=== PATIENT | male | born 1950 | race Asian ===

== ENCOUNTER → 2017-10-28 | Day surgery (SDC) | payer MEDICARE ==
[~2017-10-28] MED LIST: Lidocaine 1% PF 5 ML VIAL ONE; PROPOFOL 200 MG/20 ML VIAL ONE; ePHEDrine/0.9% NaCl/PF SYRINGE 50 mg/10 ml ONE
--- NOTE | 2017-10-28 19:19 | OP ---
DATE OF PROCEDURE: 10/28/2017 PROCEDURE: Esophagogastroduodenoscopy. SURGEON: Sky Bay M.D. ANESTHESIA: Pain medications given by Anesthesiology Department. PREPROCEDURE DIAGNOSES: 1. Cirrhosis. 2. Variceal screening. POSTPROCEDURE DIAGNOSES: 1. Grade I esophageal varices. 2. Mild portal gastropathy. PROCEDURE IN DETAIL: A written consent was obtained prior to the procedure. After adequate sedation , the forward-viewing endoscope was advanced down the stomach under direct vision to second portion o f duodenum. The duodenum appeared normal. Pylorus was patent. Mild diffuse portal gastropathy was noted in the stomach. Retroflexion did not show any varices. Grade I lower esophageal varices were noted. There were flattened with insufflation. The mid and upper esophagus appeared normal. The pa tient tolerated the procedure well. ASSESSMENT: 1. Grade I lower esophageal varices. 2. Otherwise normal upper endoscopy. RECOMMENDATION: Continue with metoprolol.
--- NOTE | 2017-10-28 19:25 | OP ---
DATE OF PROCEDURE: 10/28/2017 PROCEDURES: Colonoscopy with snare polypectomy. SURGEON: Sky Bay M.D. PREMEDICATION: Given by Anesthesiology Department. PREPROCEDURE DIAGNOSIS: History of colon polyps. POSTPROCEDURE DIAGNOSES: 1. Cecal polyp and ascending colon polyp, status post polypectomies. 2. Otherwise normal colon exam. PROCEDURE IN DETAIL: A written consent was obtained prior to procedure. After adequate sedation, th e forward-viewing endoscope was advanced through the rectum through the various segments of colon to the cecum. The colon was rather redundant. A patchy area of mucosal erythema was seen. In the cecu m across the ileocecal valve, an 8 mm semi-pedunculated polyp was noted and was removed with snare el ectrocautery with good hemostasis. In the ascending colon near hepatic flexure, a smaller 5 mm sessi le polyp was noted and was removed with snare electrocautery with good hemostasis. Both polyps were retrieved. The transverse, descending colon, and rectosigmoid colon appeared normal. Retroflexion s howed small hemorrhoids. Patient tolerated the procedure well without any complication. ASSESSMENT: 1. Cecal and ascending colon polyps, status post polypectomy. 2. Otherwise normal colon exam. PLAN: Await biopsy result.
== END ==
LOC: SDC 12:23
PROVIDERS: ATTEND Internal Medicine Gastroenterology
PROC: 0DBK8ZX Excision of Ascending Colon, Via Natural or Artificial Opening Endoscopic, Diagnostic (ICD-10-PCS; principal; 2017-10-28)
PROC: 0DBH8ZX Excision of Cecum, Via Natural or Artificial Opening Endoscopic, Diagnostic (ICD-10-PCS; 2017-10-28)
PROC: 0DJ08ZZ Inspection of Upper Intestinal Tract, Via Natural or Artificial Opening Endoscopic (ICD-10-PCS; 2017-10-28)
DX: D12.0 Benign neoplasm of cecum (principal); D12.2 Benign neoplasm of ascending colon; K74.60 Unspecified cirrhosis of liver; I85.10 Secondary esophageal varices without bleeding; K31.89 Other diseases of stomach and duodenum; I12.0 Hypertensive chronic kidney disease with stage 5 chronic kidney disease or end stage renal disease; E11.22 Type 2 diabetes mellitus with diabetic chronic kidney disease; N18.6 End stage renal disease; B18.2 Chronic viral hepatitis C; G47.30 Sleep apnea, unspecified; Z86.010 Personal history of colon polyps; Z87.891 Personal history of nicotine dependence; Z79.4 Long term (current) use of insulin; Z79.51 Long term (current) use of inhaled steroids; Z79.899 Other long term (current) drug therapy; Z88.8 Allergy status to other drugs, medicaments and biological substances; Z99.2 Dependence on renal dialysis
CPT/HCPCS: 36416; 88305; J2001; J2704

== ENCOUNTER 2018-11-02 13:15 | Inpatient (IN) | payer MEDICARE ==
[2018-11-02 13:46] LABS: #Lymphocytes 0.5 thou/uL (1.20-3.40); %Eosinophils 0.1 % (0.0-10.0); %Lymphocytes 3.6 % (21.0-51.0); %Monocytes 7.1 % (0.0-10.0); %Neutrophils 89.1 % (42.0-75.0); Mean Corpuscular HGB CONC 33.9 g/dL (32.0-36.0); Mean Corpuscular Hemoglobin 32.6 pg (27.0-31.0); Mean Corpuscular Volume 96.2 fL (78.0-98.0); Mean Platelet Volume 8.6 fL (7.4-10.4); Platelet Count 127 thou/uL (130-400); RBC Distribution Width 11.6 % (11.5-14.5); Red Blood Cell (RBC) Count 3.67 mill/uL (4.70-6.10); White Blood Cell (WBC) Count 13.5 thou/uL (4.8-10.8)
[2018-11-02 14:02] LABS: Lactic Acid 2.4 mmol/L (0.5-2.2)
--- NOTE | 2018-11-02 14:03 | RAD ---
PORTABLE CHEST 1 VIEW: Date: 11/02/18 Time: 1327 hours HISTORY: Right-sided chest pain. FINDINGS: Comparison made with exam of 11/04/16. The heart size is enlarged. The aorta is tortuous. No lobar consolidation, pneumothoraces, robert pulm onary edema, or pleural effusions are seen. Tiny radiopaque densities, likely foreign bodies, in the right chest are redemonstrated. IMPRESSION: No acute process. POS: YUNIER
[2018-11-02 14:06] LABS: ALT (SGPT) 18 U/L (8-55); AST (SGOT) 24 U/L (5-34); Albumin 2.4 g/dL (3.4-4.8); Alkaline Phosphatase 146 U/L (40-150); Anion Gap 23 mmol/L (10-20); BUN (Urea Nitrogen) 88 mg/dL (8.4-25.7); Bilirubin, Total 1.4 mg/dL (0.2-1.2); CK (CPK) 120 U/L (30-200); Calc. Creatinine Clearance 0 mL/min (70-130); Calcium 8.2 mg/dL (7.8-10.44); Carbon Dioxide 20 mmol/L (23-31); Chloride 88 mmol/L (98-107); Estimated GFR-MDRD 4; Globulin 3.7 g/dL (2.4-3.5); Glucose 257 mg/dL (80-115); Potassium 5.9 mmol/L (3.5-5.1); Protein, Total 6.1 g/dL (5.8-8.1); Sodium 125 mmol/L (136-145)
[2018-11-02 14:28] LABS: CKMB 2.1 ng/mL (0-6.6)
--- NOTE | 2018-11-02 14:32 | CT ---
CT Brain WO Con: 11/02/2018 1:54 PM CLINICAL HISTORY: Altered mental status and weakness. IMAGING TECHNIQUE: Multiple CT images were obtained of the brain without IV contrast. COMPARISON: November 04, 2016 FINDINGS: Infarct: There are remote lacunar infarcts involving the basal ganglia. There is moderate chronic sm all vessel white matter ischemic change. No acute infarct is demonstrated Hemorrhage: None.. Hydrocephalus: None.. Basal cisterns: Normal.. Cerebral parenchyma: Normal.. Midline shift: None.. Cerebellum: Normal. Brainstem: There is a remote left paramedian myra lacunar infarct. OTHER: Calvarium: Intact.. Visualized Paranasal sinuses: There is mucosal thickening with a suggested air-fluid level within the sphenoid sinus. Extracranial soft tissues:Normal. IMPRESSION: 1. No acute intracranial abnormality. 2. Findings suspicious for acute sphenoid sinusitis
--- NOTE | 2018-11-02 15:48 | PDOC.FPRHP ---
- History of Present Illness Chief Complaint: Right sided body pain and chest pain History of Present Illness: This is a 68 yo male who presents to the ED with a cc of right sided body pain and intermitent chest pain. He is unsure how long this pain has been going on but he believes 10 days. He denies having this pain before, however Dr. Alexis, his electrocardiograph repairer reports this is not a new pain for him. He states he has not had PD for 5 days due to his machine at home not working. He denies making urine. In regards to his abdominal pain, he reports it is diffuse and dull in nature. In regards to his chest pain he denies this is much of an issue. He states that his brain is foggy from his pain. ED Course: None - Allergies/Adverse Reactions Allergies Allergy/AdvReac Type Severity Reaction Status Date / Time aspirin Allergy Mild Nausea Verified 11/05/16 03:20 - Home Medications Medication Instructions Recorded Confirmed Type Amiodarone [Cordarone] 200 mg PO DAILY 11/02/18 11/02/18 History Amitriptyline HCl [Elavil] 10 mg PO HS 11/02/18 11/02/18 History Atorvastatin Calcium 40 mg PO DAILY 11/02/18 11/02/18 History Cholecalciferol (Vitamin D3) 2,000 unit PO DAILY 11/02/18 11/02/18 History [D3-2000] Gabapentin 300 mg PO BID 11/02/18 11/02/18 History Insulin Glargine,Hum.Rec.Anlog 86 unit SQ DAILY 11/02/18 11/02/18 History [Toujeo Max Solostar] Melatonin 3 mg PO HS 11/02/18 11/02/18 History Mirtazapine [Remeron Soltab] 15 mg PO HS 11/02/18 11/02/18 History Sevelamer Carbonate [Renvela] 800 mg PO TID-WM 11/02/18 11/02/18 History traMADol HCl/Acetaminophen 1 each PO Q6HR 11/02/18 11/02/18 History [Tramadol-Acetaminophn 37.5-325] - History PMHx: DM2, ESRD on PD, MDD, HTN, HFpEF, HLD PSHx: Peritoneal dialysis placement FHx: noncontributory Social: Former smoker, denies A/D - Review of Systems ROS unobtainable: due to mental status (Pt reports his pain is fogging his memory and he can not remember all the details despite using the leather goods sales representative phone) General: reports: fatigue. denies: fever/chills Cardiovascular: reports: chest pain Gastrointestinal: reports: abdominal pain (diffuse). denies: nausea, vomiting Musculoskeletal: reports: pain (pain in his right hand) Neurological: reports: numbness (BLE) - Vital signs BP: 117/65 HR: 88 RR: 10 Tmax: 99.5 Pox: 100% on RA Wt: 83 kg - Physical Exam Constitutional: awake, alert and oriented, well developed -Constitutional: mild discomfort from pain HEENT: normocephalic and atraumatic, PERRLA, EOMI, conjunctiva clear, grossly normal hearing, other (poor dentition, dry mucus membranes) Neck: FROM, trachea midline, no JVD Chest: no-tender to palpation, no lesions Heart: RRR, normal S1/S2, other (3/6 systolic murmur at right sternal border) Lungs: no respiratory distress Abdomen: other (mild distention) Musculoskeletal: normal tone, other (when distracted, minimal pain with palpation of right hand, however severe pain when undistracted) Neurological: CN II-XII intact Skin: no rash/lesions (some excoriations on back, no active lesions), good turgor Heme/Lymphatic: no unusual bruising or bleeding Psychiatric: other (AAOx3 remembers some details of what has been going on but reports a foggy brain) FMR H&P: Results - Labs Result Diagrams: 11/02/18 13:36 11/02/18 13:37 Lab results: WBC 13.5 thou/uL (4.8-10.8) H 11/02/18 13:36 Hgb 12.0 g/dL (14.0-18.0) L 11/02/18 13:36 Hct 35.3 % (42.0-52.0) L 11/02/18 13:36 MCV 96.2 fL (78.0-98.0) 11/02/18 13:36 Plt Count 127 thou/uL (130-400) L 11/02/18 13:36 Neutrophils % 89.1 % (42.0-75.0) H 11/02/18 13:36 Sodium 125 mmol/L (136-145) L 11/02/18 13:37 Potassium 5.9 mmol/L (3.5-5.1) H 11/02/18 13:37 Chloride 88 mmol/L (98-107) L 11/02/18 13:37 Carbon Dioxide 20 mmol/L (23-31) L 11/02/18 13:37 BUN 88 mg/dL (8.4-25.7) H 11/02/18 13:37 Creatinine 12.89 mg/dL (0.7-1.3) H 11/02/18 13:37 Glucose 257 mg/dL (80-115) H 11/02/18 13:37 Lactic Acid 2.4 mmol/L (0.5-2.2) H 11/02/18 13:36 Calcium 8.2 mg/dL (7.8-10.44) 11/02/18 13:37 Total Bilirubin 1.4 mg/dL (0.2-1.2) H 11/02/18 13:37 AST 24 U/L (5-34) 11/02/18 13:37 ALT 18 U/L (8-55) 11/02/18 13:37 Alkaline Phosphatase 146 U/L (40-150) 11/02/18 13:37 Creatine Kinase 120 U/L (30-200) 11/02/18 13:37 CK-MB (CK-2) 2.1 ng/mL (0-6.6) 11/02/18 13:36 Serum Total Protein 6.1 g/dL (5.8-8.1) 11/02/18 13:37 Albumin 2.4 g/dL (3.4-4.8) L 11/02/18 13:37 Lipase 47 U/L (8-78) 11/02/18 13:53 - EKG Interpretation EKG: NSR, 87BPM, no st elevation or depression QT/QTc 388/466 - Radiology Interpretation CT scan - head Status: report reviewed by me (1. No acute intracranial abnormality. 2. Findings suspicious for acute sphenoid sinusitis) FMR H&P: A/P - Problem List (1) ESRD on peritoneal dialysis Current Visit: No Status: Chronic Code(s): N18.6 - END STAGE RENAL DISEASE; Z99.2 - DEPENDENCE ON RENAL DIALYSIS (2) GERD (gastroesophageal reflux disease) Current Visit: No Status: Acute Code(s): K21.9 - GASTRO-ESOPHAGEAL REFLUX DISEASE WITHOUT ESOPHAGITIS Qualifiers: Esophagitis presence: without esophagitis Qualified Code(s): K21.9 - Gastro -esophageal reflux disease without esophagitis (3) DM2 (diabetes mellitus, type 2) Current Visit: No Status: Chronic Qualifiers: (4) Hepatitis C, chronic Current Visit: No Status: Chronic Code(s): B18.2 - CHRONIC VIRAL HEPATITIS C - Plan This is a 68 yo male with a pmh of ESRD on PD, HTN, neuropathy, HFpEF ESRD on PD, missed 5 days -Admit to tele obs -Dr. Freddy Alexis consulted, will appreciate recommendations -Plan for peritoneal dialysis tonight -Pending mag and phos levels -Pending AM BMP Right sided pain -Hx of this before, likely related to missing dialysis -Continue home pain meds, consider adding gabapentin -Possibly psychogenic -Negative CT of head Elevated troponin of 0.5 -Likely related to missed dialysis, per Dr. Alexis -No ekg findings suggestive of ACS -Will trend troponins -Consider cardiology consult in the am DM2 -Continue home meds -Moderate SSI -Hypogycemic protocol HFpEF -Continue home meds, last echo was in 2017, may benefit from outp echo HTN -Continue home meds HLD -Continue home meds MDD -Continue home meds Hx of CVA with left sided deficit Diabetic neuropathy -Continue home gabapentin Code: DNAR confirmed by me, using leather goods sales representative IPAD in ER 11/02/18 1630 Prophylaxis: Heparin Family: none at bedside Diet: Renal Fluids: SL Disposition: Home in 1-2 days pending repair of home PD machine and electrolyte normalization PCP: ALTHEA Addendum - Attending - Attending Attestation Date/Time: 11/02/182009 I personally evaluated the patient and discussed the management with Dr. Abreu. I agree with the History, Examination, Assessment and Plan documented above with any addition or exceptions noted below. The patient presented with right sided pain as well as chest pain and abdominal pain. He has been without peritoneal dialysis for [address] Alexis has been consulted and will dialyze the patient tonight. CE indeterminate, will trend. Adding pain control for the right arm pain but I couldn't reproduce it on exam.
[2018-11-02 17:24] LABS: Critical Call Chem Troponin I RESULT DECREASING
[2018-11-02] MEDS ORDERED: Dextrose 5% in Water 1,000 ML IV PRN (19:15)
[2018-11-02 19:50] LABS: Magnesium 1.7 mg/dL (1.6-2.6)
[2018-11-02 19:56] LABS: Phosphorus 9.2 mg/dL (2.3-4.7)
[2018-11-02 20:06] LABS: Troponin I 0.526 ng/mL (< 0.028)
[2018-11-02] MEDS: Gabapentin 300 MG CAP PO SCH (23:15)
[2018-11-02] MEDS: Amitriptyline HCl 10 MG TAB PO SCH (23:16)
[2018-11-02] MEDS: Mirtazapine 15 MG Soltab PO SCH (23:16)
[2018-11-02] MEDS: traMADol HCl 50 MG TAB PO SCH (23:17)
[2018-11-02] MEDS: Heparin 5,000 UNITS/ML VIAL SC SCH (23:28)
[2018-11-02] MEDS: Melatonin 3 MG TAB PO SCH (23:28)
[2018-11-02] MEDS: Insulin Regular 300 UNITS/3 ML VIAL SC PRN (23:38)
[2018-11-03] MEDS: Insulin Regular 300 UNITS/3 ML VIAL SC PRN ×4 (05:52→20:20)
[2018-11-03] MEDS: Acetaminophen 325 MG TAB PO SCH ×5 (05:56→18:43)
[2018-11-03] MEDS: traMADol HCl 50 MG TAB PO SCH ×4 (05:57→18:43)
[2018-11-03 06:14] LABS: Anion Gap 25 mmol/L (10-20); BUN (Urea Nitrogen) 88 mg/dL (8.4-25.7); Calc. Creatinine Clearance 6 mL/min (70-130); Calcium 8.6 mg/dL (7.8-10.44); Carbon Dioxide 15 mmol/L (23-31); Chloride 88 mmol/L (98-107); Estimated GFR-MDRD 4; Glucose 446 mg/dL (80-115); Potassium 5.8 mmol/L (3.5-5.1); Sodium 122 mmol/L (136-145)
--- NOTE | 2018-11-03 06:22 | PDOC.FM ---
- Subjective Subjective: Pt is slow to respond this morning and states he is in moderate right-sided pain. Increased nausea. He states he is unable to move his right arm and hand due to pain and this has been ongoing for the past week. He also states he feels confused and hard to respond. He is also very cold, but denies fever. No CP, SOB, d/c. Run of aflutter this AM, but self-resolved. - Objective MAR Reviewed: Yes Vital Signs & Weight: Vital Signs (12 hours) Temp Pulse Resp BP BP BP Pulse Ox 11/03/18 03:25 99.3 F 82 12 106/54 L 97 11/02/18 23:20 98.7 F 82 14 109/53 L 96 11/02/18 23:05 98.7 F 82 14 109/53 L 96 11/02/18 20:00 97.9 F 91 17 129/66 95 11/02/18 19:15 97.9 F 91 17 129/66 95 11/02/18 19:14 97.9 F 91 17 129/66 95 Weight Admit Weight 76.005 kg Weight 76.158 kg Result Diagrams: 11/02/18 13:36 11/03/18 05:22 EKG Reviewed by me: Yes (Tele: Run of Aflutter, self-resolved. Otherwise NSR.) Phys Exam - Physical Examination Slow to respond, appears in pain, drowsy Neck: supple Respiratory: no wheezing, no rales, no rhonchi, clear to auscultation bilateral Cardiovascular: RRR, no significant murmur, no rub midly distended, TTP on left, positive bowel sounds. 4/5 bilateral lower ext, 4/5 LUE, 2/5 RUE CN II - XII intact, drowsy and slow to respond. 2/5 strength RUE Dx/Plan (1) ESRD on peritoneal dialysis Code(s): N18.6 - END STAGE RENAL DISEASE; Z99.2 - DEPENDENCE ON RENAL DIALYSIS Status: Chronic (2) Chest pain, musculoskeletal Code(s): R07.89 - OTHER CHEST PAIN Status: Chronic (3) DM2 (diabetes mellitus, type 2) Status: Chronic Qualifiers: - Plan Plan: 68yo M with h/o DM2, ESRD on PD, MDD, HTN, HFpEF, HLD who presents with missing dialysis 2/2 machine problems 1. ESRD on PD, missed 5 days - Monitoring on tele - Dr. Alexis consulted, appreciate recommendations, Peritoneal dialysis overnight - pt retained 300ml, will likely need further dialysis. Appreciate further nephro recs. - Mg 1.7, Phos 9.2, K 5.8. Will undergo dialysis and recheck. 2. Right sided chest/body pain - Prior hx of similar sxs, likely related to missing dialysis - Continue home pain meds and monitor 3. Elevated troponin of 0.5 - Likely related to missed dialysis, per Dr. Alexis - No ekg findings suggestive of ACS. Trops trended and unchanged. 4. DM2 - Continue home meds. Moderate SSI. Hypogycemic protocol - BG elevated to 400s, continue SS and consider increasing basal insulin if continue to remain elevated. 5. HFpEF -Continue home meds, last echo was in 2017, may benefit from outp echo with PCP 6. HTN -Continue home meds 7. HLD -Continue home Lipitor 8. MDD -Continue home Remeron and elavil 9. Hx of CVA with left sided deficit 10. Diabetic neuropathy -Continue home gabapentin Code: DNAR Prophylaxis: Heparin Diet: Renal Fluids: SL Disposition: Home in 1-2 days pending repair of home PD machine and electrolyte normalization PCP: ALTHEA
[2018-11-03 06:31] LABS: Hep B Surf Ag Non-Reactive S/CO (NonReactive)
[2018-11-03] MEDS ORDERED: [UNRECOGNIZED DRUG - OTHER] SQ SCH (09:00)
[2018-11-03] MEDS ORDERED: INSULIN GLARGINE SQ SCH (09:00)
--- NOTE | 2018-11-03 10:08 | CON ---
DATE OF CONSULTATION: HISTORY OF PRESENT ILLNESS: Mr. Moore is a 68-year-old [place] male with ESRD and currently on peritoneal dialysis. He was admitted for right-sided body pain with some chest pain. He is being ruled out for AK. Chest x-ray was done, which essentially showed no CHF. In addition, CT scan of the brain showed no acute intracranial abnormality. Please note, this patient recently had an upper and lower GI endoscopy done by Dr. Bay. Polyps are found in the colon and mild grade 1 lower esophageal varices were found, but otherwise no other acute findings was noted. We are being consulted for his maintenance peritoneal dialysis. The patient also tells me that the PD machine at home was not working. We will get in touch with the [facility] to address that issue. He is tolerating current peritoneal dialysis. He has not had dialysis for a few days. We will continue with the current PD regimen. REVIEW OF SYSTEMS: Positive for malaise. Occasional right-sided weakness. No nausea. No vomiting. Decreased appetite. Decreased energy level. No hematochezia. No melena. No hematemesis. No productive cough. No fever or chills. Occasional headache. No diplopia. No syncopal episode. No diarrhea. MEDICATIONS: 1. Cordarone 200 mg daily. 2. Elavil 10 mg at bedtime. 3. Lipitor 40 mg at bedtime. 4. Vitamin D3 of 2000 international units daily. 5. Gabapentin 300 mg p.o. b.i.d. 6. Heparin 5000 units subcu t.i.d. 7. Insulin glargine 86 units daily. 8. Humulin R sliding scale. 9. Melatonin 3 mg at bedtime. 10. Mirtazapine 50 mg at bedtime. 11. Renvela 800 mg t.i.d. with meals. 12. Tramadol 50 mg q.6 p.r.n. PAST MEDICAL HISTORY: Includes the following ESRD from diabetic nephropathy, type 2 diabetes mellitus, history of AFib, glaucoma, history of hypertension ? Of cirrhosis, and history of chronic pain. PAST SURGICAL HISTORY: Status post cuffed dialysis catheter placement, status post PD catheter placement, and status post upper and lower GI endoscopy. SOCIAL HISTORY: The patient is , lives with his . He has 2 children. 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 He has history of PTSD - incarcerated after the [place] War. Currently, no smoking. Sedentary lifestyle. No alcohol intake. No IV drug abuse. Status post blood transfusion. FAMILY HISTORY: No family history of ESRD. ALLERGIES: ASPIRIN. TRAUMA: None. IMMUNIZATIONS: Up-to-date. HOSPITALIZATIONS: Please see past medical history. PHYSICAL EXAMINATION: VITAL SIGNS: Blood pressure is noted at 110/58, heart rate 82, respiratory rate 16, temperature 99, and pulse ox 98%. GENERAL: Noted to be awake, alert, supine, somewhat lethargic. SKIN: Adequate turgor. HEENT: He has a pinkish conjunctivae. Anicteric sclerae. NECK: No neck mass. No carotid bruits. No JVD. CHEST: No deformities. LUNGS: Clear breath sounds. No wheezing. No crackles. HEART: Normal sinus rhythm. No murmur. No gallops. No rubs. ABDOMEN: Globular, soft, and nontender. No masses. Positive for PD catheter. EXTREMITIES: No edema. No deformities. LABORATORY DATA: Laboratories of November 02, 2018; white count 13.5, hemoglobin 12. On November 03, 2018; sodium 122, potassium 5.8, chloride 88, carbon dioxide 15, BUN is 88, creatinine 12.49, glucose 446, calcium 8.6, phosphorus is 9.2, and magnesium 1.7. IMAGING DATA: CT scan of the brain negative. Chest x-ray, no CHF. ASSESSMENT AND PLAN: 1. End-stage renal disease. We will continue current CCPD regimen. Fluid removal only as tolerated. I do anticipate with daily nocturnal dialysis, the potassium will improve. Please note, he has not had dialysis for about 3 to 5 days. 2. Anemia. No indication for any Epogen supplementation at the present time due to the hemoglobin of 12. 3. Generalized malaise - this is nonspecific. This could be related from his missed dialysis treatment. 4. Mild hyperkalemia, undergoing peritoneal dialysis. Overall, agree with current management. We will recheck CBC and basic metabolic panel in a.m. Job ID: [id number]
[2018-11-03] MEDS: Heparin 5,000 UNITS/ML VIAL SC SCH ×4 (10:10→22:36)
[2018-11-03] MEDS: Gabapentin 300 MG CAP PO SCH ×2 (10:10→21:56)
[2018-11-03] MEDS: Amiodarone 200 MG TAB PO SCH (10:11)
[2018-11-03] MEDS: Atorvastatin Calcium 40 MG TAB PO SCH (10:11)
[2018-11-03] MEDS: Sevelamer Carbonate 800 MG TAB PO SCH ×5 (10:12→18:43)
[2018-11-03] MEDS: Insulin Glargine 86 UNITS in Pre-Filled Syringe 1 EACH SC SCH (10:12)
[2018-11-03] MEDS ORDERED: HEPARIN FS SCH (11:45)
[2018-11-03] MEDS ORDERED: PERIT DIALYSIS NO 6 FS SCH (11:45)
[2018-11-03] MEDS ORDERED: DEX FS SCH (11:45)
--- NOTE | 2018-11-03 12:38 | PRG ---
DATE OF SERVICE: 11/03/2018 Mr. Moore is dozing off during the exam this morning. He was seen in consultation by Dr. Alexis. Dr. Alexis has noted that he has not had dialysis for about 3 to 5 days. So, he will be continued on his current CCPD regimen, with fluid removal only as tolerated. He believes electrolyte abnormalities will eventually normalize with a daily nocturnal dialysis. Job ID: [id number]
[2018-11-03] MEDS ORDERED: Ondansetron ODT 4 MG TAB PO PRN (14:10)
[2018-11-03] MEDS: Ondansetron PF 4 MG/2 ML Vial IVP PRN (17:35)
[2018-11-03] MEDS: Amitriptyline HCl 10 MG TAB PO SCH (21:56)
[2018-11-03] MEDS: Mirtazapine 15 MG Soltab PO SCH (21:57)
[2018-11-03] MEDS: Melatonin 3 MG TAB PO SCH (21:57)
[2018-11-04 04:53] LABS: Anion Gap 27 mmol/L (10-20); BUN (Urea Nitrogen) 87 mg/dL (8.4-25.7); Calc. Creatinine Clearance 7 mL/min (70-130); Calcium 8.7 mg/dL (7.8-10.44); Carbon Dioxide 14 mmol/L (23-31); Chloride 89 mmol/L (98-107); Estimated GFR-MDRD 4; Glucose 374 mg/dL (80-115); Potassium 4.8 mmol/L (3.5-5.1); Sodium 125 mmol/L (136-145)
[2018-11-04 05:06] LABS: Band 28 % (5-11); Hemoglobin 12.6 g/dL (14.0-18.0); Lymphocytes 5 % (21-51); MDiff Complete? YES; Mean Corpuscular HGB CONC 32.9 g/dL (32.0-36.0); Mean Corpuscular Hemoglobin 32.1 pg (27.0-31.0); Mean Corpuscular Volume 97.5 fL (78.0-98.0); Mean Platelet Volume 9.5 fL (7.4-10.4); Monocytes 2 % (0-10); Neutrophil 65 % (42-75); Platelet Count 178 thou/uL (130-400); Platelet Morphology Comment Appears Adequate; RBC Distribution Width 11.9 % (11.5-14.5); Red Blood Cell (RBC) Count 3.93 mill/uL (4.70-6.10); White Blood Cell (WBC) Count 13.2 thou/uL (4.8-10.8)
--- NOTE | 2018-11-04 05:15 | PDOC.FM ---
- Subjective Subjective: Upon entering room to evaluate patient, patient was minimally responsive to sternal rub, GCS 4. Code Raul was then called. Patient had faint carotid pulse , difficult to obtain peripheral pulses. Report from nurse states patient was responsive, but drowsy at 0500 when given his 10u SS insulin. Nurse reports patient had been drowsy throughout the night but would respond to verbal stimulation, also reports watery, mucous diarrhea over past 24 hours. Morning labs demonstrated hyperammonemia and pt received peritoneal dialysis overnight. Stat ABG, EKG, KUB, lactic acid, Phos, Mg, and LFTs were ordered. NG tube was placed and patient was given 20mg lactulose. Dr. Alexis and Dr. Basurto were notified. Pt was then transferred to [facility] for further management. - Objective MAR Reviewed: Yes Vital Signs & Weight: Vital Signs (12 hours) Temp Pulse Resp BP Pulse Ox 11/04/18 03:25 99 F 99 12 96/58 L 94 L 11/04/18 00:00 99.2 F 103 H 14 110/56 L 94 L 11/03/18 20:00 97 Weight Admit Weight 75.75 kg Weight 74.843 kg I&O: 11/02/18 11/03/18 11/04/18 06:59 06:59 06:59 Intake Total 480 120 Output Total 0 Balance 480 120 Result Diagrams: 11/04/18 04:20 11/04/18 04:20 EKG Reviewed by me: Yes (Tele: NSR, no acute events) Phys Exam - Physical Examination Minimally responsive, GSC 4, opens eyes to sternal rub, nonverbal. Respiratory: no wheezing, no rales, no rhonchi, clear to auscultation bilateral Cardiovascular: RRR, no rub systolic ejection murmur, 3/5 Gastrointestinal: soft moderately distented, decreased bowel sounds. Musculoskeletal: no edema decreased peripheral pulses. 1+ carotid pulse. A/O x 0. Non verbal, GSC 4 Dx/Plan (1) Hepatic encephalopathy Code(s): K72.90 - HEPATIC FAILURE, UNSPECIFIED WITHOUT COMA Status: Acute (2) Lactic acid acidosis Code(s): E87.2 - ACIDOSIS Status: Acute (3) Hyperglycemia Code(s): R73.9 - HYPERGLYCEMIA, UNSPECIFIED Status: Acute (4) Hyperammonemia Code(s): E72.20 - DISORDER OF UREA CYCLE METABOLISM, UNSPECIFIED Status: Acute (5) ESRD on peritoneal dialysis Code(s): N18.6 - END STAGE RENAL DISEASE; Z99.2 - DEPENDENCE ON RENAL DIALYSIS Status: Chronic (6) Chest pain, musculoskeletal Code(s): R07.89 - OTHER CHEST PAIN Status: Chronic (7) DM2 (diabetes mellitus, type 2) Status: Chronic Qualifiers: Diabetes mellitus complication status: with hyperglycemia - Plan Plan: 68yo M with h/o DM2, ESRD on PD, MDD, HTN, HFpEF, HLD who presents with missing dialysis 2/2 machine problems 1. Hepatic encephalopathy - Ammonia 230. AST/ALT 34/18. Coag studies pending. - GSC 4 this AM. Transferred to [facility]. - NG tube placed, lactulose 20mg now and TID - Consulted Pulm, Dr. Basurto, appreciate recs. 2. Lactic acidosis - LA 5.9 from 2.4 on admit. Will trend daily. - ABG 7.42/14.7/32.1/70.4. AG 22. - KUB pending. 3. Hyperglycemia, DMII - Continue home meds with hypoglycemic protocol. - BG 300s. Given 20u humalog this AM. Will continue to monitor with q4h accuchecks and provide SS insulin. 4. Hyperphosphatemia - 9.2 --> 9.7. s/p peritoneal dialysis overnight. Will continue to monitor and await nephro recs. 5. Diarrhea - watery, mucous diarrhea over past 24 hours. Probably constipation with encopresis. Will provide miralax. - KUB ordered - Stool studies pending 6. ESRD on PD, missed 5 days - Dr. Alexis consulted and notified of acute change, appreciate recommendations, Appreciate further nephro recs. - Mg 1.1, Phos 9.7, K 5.8 -> 4.8. Underwent dialysis overnight. 7. Right sided chest/body pain - Prior hx of similar sxs, likely related to missing dialysis - troponin 0.5, trended and stable. No EKG findings suggestive of ACS. - Continue home pain meds and monitor 8. HFpEF - Continue home Amio, renvela, and lipitor. Last echo was in 2017, may benefit from outp echo with PCP 9. MDD - Continue home Remeron and elavil Code: DNAR Prophylaxis: Heparin Diet: NPO Fluids: SL Disposition: Transferred to [facility]. Appreciate Nephro and Pulm recs. Pending clinical improvement and dialysis. Anticipate hospitalization 3-4 days longer. PCP: TAMP
[2018-11-04] MEDS: Insulin Regular 300 UNITS/3 ML VIAL SC PRN ×5 (05:33→18:29)
[2018-11-04 06:39] LABS: Magnesium 1.7 mg/dL (1.6-2.6)
[2018-11-04 06:45] LABS: Phosphorus 9.7 mg/dL (2.3-4.7)
[2018-11-04 07:10] LABS: Lactic Acid 5.9 mmol/L (0.5-2.2)
[2018-11-04 07:11] LABS: Actual Bicarbonate (HCO3a) 14.7 mEq/L (22-28); Analyzer IN Cardio OR; Base Excess (BEa) -7.8 mEq/L (-2.0 to +3.0); Calcium, Ionized 1.01 mmol/L (1.12-1.30); Carboxyhemoglobin (COHb) 0.7 gm% (0.0-3.0); Hemoglobin (Hb) 12.3 g/dL (14.0-18.0); O2 Tension (PaO2) 70.4 mmHg (> 80.0); Potassium - ABG Lab 4.26 mmol/L (3.70-5.30); pH, Arterial 7.42 (7.35-7.45)
[2018-11-04 07:13] LABS: ALV-art Gradient 50.455 (0-20); CO2 Tension 23.1 mmHg (35.0-45.0); Puncture Site RRA
[2018-11-04 08:08] LABS: ALT (SGPT) 18 U/L (8-55); AST (SGOT) 34 U/L (5-34); Albumin 2.1 g/dL (3.4-4.8); Alkaline Phosphatase 129 U/L (40-150); Bilirubin, Direct 0.3 mg/dL (0.1-0.3); Bilirubin, Total 1.1 mg/dL (0.2-1.2); Protein, Total 6.8 g/dL (5.8-8.1)
[2018-11-04 09:21] LABS: INR-International Normal Ratio 1.2; Prothrombin Time 15.3 SEC (12.0-14.7)
--- NOTE | 2018-11-04 09:44 | RAD ---
XR Abdomen 1 View/KUB History: Enteric tube placement Comparison: None. Findings: A weighted feeding tube is in place with tip at the gastric fundus. There are dilated loops of small bowel in the abdomen. Evaluation for free air is limited without an upright examination. Impression: 1. Weighted feeding tube tip in the gastric fundus. Recommend advancing. 2. Dilated loops of small bowel throughout the abdomen suggesting small bowel obstruction. 3. Evaluation for free air is limited without an upright exam.
--- NOTE | 2018-11-04 09:45 | PRG ---
DATE OF SERVICE: 11/04/2018 SUBJECTIVE: Mr. Moore is a 68-year-old Faroese male with ESRD and followed up by the Renal Service for his peritoneal dialysis. The patient was noted to be unresponsive today. Laboratories were checked and he was found to have significantly elevated ammonia, noted to be 230. His phosphorus was also elevated at the value of 9.7. I am currently evaluating the patient. He is still unresponsive. OBJECTIVE: VITAL SIGNS: Blood pressure is currently noted at 88/70, heart rate 70, pulse ox 95%. GENERAL: The patient is unresponsive, comfortable, not in distress. SKIN: Adequate turgor. HEENT: He has pinkish conjunctivae. Anicteric sclerae. NECK: No neck mass. No carotid bruits. No JVD. CHEST: No deformities. LUNGS: Decreased breath sounds. HEART: Normal sinus rhythm. No murmur. No gallops. No rubs. ABDOMEN: Globular, soft, nontender. No masses. Positive for PD catheter. EXTREMITIES: No edema. No deformities. MEDICATIONS: Medications of November 04, 2018, was reviewed. LABORATORY DATA: Laboratories of November 04, 2018; white count 13.2, hemoglobin was noted at 12.6. Sodium 135, potassium 4.5, chloride 89, carbon dioxide 14, BUN is 87, creatinine 11.61, glucose 374, calcium is 8.7. Ammonia level 230, phosphorus 9.7, magnesium 1.7. Lactic acid 5.9. ASSESSMENT AND PLAN: 1. Decreased mentation. This could be related to hepatic encephalopathy as suggested by an elevated ammonia level. I would not rule out uremic symptoms at this patient since he has not been dialyzing adequately at home. My plan is to resume back hemodialysis using 1.5% PD solution continuously until the following day. 2. Cirrhosis/hepatic encephalopathy. Continue current management on lactulose. 3. End-stage renal disease. Continue CCPD, except we will do a longer dialysis today. Use 1.5% PD solution. We will discuss this with the PD nurse. Job ID: [id number]
[2018-11-04] MEDS: Acetaminophen 325 MG TAB PO SCH (09:57)
[2018-11-04] MEDS: traMADol HCl 50 MG TAB PO SCH (09:58)
[2018-11-04] MEDS: Heparin 5,000 UNITS/ML VIAL SC SCH ×3 (10:03→21:51)
[2018-11-04] MEDS: Insulin Glargine 86 UNITS in Pre-Filled Syringe 1 EACH SC SCH (10:10)
[2018-11-04] MEDS ORDERED: Sodium Chloride 0.9% 1,000 ML IV SCH ×3 (11:15→19:00)
[2018-11-04] MEDS ORDERED: SYSTANE 3.5 GM TUBE EA EYE PRN (11:19)
--- NOTE | 2018-11-04 11:19 | ULT ---
ULTRASOUND ABDOMEN: Dated: 11/04/18 HISTORY: Cirrhosis. Elevated ammonia. FINDINGS: The liver demonstrates coarse echogenicity and irregular surface consistent with cirrhosis. No defini te focal mass or intrahepatic ductal dilatation is seen. The spleen measures 13.7 cm in length. No gallstones or gallbladder wall thickening or pericholecysti c fluid is seen. The common duct measures 4 mm in diameter. The pancreas, abdominal aorta, and mid in ferior portions of the right kidney are not satisfactorily seen due to overlying bowel gas. No hydron ephrosis is seen on either side. There is a 1.9 cm cyst arising from the superior pole of the right k idney. There are two cysts in the left kidney, the larger measuring 5.0 cm. No free fluid is seen. IMPRESSION: 1. Cirrhosis of the liver. 2. Mild splenomegaly. 3. Bilateral renal cysts. POS: OFF
[2018-11-04] MEDS ORDERED: Midazolam HCl 2 mg/2 ml Vial ONE (11:23)
[2018-11-04] MEDS ORDERED: Ventilator Sedation Protocol 1 EACH FS SCH (11:30)
[2018-11-04 11:34] LABS: ALT (SGPT) 18 U/L (8-55); AST (SGOT) 33 U/L (5-34); Albumin 2.3 g/dL (3.4-4.8); Alkaline Phosphatase 139 U/L (40-150); Anion Gap 29 mmol/L (10-20); BUN (Urea Nitrogen) 83 mg/dL (8.4-25.7); Bilirubin, Total 1.2 mg/dL (0.2-1.2); Calc. Creatinine Clearance 7 mL/min (70-130); Calcium 8.9 mg/dL (7.8-10.44); Carbon Dioxide 15 mmol/L (23-31); Chloride 88 mmol/L (98-107); Estimated GFR-MDRD 5; Globulin 4.6 g/dL (2.4-3.5); Glucose 334 mg/dL (80-115); Potassium 4.5 mmol/L (3.5-5.1); Protein, Total 6.9 g/dL (5.8-8.1); Sodium 127 mmol/L (136-145)
[2018-11-04] MEDS ORDERED: Rocuronium Bromide 50 MG/5 ML VIAL ONE (11:34)
[2018-11-04] MEDS ORDERED: fentaNYL Citrate/PF 2,000 MCG in Sodium Chloride 0.9% 60 ML IV SCH (11:39)
[2018-11-04] MEDS ORDERED: Propofol 1,000 MG/100 ML VIAL IV PRN (11:39)
[2018-11-04] MEDS ORDERED: DISCONTINUE PREVIOUS NARCOTIC PAIN MEDICATIONS AND BENZODIAZEPINES FS SCH (11:39)
[2018-11-04] MEDS ORDERED: Lorazepam 2 MG/ML VIAL SLOW IVP PRN (11:39)
[2018-11-04] MEDS ORDERED: Morphine 2 MG/ML SYRINGE SLOW IVP PRN (11:39)
[2018-11-04] MEDS ORDERED: Propofol BOLUS 1,000 MG/100 ML VIAL IV PRN (11:39)
[2018-11-04] MEDS ORDERED: Fentanyl BOLUS 250 ML IVPB PRN (11:39)
[2018-11-04] MEDS ORDERED: Midazolam HCl 2 mg/2 ml Vial IVP SCH (11:45)
--- NOTE | 2018-11-04 11:57 | PRG ---
DATE OF SERVICE: 11/04/2018 Mr. Moore was much more somnolent, very early this morning and was transferred to ICU. His workup thus far shows an abnormal blood gas with a pH of 7.42, bicarb of 15, pCO2 of 23.1, and pO2 of 70.4. He is also noted to have a very elevated ammonia level of 230. We have started him on treatment for with lactulose. He has a history of hepatitis C, although it evidently was only partially treated. We reviewed records from 2017, at which time he had received partial treatment; although, his HCV RNA was negative. We will repeat these studies and also order a right upper quadrant ultrasound to monitor the progression if any of his cirrhosis. Dr. Alexis is aware of the transfer and is also helping out on the case. Our working diagnosis now is probable hepatic encephalopathy and as stated, we already have him on lactulose treatment. Job ID: [id number]
--- NOTE | 2018-11-04 12:14 | RAD ---
XR Chest 1 View Portable History: Endotracheal tube placement Comparison: Radiograph 2 days prior Findings: Patient is intubated endotracheal tube tip at the level of the clavicles in good position. Enteric tube tip is at the gastric fundus. Old right posterior seventh rib fracture. Radiopaque object projects over the right posterior first rib. Mild atelectasis both lung bases. Impression: Endotracheal tube tip in good position.
--- NOTE | 2018-11-04 12:30 | CON ---
DATE OF CONSULTATION: 11/04/2018 SERVICE: Pulmonary Medicine. REASON FOR CONSULTATION: ICU patient. HISTORY OF PRESENT ILLNESS: The patient is a 68-year-old Senegalese male with past medical history significant for end-stage renal disease. He is on peritoneal dialysis, but apparently his machine broke. As such, he went last 5 days without any dialysis. He cannot provide any additional elements of the history because of encephalopathy. He was on the floor, but because of increasing mental status changes, he was subsequently brought down to the ICU. At this point, he cannot provide any additional elements of the history. He is not responding to noxious stimuli. He does have pupils that are equal and round. They do respond with light. He is breathing. An ABG suggested that he is holding his own for his metabolic acidosis. That being said, he is completely obtunded. PAST MEDICAL HISTORY: 1. Type 2 diabetes mellitus. 2. End-stage renal disease, on peritoneal dialysis. 3. Hypertension. 4. Dyslipidemia. 5. Chronic diastolic heart failure. 6. Major depressive disorder. PAST SURGICAL HISTORY: Peritoneal dialysis catheter placement. FAMILY HISTORY: Noncontributory. SOCIAL HISTORY: He has a remote history of smoking. Denies alcohol or illicit drugs. ALLERGIES: ASPIRIN. MEDICATIONS: List of his inpatient medications was reviewed and heavily modified. REVIEW OF SYSTEMS: This cannot be obtained as the patient is currently encephalopathic. PHYSICAL EXAMINATION: VITAL SIGNS: Afebrile, pulse 89, blood pressure 118/67, respirations 11, and saturation 100% on room air currently. GENERAL: The patient is completely obtunded. He does not respond to noxious stimuli. His Scooter Coma Scale is about 4. HEENT: Normocephalic and atraumatic. Sclerae are white. Conjunctivae are pink. Oral mucosa is moist without lesions. LUNGS: Decent air entry. There is a prolonged expiratory phase and a little bit of wheezing. HEART: Normal rate. Regular. ABDOMEN: Completely distended. Bowel sounds are hypoactive and have a slight high-pitch to them. MUSCULOSKELETAL: No cyanosis or clubbing. There is no pitting in the bilateral lower extremities. NEUROLOGIC: He is diffusely encephalopathic. He does not withdraw from noxious stimuli. He makes incomprehensible sounds, and will spontaneously open up his eyes, particularly with noxious stimuli. LABORATORY DATA: White blood cell count 13.2, hemoglobin 12.6, platelets 178, 000, band count is 28% on top of 65% neutrophils. INR 1.2. A pH 7.42, pCO2 of 23, and pO2 of 70. Creatinine 11 and BUN 87 and roughly stable. Sodium 125 and gently up-trending. Lactate 5.9 and up-trending. Phosphorus 9.7 and magnesium 1.7. Liver function studies are otherwise unremarkable. Ammonia level is 230. Campylobacter and shiga toxin were negative. IMAGING STUDIES: CT of the brain demonstrates no acute intracranial abnormality. Chest x-ray demonstrates no acute process. Abdominal x-ray demonstrates severe distention of the small loops of bowel. Bowel obstruction is present. Free air cannot be assessed in the supine position. ASSESSMENT: 1. Metabolic encephalopathy. 2. End-stage renal disease, on hemodialysis, with noncompliance secondary to malfunctioning equipment. 3. Hyponatremia. 4. Severe sepsis. 5. Ileus versus small-bowel obstruction. DISCUSSION AND PLAN: We are going to need to place an NG tube. The small bore feeding catheter is not going to work here. Once it is down in the stomach, we will put it to intermittent suction. We are working on getting contact with the patient's , so that we can determine what his true code status is. Without intubation, the patient is unlikely to survive this hospital stay. He is currently not able to protect his airway as his GSC is simply too low. Furthermore, he is at very high risk for nausea and vomiting and subsequent aspiration, which will be a fatal event. Nebulized medications will be initiated. Pulmonary/Critical Care will continue to follow closely. Critical care time: 30 minutes. Job ID: [id number] MTDD
[2018-11-04] MEDS: Polyethylene Glycol 3350 17 GM Packet PER TUBE SCH (12:54)
[2018-11-04 14:52] LABS: BF Color Colorless; BF RBC Count - Manual 1 /cumm; BF WBC/Nonhematics Ct. - Manua 1 /cumm; Body Fluid Source Dialysate Fluid; Clarity Clear (Clear); Tube # EDTA
[2018-11-04] MEDS: Piperacillin/Tazobactam 2.25 GM in Sodium Chloride 0.9% 100 ML IVPB SCH ×2 (14:52→21:52)
[2018-11-04 14:55] LABS: Actual Bicarbonate (HCO3a) 17.5 mEq/L (22-28); Base Excess (BEa) -6.9 mEq/L (-2.0 to +3.0); CO2 Tension 31.9 mmHg (35.0-45.0); Calcium, Ionized 0.99 mmol/L (1.12-1.30); Carboxyhemoglobin (COHb) 0.9 gm% (0.0-3.0); Hemoglobin (Hb) 12.7 g/dL (14.0-18.0); O2 Tension (PaO2) 87.1 mmHg (> 80.0); pH, Arterial 7.36 (7.35-7.45)
[2018-11-04 14:56] LABS: ALV-art Gradient 51.275 (0-20); Puncture Site RRA
--- NOTE | 2018-11-04 19:41 | OP ---
DATE OF PROCEDURE: 11/04/2018 SERVICE: Pulmonary Medicine. PROCEDURE PERFORMED: Endotracheal intubation, emergent. CONSENT: Procedure was performed emergently secondary to clinical condition and respiratory failure. As such, consent was implied. We did discuss code status with the patient's immediately prior to placing this tube. She is affirmed that he would be a DNR and would not want chest compressions, but would be okay with intubation. STAFF PHYSICIAN: Cristóbal Basurto MD MEDICATIONS USED: 1. Versed 2 mg IV push. 2. Rocuronium 50 mg IV push. PREPROCEDURE DIAGNOSES: 1. Metabolic encephalopathy. 2. Anion gap metabolic acidosis. POSTPROCEDURE DIAGNOSES: 1. Metabolic encephalopathy. 2. Metabolic acidosis. DESCRIPTION OF PROCEDURE: Vital sign monitoring was accomplished by noninvasive hemodynamic monitoring, pulse oximetry, and telemetry. In the supine position, the patient was preoxygenated with [id number]-aacl ventilation and maintained with saturations of 100%. Following induction of anesthesia, a #4 GlideScope was inserted through the mouth offering clear identification of the posterior oropharynx and laryngeal structures with a grade 2 view. A 7.5-Albanian endotracheal tube was visualized passing through the vocal cords. Placement was confirmed by condensation in the endotracheal tube, colorimetric capnography, and bi-axillary chest auscultation. Endotracheal tube was secured at 24 cm, measured at the gums. The patient was placed on mechanical ventilation with good return of volumes. Postprocedure x-ray demonstrated good location for the endotracheal tube within the trachea. ESTIMATED BLOOD LOSS: None. COMPLICATIONS: None. Job ID: [id number]
[2018-11-04] MEDS: Sevelamer Carbonate 800 MG TAB PO SCH (21:06)
[2018-11-04] MEDS: methylPREDNISolone Sod Succ 40 MG VIAL IVP SCH (21:51)
--- NOTE | 2018-11-04 22:07 | CON ---
DATE OF CONSULTATION: 11/04/2018 CHIEF COMPLAINT: Confusion. HISTORY OF PRESENT ILLNESS: Mr. Moore was admitted on 11/02/2018 with generalized chest pain and body pain. He had confusion on presentation. He had been on peritoneal dialysis. His machine had been broken for the preceding several days and he had had no peritoneal dialysis for 5 days prior to presenting to the hospital. Subsequently, his mental status worsened and he ultimately required intubation and mechanical ventilation to protect his airway. He had an x-ray that showed distended small bowel loops concerning for an ileus and therefore he had an NG tube placed to low intermittent suction. He has had no significant output from his NG tube or OG-tube. He had an ultrasound of the abdomen performed this morning that showed signs of cirrhosis and splenomegaly. His ammonia was noted to be markedly elevated. PAST MEDICAL HISTORY: End-stage renal disease, on peritoneal dialysis, cirrhosis of the liver and chronic hepatitis C, diabetes mellitus, hypertension, gastroesophageal reflux disease. PAST SURGICAL HISTORY: Peritoneal dialysis catheter placement. FAMILY HISTORY: Negative for GI malignancy. SOCIAL HISTORY: No alcohol or illicit drugs, ongoing tobacco use. ALLERGIES: ASPIRIN. MEDICATIONS: Prior to admission; 1. Amiodarone. 2. Amitriptyline. 3. Atorvastatin. 4. Vitamin D. 5. Gabapentin. 6. Insulin. 7. Melatonin. 8. Mirtazapine. 9. Sevelamer. 10. Tramadol. REVIEW OF SYSTEMS: Unobtainable as the patient is obtunded on the ventilator, he is not on sedation. PHYSICAL EXAMINATION: VITAL SIGNS: Temperature 98.6, blood pressure 109/62, pulse 90. GENERAL: He is obtunded. He is in no acute distress. He has an endotracheal tube in place. EYES: No scleral icterus. LUNGS: Clear to auscultation bilaterally. HEART: Regular rate and rhythm without murmur. LYMPH: He has no cervical or supraclavicular lymphadenopathy. ABDOMEN: Moderately distended with ascites. Bowel sounds are present. EXTREMITIES: 1+ upper and lower extremity edema. LABORATORY DATA: INR 1.2. White blood cell count 13.2, hemoglobin 12.6, platelets 178. Creatinine 11.26 with a BUN of 83. Sodium is 127, potassium 4.5, chloride 88, CO2 15, bilirubin 1.2, AST 33, ALT 18, alkaline phosphatase 139, ammonia 143, albumin 2.3. He had cell count performed on his dialysis catheter fluid which showed a white blood cell count of 1. IMPRESSION: 1. Hepatic encephalopathy with an elevated ammonia level at over 140. 2. Question of ileus with dilated small bowel by x-ray. It is not clear if he was having significant nausea and vomiting prior to that. Given the significant gaseous distention of the bowel, I do not think he would tolerate oral lactulose through the NG tube at this time. Lactulose will have to be given rectally as retention enema. For now, he has had no significant output from his NG tube and if he continues to have very little output from the NG suction, then we might be able to give a trial of lactulose through the NG tube tomorrow. His abdomen is somewhat distended, but I think this is potentially also related to the ascites. 3. Ascites. He is on peritoneal dialysis. The fluid is negative for spontaneous bacterial peritonitis by cell count and culture. 4. Cirrhosis secondary to chronic hepatitis C. 5. End-stage renal disease, on peritoneal dialysis. RECOMMENDATIONS: Lactulose enema and repeat as necessary. If his NG tube does not have significant output tomorrow, then hopefully we will be able to shift dosing through the gastric tube rather than rectal administration. Job ID: [id number]
[2018-11-04] MEDS: Lactulose 10 GM/15 ML Oral Solution PR SCH (22:24)
[2018-11-04] MEDS: Atorvastatin Calcium 40 MG TAB PO SCH (22:51)
[2018-11-04] MEDS: Amiodarone 200 MG TAB PO SCH (22:51)
[2018-11-04] MEDS: Gabapentin 300 MG CAP PO SCH (22:51)
[2018-11-05] MEDS ORDERED: Sodium Chloride 0.9% 1,000 ML IV SCH ×2 (00:30→19:15)
[2018-11-05] MEDS: Lactulose 10 GM/15 ML Oral Solution PR SCH (03:28)
[2018-11-05] MEDS: Insulin Regular 300 UNITS/3 ML VIAL SC PRN ×4 (04:27→19:54)
[2018-11-05 04:39] LABS: #Lymphocytes 0.3 thou/uL (1.20-3.40); #Monocytes 0.3 thou/uL (0.11-0.59); #Neutrophils 7.7 thou/uL (1.40-6.50); %Basophils 0.6 % (0.0-1.0); %Eosinophils 0.1 % (0.0-10.0); %Lymphocytes 3.5 % (21.0-51.0); %Monocytes 3.7 % (0.0-10.0); %Neutrophils 92.1 % (42.0-75.0); Hemoglobin 11.8 g/dL (14.0-18.0); Mean Corpuscular HGB CONC 33.1 g/dL (32.0-36.0); Mean Corpuscular Hemoglobin 32.1 pg (27.0-31.0); Mean Corpuscular Volume 97.2 fL (78.0-98.0); Mean Platelet Volume 9.4 fL (7.4-10.4); Platelet Count 149 thou/uL (130-400); RBC Distribution Width 11.8 % (11.5-14.5); Red Blood Cell (RBC) Count 3.66 mill/uL (4.70-6.10); White Blood Cell (WBC) Count 8.4 thou/uL (4.8-10.8)
[2018-11-05 05:04] LABS: Lactic Acid 6.9 mmol/L (0.5-2.2)
[2018-11-05 05:14] LABS: ALT (SGPT) 15 U/L (8-55); AST (SGOT) 32 U/L (5-34); Albumin 1.9 g/dL (3.4-4.8); Alkaline Phosphatase 128 U/L (40-150); Anion Gap 24 mmol/L (10-20); BUN (Urea Nitrogen) 66 mg/dL (8.4-25.7); Bilirubin, Total 1.1 mg/dL (0.2-1.2); Calc. Creatinine Clearance 8 mL/min (70-130); Calcium 8.4 mg/dL (7.8-10.44); Carbon Dioxide 13 mmol/L (23-31); Chloride 95 mmol/L (98-107); Estimated GFR-MDRD 6; Globulin 3.9 g/dL (2.4-3.5); Glucose 240 mg/dL (80-115); Potassium 3.9 mmol/L (3.5-5.1); Protein, Total 5.8 g/dL (5.8-8.1); Sodium 128 mmol/L (136-145)
--- NOTE | 2018-11-05 05:46 | PDOC.FM ---
- Subjective Subjective: Intubated and sedated, undergoing peritoneal dialysis. Cross-coverage team spoke with family and confirmed DNR status with continued intubation. No acute events overnight. - Objective MAR Reviewed: Yes Vital Signs & Weight: Vital Signs (12 hours) Temp Pulse Resp BP Pulse Ox 11/05/18 04:00 11 L 11/05/18 02:00 12 11/05/18 01:12 94 95 11/05/18 01:11 95 11/05/18 00:00 13 11/04/18 22:00 14 11/04/18 21:22 110 H 88/55 L 11/04/18 20:00 16 97 11/04/18 19:04 89 12 100 11/04/18 19:00 98.6 F 11/04/18 18:00 98.1 F 9 L Weight Admit Weight 75.75 kg Weight 84.6 kg Most Recent Monitor Data Heart Rate from ECG 89 NIBP 84/55 NIBP BP-Mean 64 Respiration from ECG 24 SpO2 100 I&O: 11/03/18 11/04/18 11/05/18 06:59 06:59 06:59 Intake Total 230 675 6844 Output Total 0 0 Balance 331 489 7615 Result Diagrams: 11/05/18 04:25 11/05/18 04:25 Radiology Reviewed by me: Yes (CXR - no acute process, ETT in appropriate location) Phys Exam - Physical Examination Intubated and sedated. HEENT: moist MMs ETT in place Respiratory: no wheezing Upper airway secretions transmitted BL. Mild bibasilar rales. Cardiovascular: RRR, no rub 3/6 systolic ejection murmur Gastrointestinal: soft, positive bowel sounds Distention improved. Musculoskeletal: no edema Dx/Plan (1) Hepatic encephalopathy Code(s): K72.90 - HEPATIC FAILURE, UNSPECIFIED WITHOUT COMA Status: Acute (2) Small bowel obstruction Code(s): K56.609 - UNSP INTESTNL OBST, UNSP TO PARTIAL VERSUS COMPLETE OBST Status: Acute (3) Lactic acid acidosis Code(s): E87.2 - ACIDOSIS Status: Acute (4) Hyperammonemia Code(s): E72.20 - DISORDER OF UREA CYCLE METABOLISM, UNSPECIFIED Status: Acute (5) Elevated procalcitonin Code(s): R79.89 - OTHER SPECIFIED ABNORMAL FINDINGS OF BLOOD CHEMISTRY Status : Acute (6) Hyperglycemia Code(s): R73.9 - HYPERGLYCEMIA, UNSPECIFIED Status: Acute (7) ESRD on peritoneal dialysis Code(s): N18.6 - END STAGE RENAL DISEASE; Z99.2 - DEPENDENCE ON RENAL DIALYSIS Status: Chronic (8) Hepatic cirrhosis due to chronic hepatitis C infection Code(s): B18.2 - CHRONIC VIRAL HEPATITIS C; K74.60 - UNSPECIFIED CIRRHOSIS OF LIVER Status: Chronic (9) Chest pain, musculoskeletal Code(s): R07.89 - OTHER CHEST PAIN Status: Chronic (10) DM2 (diabetes mellitus, type 2) Status: Chronic Qualifiers: Diabetes mellitus complication status: with hyperglycemia - Plan Plan: 68yo M with h/o DM2, ESRD on PD, MDD, HTN, HFpEF, HLD who presents with missing dialysis 2/2 machine problems now with hepatic encephalopathy, intubated in the ICU. 1. Hepatic encephalopathy - Ammonia 230--> 153. LFTs and Coag WNL. - Currently intubated and sedated. - Consulted GI, Dr. Valerio, rec lactulose enema to transition to NG lactulose as tolerated, appreciate recs. - Consulted Pulm, Dr. Basurto, patient currently intubated, however still DNR, appreciate recs. Vent settings: SIMV + PS, PEEP 4.5, Ppeak 15, 21% FiO2, I:E 1:3.8, Vt 850 - Palliative care consulted for senior living goal planning, appreciate recs. 2. Small bowel obstruction, concern for infection - NG to low-intermediate wall suction with bowel rest. Lactulose enemas with transition to NG - 0 output from NG. - Plan for conservative management, and will consult surgery if clinical status worsens 3. Elevated Procal with leukocytosis - Leukocytosis resolved after started abx. 13 -> 8.4 - Procal 8.99 -> 6.59 - On zosyn Day 2. Afebrile, no obvious source of infection. - Peritoneal fluid analysis without WBC or bacteria. Will await Peritoneal fluid Cx and Blood Cx. - CXR without acute consolidation. 4. Lactic acidosis - LA 2.4 -> 5.9 -> 6.9. Continue to trend. - KUB demonstrated SBO 5. Hyperglycemia, DMII - Improve BG to 200s. Continue SS with 86u Lantus and hypoglycemic protocol. 6. Hyperphosphatemia - 9.2 --> 9.7. s/p peritoneal dialysis overnight. Will continue to monitor and await nephro recs. 7. Diarrhea - KUB demonstrated small bowel obstruction, diarrhea likely 2/2 encopresis. On miralax and lactulose. - Stool campy, e.coli negative. Lactoferrin pending. 8. ESRD on PD, missed 5 days prior to admission - Dr. Alexis consulted, continue perironteal dialysis with monitoring of lytes, appreciate recs - K 5.8 -> 4.8 ->3.9. Will continue to monitor. Underwent dialysis overnight. 9. Cirrhosis - h/o of Hep C, treated - GI consulted, appreciate recs - Likely contributing to #1. On lactulose and miralax - Hep C RNA pending. - RUQ US demonstrated cirrhosis, mild splenomegaly, and BL renal cysts 10. HFpEF - Home meds currently held. Last echo was in 2017, may benefit from outp echo with PCP - s/p 1L NS yesterday, appears slightly volume overload with bibasilar rales on PE, undergoing dialysis, will continue to monitor. 11. MDD - Currently holding home meds. Code: DNAR - cross-coverage team spoke with daughter and and confirmed code status Prophylaxis: Heparin Diet: NPO Fluids: SL Disposition: Intubated and sedated in ICU. Appreciate quality assurance consultant recs. Continue dialysis, abx, and supportive care. Pending clinical improvement. PCP: ALTHEA
[2018-11-05] MEDS: Piperacillin/Tazobactam 2.25 GM in Sodium Chloride 0.9% 100 ML IVPB SCH ×3 (05:58→22:34)
[2018-11-05] MEDS: Heparin 5,000 UNITS/ML VIAL SC SCH ×3 (08:23→22:33)
[2018-11-05] MEDS: Polyethylene Glycol 3350 17 GM Packet PER TUBE SCH (08:23)
[2018-11-05] MEDS: methylPREDNISolone Sod Succ 40 MG VIAL IVP SCH ×2 (08:24→22:34)
[2018-11-05] MEDS: Insulin Glargine 86 UNITS in Pre-Filled Syringe 1 EACH SC SCH (08:27)
--- NOTE | 2018-11-05 09:01 | PRG ---
DATE OF SERVICE: 11/05/2018 SUBJECTIVE: Mr. Moore is a 68-year-old Indian male with ESRD and followed up by the Renal Service for his peritoneal dialysis. Due to the possibility of uremia with this patient, we extended the peritoneal dialysis time. He was also noted to have an elevated ammonia. GI consult has been done. Initial KUB shows suggestion of small bowel obstruction. Of interest, this patient underwent an upper GI endoscopy back on October 28 with no significant finding except for a grade 1 varices. No acute events noted last night. His mentation is still unimproved. He has received lactulose per rectum. The patient has been prophylactically intubated. OBJECTIVE: VITAL SIGNS: Blood pressure is 82/61, heart rate 87, respiratory rate 15, pulse oximetry 97%. GENERAL: The patient is unresponsive, intubated, on ventilator support. SKIN: Adequate turgor. HEENT: He has pinkish conjunctivae. Anicteric sclerae. No neck mass. No carotid bruits. No JVD. CHEST: No deformities. LUNGS: Decreased breath sounds. HEART: Normal sinus rhythm. No murmur. No gallops or rubs. ABDOMEN: Globular, soft, nontender. No masses. Distended belly. Positive for PD catheter. EXTREMITIES: No edema. No deformities. MEDICATIONS: Medications of October 28, 2018 through November 05, 2018, was reviewed. LABORATORY DATA: Laboratories of November 05, 2018; white count 8.4, hemoglobin 11.8, sodium 128, potassium 2.9, chloride 95, carbon dioxide 13, BUN 66, creatinine 9.25, glucose 240, AST 32, and ALT 15. Ammonia level is 153 - decreased. TSH 0.8. Procalcitonin 6.59. ASSESSMENT AND PLAN: 1. Decreased mentation - considering hepatic encephalopathy. GI is following. 2. Small bowel obstruction - currently on n.p.o. Continue supportive care. 3. End stage renal disease continuing current peritoneal dialysis. We will do an extended time again with this patient with his peritoneal dialysis. Minimal fluid removal with the peritoneal dialysis due to the low BP. We are using a 1.5% PD solution with this patient. 4. Overall prognosis remains guarded. Job ID: [id number]
[2018-11-05] MEDS ORDERED: Lactated Ringer's 1,000 ML IV SCH (10:00)
[2018-11-05] MEDS ORDERED: ISOVUE-370 76%-LOCM 1 ML ONE (10:24)
[2018-11-05] MEDS: Sodium Chloride 0.9% 1,000 ML IV SCH ×2 (10:31→22:34)
--- NOTE | 2018-11-05 11:45 | PRG ---
DATE OF SERVICE: 11/05/2018 Mr. Moore is sedated on the ventilator. In examining his abdomen, he appears a bit more distended than yesterday. We likely having given the NG suctioning time, but I would recommend, we have the surgeon also evaluate the patient. We will continue to follow with the imaging administrator and begin lactulose, retention enemas versus per NG tube. His overall prognosis remains very guarded. Job ID: [id number]
--- NOTE | 2018-11-05 12:52 | RAD ---
PORTABLE KUB: 11/05/18 HISTORY: Abdominal distention. COMPARISON: Prior day's exam. An NG or Dobhoff type tube is partially visualized in the left upper quadrant of the abdomen. The bow el gas pattern shows dilated small bowel loops slightly reduced in caliber as compared to the prior e xamination. IMPRESSION: Some minimal reduction in the degree of small bowel distention. Still with findings consistent with a fairly highly grade obstruction as no air is seen within the colon. There is a catheter present in the left lower quadrant which is probably related to dialysis type catheter. POS: [facility]
--- NOTE | 2018-11-05 13:14 | EKG ---
Test Reason : Blood Pressure : / mmHG Vent. Rate : 077 BPM Atrial Rate : 077 BPM P-R Int : 184 ms QRS Dur : 108 ms QT Int : 416 ms P-R-T Axes : 032 -12 033 degrees QTc Int : 470 ms Normal sinus rhythm Normal ECG When compared with ECG of 02-NOV-2018 13:33, (Unconfirmed) No significant change was found Confirmed by KAYCEE ESPARZA (2) on 11/05/2018 1:14:00 PM Referred By: THERESA *R Confirmed By:KAYCEE ESPARZA
[2018-11-05] MEDS ORDERED: Diltiazem 125 MG in Sodium Chloride 0.9% 100 ML IVPB SCH (16:00)
[2018-11-05] MEDS ORDERED: Digoxin 0.5 MG/2 ML AMP SLOW IVP SCH (16:30)
--- NOTE | 2018-11-05 16:34 | PRG ---
DATE OF SERVICE: 11/05/2018 SERVICE: Pulmonary medicine. INTERVAL HISTORY: Overnight, the patient's blood pressure dropped off a little bit. He ended up responding to a liter of fluid. He cannot provide any additional elements of the history and he remains encephalopathic. He is not requiring much in way of sedation to stay comfortable. He is tolerating dialysis okay. PHYSICAL EXAMINATION: VITAL SIGNS: Afebrile. Pulse 85, blood pressure 91/48, respirations 26, saturation 97% on 21% FiO2 and a PEEP of 5. GENERAL: The patient is intubated. He is requiring a little bit of sedation, but mostly just simply encephalopathic. HEENT: Normocephalic and atraumatic. Sclerae white. Conjunctivae pink. Oral mucosa is moist without lesions. LUNGS: Decent air entry. There is some rhonchi present, but no crackles or wheezing. HEART: Normal rate, regular. ABDOMEN: Completely distended. Bowel sounds are hypoactive. I do not hear anything it is high pitched. There is no rebound or guarding appreciated, though he does not interact much with his environment. MUSCULOSKELETAL: No cyanosis or clubbing. Skin tenting is present. No pitting. NEUROLOGIC: He does not withdraw from noxious stimuli in upper or lower extremities. He does not have any facial grimace with abdominal palpation. He does have sluggishly reactive pupils bilaterally. He also has a good cough, gag, does over breathe in ventilator comfortably. LABORATORY DATA: WBC 8.4, hemoglobin 11.8, platelets 149,000. INR 1.2. PH 7.36, pCO2 of 32, PO2 of 87. TSH is unremarkable. Procalcitonin is 9 and downtrending to 6.6. Ammonia 153 and gently up trending, but better than original. Lactate is up trending to 6.9. Bicarbonate 13, anion gap 24. Sodium 128. Blood cultures x2 , E coli, Campylobacter, and stool culture unremarkable to date. Body fluid culture of the peritoneal wash is negative. IMAGING: Abdominal x-ray demonstrates minimal reduction in the degree of small bowel distention. ASSESSMENT: 1. Metabolic encephalopathy, quite severe. 2. Respiratory failure secondary to inability to protect airway. 3. End-stage renal disease, on peritoneal dialysis. 4. Severe sepsis. 5. Ileus. DISCUSSION AND PLAN: I will get a chest x-ray tomorrow morning and repeat a lactate. We will also repeat CBC and basic metabolic profile. Hopefully, once his acidosis is cleared, and he clears his sepsis profile, he will start to wake up more comfortably. Pulmonary/Critical Care will continue to follow closely. Critical care time: 30 minutes. Job ID: [id number] MTDD
[2018-11-05] MEDS: Amiodarone 450 MG in Dextrose 5% in Water 250 ML IVPB SCH ×2 (16:40→22:35)
--- NOTE | 2018-11-05 16:41 | PRG ---
DATE OF SERVICE: 11/05/2018 SUBJECTIVE: Mr. Moore remains obtunded on the ventilator in the ICU. OBJECTIVE: VITAL SIGNS: Temperature is 99.3, pulse 116, blood pressure 101/78. GENERAL: He is in no acute distress. He is obtunded on the vent. LUNGS: Clear to auscultation bilaterally. HEART: Tachycardic, S1 and S2. ABDOMEN: Mildly distended with ascites. He is undergoing peritoneal dialysis now. EXTREMITIES: 1+ pitting lower extremity and upper extremity edema. LABORATORY DATA: Hemoglobin is 11.8, white blood cell count 8.4, ammonia 153 today. Creatinine 9.25. IMPRESSION: 1. Hepatic encephalopathy. He received lactulose enema last night. However, his ammonia has increased slightly. We will repeat lactulose enemas. Once it is confirmed, he can take oral lactulose and will give it orally. 2. Question of bowel obstruction. Abdominal x-ray shows significant small bowel dilation without colonic dilation. There was no output from his NG tube, however. I will request a CT of the abdomen and pelvis with contrast at this point. 3. Cirrhosis and chronic hepatitis C. 4. End-stage renal disease, on peritoneal dialysis. RECOMMENDATIONS: 1. Lactulose enemas. 2. CT scan of the abdomen and pelvis. Job ID: [id number]
[2018-11-05 16:46] LABS: Troponin I 0.495 ng/mL (< 0.028)
--- NOTE | 2018-11-05 20:58 | CT ---
CT ABDOMEN AND PELVIS WITH IV CONTRAST: 11/05/18 HISTORY: Abdominal radiograph suggests bowel obstruction. The patient has abdominal distention. COMPARISON: CT examinations on 06/23/15 and 12/14/16. FINDINGS: Trace bilateral pleural effusions with consolidation are present in each lung base probably related t o atelectasis. The heart is enlarged. Vascular calcifications are seen in the abdominal aorta and involving the iliac arteries. A nasogastric tube is noted in place which is coiled within the stomach with the tip in the gastric f undus. There is distention of the stomach with contrast and gas as well as particulate matter within the stomach. There are multiple fluid filled dilated loops of small bowel seen measuring up to 4.1 c m in diameter. An exact transition point is not visualized, but there are more normal caliber loops o f distal ileum which are predominantly gas filled. There is a loop of small bowel in the pelvis which demonstrates bowel wall thickening. There is mild mesenteric edema as well as small amount of intraperitoneal free fluid in the pelvis. T he patient does have peritoneal dialysis catheter in place with distal portion in the pelvis. No free intraperitoneal gas is appreciated. There is a nodular peripheral contour of the liver suggesting cirrhosis. There is an irregular low de nsity area within the dome of the liver which may represent an area of scarring. There was an adjacen t low density lesion on prior exam which is less well delineated or from the irregular hypo dense area in the dome of the liver on today's exam. There is mild increased density within the gallbladder lumen which could be related to sludge. The spleen, pancreas, and bilateral adrenal glands demonstrate a normal CT appearance. Hypodense bilateral renal lesions are again seen, also seen on prior studies suggesting cysts. Periph erally calcified left renal artery aneurysm is again present. The kidneys are small in size bilateral ly with evidence of renal cortical thinning. Urinary bladder is incompletely distended. Colon is mostly decompressed although portions of the transverse colon do appear thickened, but this is probably related to the incomplete distention. The portal vein is patent. IMPRESSION: 1. Dilated loops of small bowel. There are more normal caliber loops of distal small bowel which are distended with gas. An exact transition point is unable to be delineated. There is focal mild jorge luis wel wall thickening involving a loop of small bowel within the right pelvis, but this does not repres ent site of transition. This could be related to focal area of enteritis. Dilated loops of small bow el may be related to either a partial small bowel obstruction or ileus. 2. Trace bilateral pleural effusions and atelectasis at each lung base. 3. Cardiomegaly. 4. Evidence of cirrhosis. 5. Increased density in the gallbladder likely attributable to sludge. 6. Irregular hypodensity areas in the dome of the liver slightly larger in size compared to the prior study. There is a more defined hypodense mass-like lesion in the region of the dome of the live r on prior studies which is less well delineated this exam. 7. Bilateral renal cysts and peripherally calcified left renal artery aneurysm measuring 1.7 cm. This is similar to recent study on 12/14/16. POS: PRAFUL
[2018-11-05] MEDS ORDERED: Sodium Chloride 0.9% 250 ML IVPB SCH (23:45)
[2018-11-06 03:50] LABS: #Basophils 0.1 thou/uL (0.0-0.2); #Lymphocytes 0.4 thou/uL (1.20-3.40); #Monocytes 0.5 thou/uL (0.11-0.59); #Neutrophils 9.3 thou/uL (1.40-6.50); %Lymphocytes 3.6 % (21.0-51.0); %Monocytes 4.8 % (0.0-10.0); %Neutrophils 90.6 % (42.0-75.0); Hemoglobin 12.1 g/dL (14.0-18.0); Mean Corpuscular Hemoglobin 32.9 pg (27.0-31.0); Mean Corpuscular Volume 96.9 fL (78.0-98.0); Mean Platelet Volume 9.3 fL (7.4-10.4); Platelet Count 175 thou/uL (130-400); RBC Distribution Width 11.8 % (11.5-14.5); Red Blood Cell (RBC) Count 3.68 mill/uL (4.70-6.10); White Blood Cell (WBC) Count 10.3 thou/uL (4.8-10.8)
[2018-11-06 04:07] LABS: Lactic Acid 6.8 mmol/L (0.5-2.2)
[2018-11-06 04:11] LABS: ALT (SGPT) 17 U/L (8-55); AST (SGOT) 28 U/L (5-34); Alkaline Phosphatase 118 U/L (40-150); Anion Gap 23 mmol/L (10-20); BUN (Urea Nitrogen) 50 mg/dL (8.4-25.7); Bilirubin, Total 1.3 mg/dL (0.2-1.2); Calc. Creatinine Clearance 13 mL/min (70-130); Calcium 8.1 mg/dL (7.8-10.44); Carbon Dioxide 13 mmol/L (23-31); Chloride 96 mmol/L (98-107); Estimated GFR-MDRD 8; Glucose 198 mg/dL (80-115); Potassium 3.5 mmol/L (3.5-5.1); Sodium 128 mmol/L (136-145)
[2018-11-06] MEDS: Piperacillin/Tazobactam 2.25 GM in Sodium Chloride 0.9% 100 ML IVPB SCH ×3 (05:00→21:50)
[2018-11-06 06:31] LABS: Actual Bicarbonate (HCO3a) 15.3 mEq/L (22-28); Base Excess (BEa) -5.9 mEq/L (-2.0 to +3.0); Carboxyhemoglobin (COHb) 0.8 gm% (0.0-3.0); Hemoglobin (Hb) 11.9 g/dL (14.0-18.0); O2 Tension (PaO2) 77.5 mmHg (> 80.0); Potassium - ABG Lab 3.34 mmol/L (3.70-5.30)
[2018-11-06 06:32] LABS: Puncture Site RRA
--- NOTE | 2018-11-06 06:57 | PDOC.FM ---
- Subjective Subjective: intubated, requiring minimal to no sedation, no events reported overnight - Objective Vital Signs & Weight: Vital Signs (12 hours) Temp Pulse Resp Pulse Ox 11/06/18 06:00 16 11/06/18 03:50 16 11/06/18 02:34 106 H 11/06/18 02:00 17 11/06/18 00:32 88 11/06/18 00:31 87 17 94 L 11/06/18 00:00 98.6 F 16 11/05/18 22:00 17 11/05/18 20:00 94 L 11/05/18 19:44 14 11/05/18 19:24 102 H 18 100 11/05/18 19:00 98.1 F Weight Admit Weight 75.75 kg Weight 85 g Most Recent Monitor Data Heart Rate from ECG 92 NIBP 99/63 NIBP BP-Mean 75 Respiration from ECG 17 SpO2 93 I&O: 11/04/18 11/05/18 11/06/18 06:59 06:59 06:59 Intake Total 120 2300 6221.8 Output Total 0 0 Balance 120 2300 6221.8 Result Diagrams: 11/06/18 03:02 11/06/18 03:30 Phys Exam - Physical Examination Constitutional: NAD HEENT: moist MMs Neck: no JVD Respiratory: no wheezing poor airmovement significant blowing murmur distended, tense with minimal bowel sounds Musculoskeletal: pulses present Skin: no rash Dx/Plan (1) Hepatic encephalopathy Code(s): K72.90 - HEPATIC FAILURE, UNSPECIFIED WITHOUT COMA Status: Acute (2) Hyperammonemia Code(s): E72.20 - DISORDER OF UREA CYCLE METABOLISM, UNSPECIFIED Status: Acute (3) Atrial fibrillation with normal ventricular rate Code(s): I48.91 - UNSPECIFIED ATRIAL FIBRILLATION Status: Acute (4) Cirrhosis of liver with ascites Code(s): K74.60 - UNSPECIFIED CIRRHOSIS OF LIVER Status: Acute (5) Congestive heart failure Code(s): I50.9 - HEART FAILURE, UNSPECIFIED Status: Acute (6) Encephalopathy acute Code(s): G93.40 - ENCEPHALOPATHY, UNSPECIFIED Status: Acute (7) Hyperglycemia Code(s): R73.9 - HYPERGLYCEMIA, UNSPECIFIED Status: Acute (8) Hyponatremia Code(s): E87.1 - HYPO-OSMOLALITY AND HYPONATREMIA Status: Acute (9) Lactic acid acidosis Code(s): E87.2 - ACIDOSIS Status: Acute (10) Leukocytosis, unspecified Code(s): D72.829 - ELEVATED WHITE BLOOD CELL COUNT, UNSPECIFIED Status: Acute (11) Diabetes Mellitus Type 2 in Nonobese Code(s): E11.9 - TYPE 2 DIABETES MELLITUS WITHOUT COMPLICATIONS Status: Chronic (12) ESRD on peritoneal dialysis Code(s): N18.6 - END STAGE RENAL DISEASE; Z99.2 - DEPENDENCE ON RENAL DIALYSIS Status: Chronic - Plan Plan: Hepatic encephalopathy - Ammonia remains elevated LFTs and Coag WNL. - Currently intubated and requiring minimal sedation - GI consulted, appreciate recs - consider CT ab/pel today acid/base disturbance - Anion gap metabolic acidosis with respiratory alkalosis - Nephrology consulted, appreciate recs - pulm consulted, appreciate recs - decrease RR, increase TV- repeat ABG - peritoneal dialysis daily Small bowel ileus - NG to low-intermediate wall suction. Lactulose enemas - 0 output from NG. - miralax and gentle hydration, will beg lactulose per NG when bowel fxn resumes - consider reglan and senna today septic shock - hypotense, elevated WBC, tachycardia, suspect possible abdominal source - Leukocytosis/procal downtrending since starting zosyn (11/04) - Peritoneal fluid analysis without WBC or bacteria. cx NGTD - CXR without acute consolidation. - consider CT ab/pel today Hyperglycemia, DMII - Continue SS with 86u Lantus and hypoglycemic protocol. Hyperphosphatemia - dialysis as above Diarrhea - KUB demonstrated small bowel obstruction, diarrhea likely 2/2 encopresis. On miralax and lactulose. - Stool campy, e.coli negative. ESRD on PD, missed 5 days prior to admission - Dr. Alexis consulted, continue perironteal dialysis with monitoring of lytes, appreciate recs Cirrhosis - see above - h/o of Hep C, treated, Hep C RNA pending. - RUQ US demonstrated cirrhosis, mild splenomegaly, and BL renal cysts HFpEF - Home meds currently held - repeat echo MDD - hold until NPO dc Code: DNAR - cross-coverage team spoke with daughter and and confirmed code status Prophylaxis: Heparin Diet: NPO Fluids:100 NS abx: zosyn Disposition: Continue dialysis, abx, and supportive care. further eval/tx today Addendum - Attending - Attending Attestation Date/Time: 11/06/18 1040 I personally evaluated the patient and discussed the management with Dr. Umanzor. I agree with the History, Examination, Assessment and Plan documented above with any addition or exceptions noted below. Patient is very critically ill. Continues to be on vent with minimal sedation due to his encephalopathy. Need lactulose but this is currently difficult in the setting of ileus versus SBO. Not holding lactulose enemas well. Continues on PD for ESRD. Will recheck coags to evaluate liver function. Continues to have AG metabolic acidosis with elevated lactate, though some of this is from his chronic liver dysfunction. Continue IVF. He continues on IV abx. Awaiting GI recs and Pulm recs. Poor prognosis anticipated. Continue Amiodarone for Afib breakthrough yesterday.
[2018-11-06] MEDS: methylPREDNISolone Sod Succ 40 MG VIAL IVP SCH ×2 (07:37→21:54)
[2018-11-06] MEDS: Heparin 5,000 UNITS/ML VIAL SC SCH ×3 (07:38→21:32)
[2018-11-06] MEDS: Polyethylene Glycol 3350 17 GM Packet PER TUBE SCH (07:46)
--- NOTE | 2018-11-06 08:18 | RAD ---
Chest one view HISTORY: Dyspnea. Follow-up. COMPARISON: 11/04/2018. FINDINGS: Cardiac silhouette is magnified by projection. Pulmonary vasculature accentuated by shallow inspiration. Mild atelectasis now evident at the lung bases. Mediastinum midline. Endotracheal catheter and nasogastric tube remain in good radiographic position. No evidence of pneumothorax. IMPRESSION: Developing mild bibasilar atelectasis. Otherwise stable radiographic appearance of the ch est.
[2018-11-06] MEDS ORDERED: Albumin 25% 25 GM/100 ML BOT IVPB ONE (08:45)
[2018-11-06] MEDS: Albumin 25% 25 GM/100 ML BOT IVPB SCH ×3 (09:13→21:50)
[2018-11-06] MEDS: Insulin Glargine 86 UNITS in Pre-Filled Syringe 1 EACH SC SCH (09:34)
--- NOTE | 2018-11-06 09:38 | PRG ---
DATE OF SERVICE: 11/06/2018 SUBJECTIVE: Mr. Moore is a 68-year-old [place] male with ESRD, followed up by the [facility] for his maintenance peritoneal dialysis. He has been transferred to the ICU due to mental status change. In addition, he had a KUB suggested small-bowel obstruction with this patient. He had a CAT scan of the abdomen done yesterday, which showed a possible bowel obstruction versus ileus. His blood pressure has been running on the low side. For that reason, we have been given him volume repletion. Please note, I minimizing fluid removal with the peritoneal dialysis and currently, we are only using 1.5% PD solution. No acute events noted. Please note, in the interim, he has been prophylactically intubated. OBJECTIVE: VITAL SIGNS: Blood pressure 103/60, heart rate 91, respiratory rate 17, and pulse ox 100%. GENERAL: Noted to be arousable, but not following commands. He does have an occasional blank stare. HEENT: He has pinkish conjunctivae. Anicteric sclerae. NECK: No neck mass. No carotid bruits. No JVD. CHEST: No deformities. LUNGS: Clear breath sounds. No wheezing. No crackles. HEART: Normal sinus rhythm. No murmurs. No gallops. No rubs. ABDOMEN: Globular, soft, and nontender. No masses. Positive for PD catheter. Decreased bowel sounds. EXTREMITIES: No edema. MEDICATIONS: Medications of November 06, 2018, were reviewed. LABORATORY DATA: Laboratories of November 06, 2018: White count 10.3, hemoglobin 12.1. Sodium 128, potassium 3.5, chloride 98, carbon dioxide 13, BUN 50, creatinine 6.86, glucose 198, lactic acid 6.8, and albumin is 2.0. ASSESSMENT AND PLAN: 1. Mental status change - consider the possibility of a metabolic encephalopathy. Previous CT scan of the head on admission was negative. 2. End-stage renal disease, stable. We will continue current continuous cycler-assisted peritoneal dialysis regimen. I have extended his dialysis time in the last 2 days due to the possibility that mentation changes could be secondary from uremia. 3. Small-bowel obstruction? A CT scan of the abdomen and pelvis showed dilated loops of small bowel. Dilated loops of small bowel may be related either to a partial small-bowel obstruction versus ileus. Please note, this patient had an upper GI endoscopy last week, which essentially was said to be within normal. 4. Hypotension - due to the low albumin, I will start this patient on albumin infusion of 25 g IV q.6. He is currently on normal saline at 100 mL/h. Job ID: [id number]
--- NOTE | 2018-11-06 11:25 | PRG ---
DATE OF SERVICE: 11/06/2018 SERVICE: Pulmonary Medicine. INTERVAL HISTORY: The patient is doing fine from respiratory standpoint. Mentation [place], he is still encephalopathic. His blood pressures have firmed up a little bit. He is tolerating dialysis fairly well. Otherwise, there has been no interval change to his condition. PHYSICAL EXAMINATION: VITAL SIGNS: Afebrile, pulse 90, blood pressure 101/55, respirations 17, saturation 100% on 21% FiO2 and a PEEP of 3. GENERAL: The patient is on absolutely no sedation, but encephalopathic. HEENT: Normocephalic and atraumatic. Sclerae are white. Conjunctivae are pink. Oral mucosa is moist without lesions. LUNGS: Decent air entry. There are no crackles or rhonchi present. HEART: Normal rate, regular. ABDOMEN: Soft. It is distended, but much softer today. There is no rebound or guarding. Bowel sounds are much more active. There is nothing that even approaches a high pitch sound. MUSCULOSKELETAL: No cyanosis or clubbing. No pitting. There is no lower extremity edema. The tenting is a little better. NEUROLOGIC: Grossly nonfocal. His pupillary response is much brisker today. He is comfortably overbreathing the ventilator, and he is starting to demonstrate a little bit of withdrawn and grimace to noxious stimuli. LABORATORY DATA: WBC 10.3, hemoglobin 12.1, platelets 175,000 and stable. INR 1.2. A pH 7.5, pCO2 of 20, pO2 of 77. Sodium 128 and stable, chloride 96, creatinine 6.8 and steadily downtrending. Lactate remains elevated at 6.8, total bilirubin 1.3. Liver function studies are otherwise unremarkable. Ammonia is uptrending to 170. Blood cultures x2 are negative. Body fluid culture is negative to date. IMAGING STUDIES: Chest x-ray demonstrates endotracheal tube is in good position. There are pretty low lung volumes. Bibasilar atelectasis is appreciated. An enteric catheter courses below the level of the diaphragm. The stomach is now decompressed. ASSESSMENT: 1. Respiratory failure secondary to inability to protect airway, stable. 2. Metabolic encephalopathy, with subtle improvement. 3. End-stage renal disease, on peritoneal dialysis. 4. Severe sepsis. 5. Ileus, improving. DISCUSSION AND PLAN: The output from the NG tube has been essentially minimal. As such, we can start giving him lactulose from up top. I will discontinue the p.r. lactulose. Once he starts having bowel movements, we will titrate to 2 to 3 bowel movements on a daily basis. At this point, his mentation prevents us from extubating him. We will continue our empiric antibiotics. I am not concerned in the least about this lactate. He actually has a respiratory alkalosis and not an acidosis. I will get rid of some support on the ventilator, but truth to be told, I am already giving him a very small amount of support as it is. CRITICAL CARE TIME: 30 minutes. Job ID: [id number]
[2018-11-06 11:26] LABS: Actual Bicarbonate (HCO3a) 14.4 mEq/L (22-28); Base Excess (BEa) -7.4 mEq/L (-2.0 to +3.0); Carboxyhemoglobin (COHb) 0.9 gm% (0.0-3.0); Hemoglobin (Hb) 10.8 g/dL (14.0-18.0); O2 Tension (PaO2) 75.4 mmHg (> 80.0); Potassium - ABG Lab 3.41 mmol/L (3.70-5.30); pH, Arterial 7.47 (7.35-7.45)
[2018-11-06 11:28] LABS: CO2 Tension 20.3 mmHg (35.0-45.0); Puncture Site RRA
[2018-11-06 11:29] LABS: ALV-art Gradient 48.955 (0-20)
[2018-11-06] MEDS: Insulin Regular 300 UNITS/3 ML VIAL SC PRN (11:55)
[2018-11-06] MEDS: Sodium Chloride 0.9% 1,000 ML IV SCH (12:11)
--- NOTE | 2018-11-06 14:55 | RAD ---
Exam: Abdomen 2 views: HISTORY: Follow-up small bowel obstruction versus ileus COMPARISON: 11/05/2018 FINDINGS: NG tube in place. There are persistently dilated small bowel loops. There is a peritoneal dialysis ca theter which is coiled in the pelvis. These loops may be very slightly less distended than on the 11/04/2018 study but there is little overall change. Essentially no colonic gas is seen on this study. There does appear to be some residual dilute contrast within dilated small bowel loops. No evidence for free intraperitoneal air. IMPRESSION: Persistently abnormally dilated small bowel loops. Bowel obstruction versus severe ileus remains the concern. Consider follow-up Gastrografin small bowel study for further assessment which would help determine if there is indeed a high-grade bowel obstruction.
[2018-11-06] MEDS: Amiodarone 450 MG in Dextrose 5% in Water 250 ML IVPB SCH (15:25)
[2018-11-06] MEDS: Ondansetron PF 4 MG/2 ML Vial IVP PRN (20:40)
--- NOTE | 2018-11-06 20:46 | PRG ---
DATE OF SERVICE: 11/06/2018 SUBJECTIVE: Mr. Moore remains obtunded on the ventilator. He has had no stool output spontaneously today. His NG tube was repositioned. He had immediately 700 mL of thick output from his OG tube. OBJECTIVE: VITAL SIGNS: Temperature 98.4, pulse 96, and blood pressure 135/ 70. GENERAL: He is obtunded on the ventilator. LUNGS: Clear to auscultation bilaterally. HEART: Regular rate and rhythm with 3/6 systolic murmur at left lower sternal border and apex. ABDOMEN: Distended. Bowel sounds are present. EXTREMITIES: 1+ lower extremity edema. LABORATORY DATA: White blood cell count 10.3, hemoglobin 12.1, platelets 175. INR 1.2. Creatinine 6.86. Bilirubin 1.3, AST 28, ALT 17, alkaline phosphatase 118. Ammonia was 170 today. Albumin 2.0. His lactate was elevated. IMPRESSION: 1. Hepatic encephalopathy. His ammonia is continued to increase. He has been unable to take oral lactulose now with ileus versus obstructive process in his small bowel. He is having significant output from his OG now. We will continue with rectal lactulose at this point. 2. Cirrhosis secondary to chronic hepatitis C. 3. Recent Clostridium difficile infection. We will request a Clostridium difficile sample. 4. End-stage renal disease, on peritoneal dialysis. 5. Ileus. Possible SBO by CT with dilated small bowel more proximally and decompressed distal small bowel and colon. Now with significant OG tube output. Elevated lactate noted. He has active bowel sounds. Potential for mesenteric ischemia noted. RECOMMENDATIONS: 1. Now that he is having significant output from his OG tube, we will hold off the oral lactulose and continue with enema administration. 2. Await stool C. diff. Job ID: [id number] [facility]
[2018-11-06] MEDS ORDERED: Sodium Chloride 0.9% (PF) 10 ML VIAL FS PRN (21:43)
[2018-11-06] MEDS ORDERED: Octreotide Acetate 50 MCG/ML AMP SLOW IVP SCH (21:45)
[2018-11-06] MEDS ORDERED: Pantoprazole 40 MG VIAL IVP SCH (21:45)
[2018-11-06 22:33] LABS: Band 24 % (5-11); Hemoglobin 9.5 g/dL (14.0-18.0); Lymphocytes 9 % (21-51); MDiff Complete? YES; Mean Corpuscular HGB CONC 34.2 g/dL (32.0-36.0); Mean Corpuscular Hemoglobin 32.8 pg (27.0-31.0); Mean Corpuscular Volume 95.9 fL (78.0-98.0); Mean Platelet Volume 9.3 fL (7.4-10.4); Monocytes 7 % (0-10); Neutrophil 60 % (42-75); Platelet Count 182 thou/uL (130-400); RBC Distribution Width 11.9 % (11.5-14.5); White Blood Cell (WBC) Count 14.3 thou/uL (4.8-10.8)
[2018-11-06] MEDS: Pantoprazole 80 MG, Admixture Fee 1 EACH in Sodium Chloride 0.9% 100 ML IVPB SCH (23:00)
[2018-11-06] MEDS: Octreotide Acetate 1,250 MCG in Sodium Chloride 0.9% 250 ML 250 ML IVPB SCH (23:00)
[2018-11-06] MEDS ORDERED: Ethanolamine Oleate 5% 2 ml Ampule ONE (23:09)
[2018-11-06] MEDS ORDERED: EPINEPHrine 1 MG/10 ML Abboject SYRINGE ONE (23:10)
[2018-11-07] MEDS ORDERED: Metoclopramide HCl 10 MG/2 ML VIAL IVP SCH ×2 (01:00→09:15)
[2018-11-07] MEDS: Lactulose 10 GM/15 ML Oral Solution PR SCH ×2 (01:11→01:24)
[2018-11-07] MEDS: Insulin Regular 300 UNITS/3 ML VIAL SC PRN ×2 (01:43→05:12)
[2018-11-07] MEDS ORDERED: Sodium Chloride 0.9% 500 ML IV SCH (02:00)
[2018-11-07] MEDS: Sodium Chloride 0.9% 1,000 ML IV SCH (02:44)
[2018-11-07] MEDS: Albumin 25% 25 GM/100 ML BOT IVPB SCH (03:00)
--- NOTE | 2018-11-07 03:27 | OP ---
DATE OF PROCEDURE: 11/07/2018 PROCEDURE: EGD (diagnostic). INDICATION FOR PROCEDURE: Hematemesis, cirrhosis of the liver. DESCRIPTION OF PROCEDURE: After the risks and benefits of the procedure were explained to the patient's surrogate/medical power of civil rights attorney (the patient's daughter) including risks of bleeding, infection, perforation, reactions to anesthesia, aspiration, and/or pain, informed consent was obtained. The patient was kept in the ICU with the procedure done at bedside. No additional sedation medications were given the patient's hypotension, but was comfortable throughout the procedure with no signs of agitation. Once the patient was placed in the proper position, the therapeutic gastroscope was introduced into the mouth with intubation of the esophagus, stomach, and the proximal small intestines with the findings listed below. The patient tolerated the procedure well with no immediate perioperative complications. Upon conclusion of the procedure, all equipment was removed from the patient and the patient and the patient was clean/changed while in the ICU. FINDINGS: Esophagus: Normal-appearing mucosa was seen in the proximal esophagus, albeit with an increased power of the mucosa itself. However, a large amount of blood and blood clot were seen in the mid and distal esophagus, which completely obstructed adequate visualization of both the proximal and distal esophagus. Aggressive irrigation and suctioning were employed with clearing of some of the blood clot, but inadequate views of the distal esophagus were still receive. At this point, I cannot rule out the presence of possible esophageal varices; however, there was no evidence of active bleeding seen during this examination within the esophagus. Stomach: A large amount of retained blood was seen in the gastric fundus, body, greater curvature, and antrum, which interfered with visualization of the gastric mucosa despite attempts at aggressive irrigation and suctioning, it could not be cleared due to clogging of the scope, the mucosa visualized (approximately 10-20 percent). There was no evidence of erosions, ulcerations, mass, lesions, or active/recent bleeding. Adequate visualization of the GE junction on retroflexion could not be performed due to the retained blood as well. However, there was no evidence of active bleeding seen during this portion of the examination. Duodenum: Normal-appearing mucosa was seen in both the duodenal bulb and second portion of the duodenum, although there was a larger amount of retained blood within these areas as well that was amenable to irrigation and suctioning. The mucosa seen, there was no evidence of erosions, ulcerations, mass, lesions, or active bleeding. IMPRESSION: 1. A large amount of retained blood both within the stomach and the distal esophagus significantly interfering with visualization of the upper gastrointestinal mucosa. A distal esophageal bleed or proximal stomach bleed cannot be ruled out at this time. 2. No active bleeding was seen during this examination. RECOMMENDATIONS: 1. We would continue to trend H and H every 6 hours and transfuse as necessary to maintain an H and H of 7/21. 2. Continue to monitor clinically for signs of active GI bleeding. 3. We would continue PPI and octreotide drips given the GI bleed and history of cirrhosis. 4. We would continue with antibiotics as you are doing in light of GI bleeding with a cirrhotic patient. 5. We would administer metoclopramide 10 mg IV x1 in an attempt to clear the stomach of blood and blood clot with plans to repeat EGD later on today. 6. We would continue the patient on n.p.o. status. 7. We would avoid any anticoagulation at this time in light of active GI bleed. 8. We will continue to follow. Please call with any questions. Job ID: [id number]
--- NOTE | 2018-11-07 03:31 | PDOC.EVN ---
Event Note - Event Note Event Note: Paged by nurse regarding Mr. Moore. He was evaluated by GI at midnight for hematemesis and hypotension. We were paged for concern regarding his blood pressures and request for a central line as the pt is a hard stick, pmhx of ESRD , cirrhosis. At bedside pt started to seize. Pt received 2mg IV ativan. Additionally pt received 500ml of NS for bp's 90/70s. Called Dr. Comer in the ER for assistance/placement of central line. Pt tolerated the procedure well. If pt continues to seize, will consider a head CT. We ordered labs to check pt' s electrolytes. Pt also has a cbc coming back at 0400, last hb 9.5 and prior was 12.1. Will monitor closely. Vitals after procedure: HR 101, BP 107/68 O2sat 92% on vent RR 22, afebrile
[2018-11-07 04:10] LABS: INR-International Normal Ratio 1.8; Prothrombin Time 20.9 SEC (12.0-14.7)
[2018-11-07 04:25] LABS: ALT (SGPT) 26 U/L (8-55); AST (SGOT) 57 U/L (5-34); Albumin 2.7 g/dL (3.4-4.8); Alkaline Phosphatase 84 U/L (40-150); Anion Gap 31 mmol/L (10-20); BUN (Urea Nitrogen) 51 mg/dL (8.4-25.7); Bilirubin, Total 1.4 mg/dL (0.2-1.2); Calc. Creatinine Clearance 0 mL/min (70-130); Calcium 8.3 mg/dL (7.8-10.44); Chloride 96 mmol/L (98-107); Estimated GFR-MDRD 8; Globulin 2.8 g/dL (2.4-3.5); Glucose 307 mg/dL (80-115); Protein, Total 5.5 g/dL (5.8-8.1); Sodium 131 mmol/L (136-145)
[2018-11-07 04:26] LABS: Lactic Acid 13.3 mmol/L (0.5-2.2)
[2018-11-07 04:31] LABS: Carbon Dioxide 8 mmol/L (23-31); Phosphorus 9.9 mg/dL (2.3-4.7)
[2018-11-07 05:06] LABS: Band 26 % (5-11); Hemoglobin 8.7 g/dL (14.0-18.0); Lymphocytes 3 % (21-51); MDiff Complete? YES; Mean Corpuscular HGB CONC 33.1 g/dL (32.0-36.0); Mean Corpuscular Hemoglobin 32.9 pg (27.0-31.0); Mean Corpuscular Volume 99.3 fL (78.0-98.0); Mean Platelet Volume 9.6 fL (7.4-10.4); Monocytes 3 % (0-10); Neutrophil 68 % (42-75); Platelet Count 218 thou/uL (130-400); RBC Distribution Width 12.2 % (11.5-14.5); Red Blood Cell (RBC) Count 2.63 mill/uL (4.70-6.10); White Blood Cell (WBC) Count 17.2 thou/uL (4.8-10.8)
[2018-11-07] MEDS: Piperacillin/Tazobactam 2.25 GM in Sodium Chloride 0.9% 100 ML IVPB SCH ×3 (05:12→20:11)
[2018-11-07] MEDS: Pantoprazole 80 MG, Admixture Fee 1 EACH in Sodium Chloride 0.9% 100 ML IVPB SCH ×2 (06:39→16:24)
[2018-11-07] MEDS: Amiodarone 450 MG in Dextrose 5% in Water 250 ML IVPB SCH ×2 (06:39→20:12)
--- NOTE | 2018-11-07 06:45 | PDOC.FM ---
Addendum entered and electronically signed by Archei Umanzor DO 11/07/18 10:24: Called daughter (documented MPOA) with update of clinical status. She stated her father should be full code with a re-evaluation after EGD. This was confirmed by a conversation last night with Dr. Nick in which the daughter informed him she desired "full court press" for her fathers care. Original Note: - Subjective Subjective: pt currently intubated without sedation, he had an eventful night. hematemesis around midnight, bedside EGD did not reveal a source, but a large amount of old blood. developed hypotension and seizures subsequently. responded to fluid bolus and ativan. - Objective Vital Signs & Weight: Vital Signs (12 hours) Temp Pulse Resp BP Pulse Ox 11/07/18 06:00 22 H 11/07/18 04:00 22 H 11/07/18 03:00 98.3 F 11/07/18 02:30 96 104/61 11/07/18 02:00 22 H 11/07/18 01:42 23 H 100 11/07/18 00:00 16 11/06/18 23:00 98.9 F 11/06/18 22:13 89 11/06/18 22:00 16 11/06/18 20:00 18 95 11/06/18 19:00 98.4 F Weight Admit Weight 75.75 kg Weight 86.2 kg Most Recent Monitor Data Heart Rate from ECG 113 NIBP 129/87 NIBP BP-Mean 101 Respiration from ECG 21 SpO2 100 I&O: 11/05/18 11/06/18 11/07/18 06:59 06:59 06:59 Intake Total 2300 6221.8 3844.7 Output Total 0 0 1280 Balance 2300 6221.8 2564.7 Result Diagrams: 11/07/18 03:50 11/07/18 03:50 Phys Exam - Physical Examination Constitutional: NAD HEENT: moist MMs Neck: supple poor air movement, crackles Cardiovascular: RRR loud GARRETT distended, minimal bowel sounds Musculoskeletal: pulses present Skin: no rash Dx/Plan (1) Hepatic encephalopathy Code(s): K72.90 - HEPATIC FAILURE, UNSPECIFIED WITHOUT COMA Status: Acute (2) Hyperammonemia Code(s): E72.20 - DISORDER OF UREA CYCLE METABOLISM, UNSPECIFIED Status: Acute (3) Atrial fibrillation with normal ventricular rate Code(s): I48.91 - UNSPECIFIED ATRIAL FIBRILLATION Status: Acute (4) Cirrhosis of liver with ascites Code(s): K74.60 - UNSPECIFIED CIRRHOSIS OF LIVER Status: Acute (5) Congestive heart failure Code(s): I50.9 - HEART FAILURE, UNSPECIFIED Status: Acute (6) Encephalopathy acute Code(s): G93.40 - ENCEPHALOPATHY, UNSPECIFIED Status: Acute (7) Hyperglycemia Code(s): R73.9 - HYPERGLYCEMIA, UNSPECIFIED Status: Acute (8) Hyponatremia Code(s): E87.1 - HYPO-OSMOLALITY AND HYPONATREMIA Status: Acute (9) Lactic acid acidosis Code(s): E87.2 - ACIDOSIS Status: Acute (10) Leukocytosis, unspecified Code(s): D72.829 - ELEVATED WHITE BLOOD CELL COUNT, UNSPECIFIED Status: Acute (11) Diabetes Mellitus Type 2 in Nonobese Code(s): E11.9 - TYPE 2 DIABETES MELLITUS WITHOUT COMPLICATIONS Status: Chronic (12) ESRD on peritoneal dialysis Code(s): N18.6 - END STAGE RENAL DISEASE; Z99.2 - DEPENDENCE ON RENAL DIALYSIS Status: Chronic - Plan Plan: Hepatic encephalopathy - Ammonia remains elevated, coags trending up, ALT/AST near baseline - Currently intubated and requiring no sedation - GI consulted, appreciate recs - UT lactulose not holding well, unable to tolerate NG Acute hematemesis - bedside EGD reveals large amount of blood, without definitive source - octreotide, protonix, repeat EGD today Seizure activity - likely secondary to numerous electrolyte disturbance - ativan prn acid/base disturbance - Anion gap metabolic acidosis with improved respiratory alkalosis - Nephrology consulted, appreciate recs - pulm consulted, appreciate recs - increasing LA - peritoneal dialysis daily Small bowel ileus vs obstruction vs ischemic bowel - NG to low-intermediate wall suction. Lactulose enemas - minimal output from NG. - miralax and gentle hydration, will beg lactulose per NG when bowel fxn resumes - consult surgery, Dr. Ivy septic vs cardiogenic shock - hypotense, elevated WBC, tachycardia, afebrile, CVP wnl - zosyn started (11/04) - Peritoneal fluid analysis without WBC or bacteria. cx NGTD - echo pending - CXR without acute consolidation - 2u blood, levophed Hyperglycemia, DMII - Continue SS with 86u Lantus and hypoglycemic protocol. Hyperphosphatemia - dialysis as above ESRD on PD, missed 5 days prior to admission - Dr. Alexis consulted, continue perironteal dialysis with monitoring of lytes, appreciate recs Cirrhosis - see above - h/o of Hep C, treated, Hep C RNA pending. - RUQ US demonstrated cirrhosis, mild splenomegaly, and BL renal cysts HFpEF - Home meds currently held - repeat echo MDD - hold until NPO dc Code: DNAR - cross-coverage team spoke with daughter and and confirmed code status Prophylaxis: SCD Diet: NPO Fluids:50 NS abx: zosyn Disposition: repeat EGD today, discuss goals of care with family Addendum - Attending - Attending Attestation Date/Time: 11/07/18 1037 I personally evaluated the patient and discussed the management with Dr. Umanzor. I agree with the History, Examination, Assessment and Plan documented above with any addition or exceptions noted below. Patient has deteriorated over the last 24 hours and continues to worsen and is critically ill. He had some GI bleeding overnight and required emergent EGD that showed blood in esophagus and stomach and unable to be cleared. He was transfused and is currently on BP support with PRBC and pressor use. Plan for repeat EGD today. However, his labs are consistent with some gut necrosis that will likely be made worse by the levophed that is currently necessary to keep him alive. Await further recs from GI after repeat scope. He has been deemed a non operative candidate based on general surgery recommendations. His acid base status continues to worsen, likely from his ischemic gut. Continue PD per Nephro , but will inquire as to whether this is satisfactory to help buffer his acidemia. Ammonia level overall stable and patient continues to be encephalopathic. Anticipate this may worsen as his liver function has worsened and also because of the amount of blood currently in his GI tract. He is being supported on ventilator, but he is nearing point that his respiratory system cannot compensate for his metabolic acidosis as his CO2 level is already extremely low. Pulm on board. Await specialist recs, and EGD results. Palliative care on board to discuss goals of care as prognosis at this point is extremely point given his acute illness in the setting of already chronic severe disease.
[2018-11-07 06:59] LABS: Actual Bicarbonate (HCO3a) 7.6 mEq/L (22-28); Base Excess (BEa) -18.4 mEq/L (-2.0 to +3.0); Calcium, Ionized 1.02 mmol/L (1.12-1.30); Carboxyhemoglobin (COHb) 1.5 gm% (0.0-3.0); Hemoglobin (Hb) 8.1 g/dL (14.0-18.0); O2 Tension (PaO2) 80.1 mmHg (> 80.0); Potassium - ABG Lab 3.69 mmol/L (3.70-5.30)
[2018-11-07 07:07] LABS: CO2 Tension 19.3 mmHg (35.0-45.0); Puncture Site LR; pH, Arterial 7.22 (7.35-7.45)
[2018-11-07 07:08] LABS: ALV-art Gradient 45.505 (0-20)
[2018-11-07 07:27] LABS: Magnesium 1.7 mg/dL (1.6-2.6)
[2018-11-07] MEDS ORDERED: Norepinephrine 8 MG/250 ML BAG IVPB PRN (07:45)
--- NOTE | 2018-11-07 07:50 | RAD ---
XR Chest 1 View History: Central line placement Comparison: Radiograph prior day. Findings: Patient is intubated with endotracheal tube tip just below the level of the clavicles. Left subclavian central venous catheter tip sits at the right atrium. Heart size is enlarged. Atelectasis in both lung bases. Developing small effusions. Enteric tube has been removed. No pneumothorax. Radiopaque foreign object, 3 x 5 mm, projects over th e right lateral hemithorax soft tissues. Impression: 1.Progressive volume loss with worsening atelectasis and developing small effusions. 2. Gaseous distention of the stomach.
[2018-11-07] MEDS ORDERED: Norepinephrine 4 MG/4 ML VIAL ONE (07:54)
[2018-11-07] MEDS: Polyethylene Glycol 3350 17 GM Packet PER TUBE SCH (07:56)
[2018-11-07] MEDS: methylPREDNISolone Sod Succ 40 MG VIAL IVP SCH ×2 (07:56→20:12)
[2018-11-07] MEDS ORDERED: Norepinephrine 8 MG in Dextrose 5% in Water 242 ML IVPB PRN (08:01)
[2018-11-07] MEDS: Insulin Glargine 86 UNITS in Pre-Filled Syringe 1 EACH SC SCH (09:42)
--- NOTE | 2018-11-07 10:54 | PRG ---
DATE OF SERVICE: 11/07/2018 SERVICE: Renal Medicine. SUBJECTIVE: Mr. Moore is a 68-year-old [place] male with ESRD and currently on peritoneal dialysis. The patient has remained unimproved in the last several days. His mentation has been grossly affected. He is now intubated. He has persistent acidemia. CAT scan did suggest a small bowel obstruction. The concern now is here whether he may have ischemic bowel to explain this more, the CT scan finding in the persistent acidemia. He was evaluated by Surgery, and Surgery feels that he is not a candidate for any surgical intervention at the present time. He underwent dialysis without any difficulty last night. OBJECTIVE: VITAL SIGNS: Blood pressure 81/50, heart rate 86, respiratory rate 18, and pulse ox 100%. GENERAL: The patient has spontaneous eye opening, but not following commands. He is intubated on ventilator support. SKIN: Adequate turgor. HEENT: He has slightly pale conjunctivae. Anicteric sclerae. NECK: No neck mass. No carotid bruits. No JVD. CHEST: No deformities. LUNGS: Clear breath sounds. HEART: Normal sinus rhythm. No murmurs, no gallops, and no rubs. ABDOMEN: Globular, soft, nontender. Positive for PD catheter. EXTREMITIES: No edema. LABORATORY DATA: Laboratories of November 07, 2018; white count 17.2 and hemoglobin 8.7. Sodium 131, potassium 4, chloride 96, carbon dioxide 8, BUN 51, creatinine 6.96, phosphorus is 9.9, magnesium is 1.7, and albumin 2.7. ASSESSMENT AND PLAN: 1. End-stage renal disease, stable. We will continue current peritoneal dialysis regimen. We are using a 1.5% PD solution due to the low blood pressure. 2. Persistent acidemia-consideration with findings of small bowel obstruction. The possibility of ischemic bowel with this patient or even an infarcted bowel. Surgery is evaluating this patient. The initial feeling is that he is not a surgical candidate. 3. His overall prognosis remains poor. Job ID: [id number]
--- NOTE | 2018-11-07 14:52 | PRG ---
DATE OF SERVICE: 11/07/2018 SERVICE: Pulmonary Medicine. INTERVAL HISTORY: The patient did fairly poorly overnight. He started having bloody secretions coming from the NG tube. He actually underwent an endoscopy procedure. His hemoglobins dropped off over the last 24 hours. He cannot provide additional elements of the history at this point because of his encephalopathy. This seems to be clearing, ever so slightly, but he remains encephalopathic. He is starting to have more withdrawal features and spontaneous movements in the upper and lower extremities. His pressures dropped off a little bit overnight and he developed an increasing acidosis and increasing lactate. Multiple adjustments have been made to the ventilator and ordered to improve support for this patient. PHYSICAL EXAMINATION: VITAL SIGNS: Afebrile; pulse 89; blood pressure 113/63; respirations 17; and saturation 100%, currently on 21% FiO2 and a PEEP of 5. GENERAL: The patient is intubated. He is on no sedation, but remains encephalopathic. HEENT: Normocephalic and atraumatic. Sclerae are white. Conjunctivae are pink. Oral mucosa is moist without lesions. LUNGS: Decent air entry. There is some rhonchi present. No prolonged expiratory phase or wheezing is appreciated. HEART: Normal rate. Regular. ABDOMEN: He has increasing distention of the belly today. Bowel sounds are more hypoactive today. He does not have any significant grimace. There is no evident rebound or guarding present. MUSCULOSKELETAL: No cyanosis or clubbing. Diffuse pitting is now present. NEUROLOGIC: Grossly nonfocal. LABORATORY DATA: WBC 17.2, hemoglobin 8.7, and platelets 218,000. Band count is 26% on top of 68% neutrophils. INR 1.8 and gently up-trending. PH of 7.22, pCO2 of 19.3, pO2 of 80, corresponding to a saturation of 92%. Lactic acid is 13.3 and up-trending. Bilirubin 1.4, and roughly stable, AST and ALT are unremarkable. Ammonia level is downtrending to 123. Phosphorus 9.9, BUN 51, bicarb 8. IMAGING DATA: Chest x-ray demonstrates small bilateral pleural effusions, atelectasis in the bilateral lung chen. There is distention of the stomach once again. ASSESSMENT: 1. Respiratory failure secondary to inability to protect airway. 2. Metabolic encephalopathy with ongoing subtle improvement. 3. End-stage renal disease, on peritoneal dialysis (missed over 5 days because of equipment malfunction prior to presentation). 4. Septic shock secondary to suspected GI source. 5. Acute blood loss anemia secondary to hematemesis, esophagogastroduodenoscopy did not demonstrate adequate visualization, but no active bleeding was identified. 6. Ileus, suspected versus small bowel obstruction. 7. Atrial fibrillation with rapid ventricular response, paroxysmal, returned to sinus rhythm. DISCUSSION AND PLAN: We will continue supportive care through time. This patient is critically ill. We put a central line in, initiated some Levophed. A very small dose is able to maintain his blood pressure. Multiple adjustments have been made to the ventilator in order to take over a little more work of breathing and help him hyperventilate if necessary. At this point, the patient is critically ill. He has multisystem organ dysfunction, and his baseline functional status is quite poor. I am concerned the patient may have an ischemic injury to the bowel, but because of his advanced kidney and liver disease, if he needs a surgery, the procedure may prove fatal. Even under the best of circumstances, his recovery from this point moving forward is going to take several weeks if not months, assuming he will be able to tolerate physical therapy at baseline. We will continue updating the family through time. CRITICAL CARE TIME: 30 minutes. Job ID: [id number] MTDD
--- NOTE | 2018-11-07 16:09 | CON ---
DATE OF CONSULTATION: CHIEF COMPLAINT: Ileus versus obstruction. HISTORY OF PRESENT ILLNESS: This is a 68-year-old male, who was admitted on November 02 with some right-sided abdominal pain. He is on home dialysis, but his machine quit, so he did not get dialysis for over 5 days. He then developed chest pain and had a Code Green on the . He required intubation and mechanical ventilation. He developed a high ammonia level and then he started having nausea and vomiting. An NG tube was placed and then he developed hematemesis. EGD just showed blood, they saw some possible varices. His last bowel movement was yesterday. NG tube last put out 1280 mL, but the NG was removed as it was probably the source of bleeding on the varices. PAST MEDICAL HISTORY: Significant for diabetes, end-stage renal, hypertension, hyperlipidemia, cardiac disease, esophageal varices, cirrhosis, PTSD with encephalopathy. PAST SURGICAL HISTORY: Peritoneal dialysis catheter placement. MEDICATIONS: Include; 1. Amiodarone. 2. Elavil. 3. Atorvastatin. 4. Vitamin D. 5. Gabapentin. 6. Insulin. 7. Melatonin. 8. Mirtazapine. 9. Renvela. 10. Tramadol. FAMILY HISTORY: Noncontributory. SOCIAL HISTORY: He is a former smoker. No alcohol or drugs. PHYSICAL EXAMINATION: VITAL SIGNS: Temperature 98.4, pulse 111, blood pressure 82/47. GENERAL: He is obtunded, not responsive. Sedated on the vent. He has some what appears to be jaundice. LUNGS: Clear. ABDOMEN: Distended. Rare bowel sounds. LABORATORY DATA: His white count is 17.2, hemoglobin and hematocrit are 8.7 and 26, and platelet count 218. His bilirubin is 1.4, AST 57. Ammonia 123. CO2 of 8, his creatinine is 7, BUN of 51. Ultrasound shows cirrhosis, splenomegaly. CT scan shows small bowel dilatation, no transition zone. Cardiomegaly and cirrhosis. ASSESSMENT: The patient is extremely high risk for surgery. He is hypotensive, acidotic. I called his daughter, who is the next of kin. She is a nurse practitioner. She does not want any surgical treatment. She says surgery is out of the question. Job ID: [id number]
[2018-11-07 16:26] LABS: Hemoglobin 9.5 g/dL (14.0-18.0)
[2018-11-07] MEDS: Octreotide Acetate 1,250 MCG in Sodium Chloride 0.9% 250 ML 250 ML IVPB SCH (20:12)
--- NOTE | 2018-11-07 20:40 | OP ---
DATE OF PROCEDURE: 11/07/2018 PROCEDURE PERFORMED: Esophagogastroduodenoscopy with band ligation. INDICATION FOR PROCEDURE: Hematemesis. DESCRIPTION OF PROCEDURE: After the risks and benefits of the procedure were explained to the patient's medical power of attorney lawyer (the patient's daughter, Jamari) including risks of bleeding, infection, perforation, reactions to anesthesia, aspiration, and/or pain, informed consent was obtained. The patient was already in the ICU and was intubated, although was on minimal sedation, but with his altered mental status, no additional sedation was administered. Once the patient was placed in adequate position for the upper endoscopy while in the ICU, the therapeutic endoscope was introduced into the mouth with intubation of the esophagus, stomach and the proximal small intestines with the findings listed below. The patient tolerated the procedure well with no immediate perioperative complications. Upon conclusion of the procedure, all equipment was removed from the patient and cleaned per postprocedure ICU protocol. FINDINGS: Esophagus: A moderate amount of retained blood was still present within the mid and distal esophagus, but was amenable to irrigation and suctioning after a lengthy amount of time of both adequate visualization of the entire esophagus was able to be achieved. Normal-appearing mucosa was seen in the proximal and mid esophagus, however large esophageal varices (grade 3) were seen in the distal esophagus and noted to have numerous fibrin clots over each of the esophageal varices indicating most likely source of recent GI bleed. Given this finding, band ligation was then performed x6 with good hemostasis achieved, an active bleeding seen during the process of banding these esophageal varices. There was no observed bleeding at the end of this maneuver. Otherwise, there was no evidence of ulcerations, mass, or lesions. Stomach: A large amount of retained clotted blood and some mild food debris was seen in the proximal stomach and initially limited visualization of the gastric mucosa. However, upon aggressive irrigation and suctioning after a lengthy period of time, it was able to be adequately suctioned out of the stomach for adequate visualization of the gastric mucosa. With adequate views visualization, there was no evidence of gastric varices, albeit there were scattered polyps seen throughout the entire stomach that also did not show any evidence of active/recent bleeding. Normal-appearing mucosa was then seen in the distal gastric body, antrum, and incisura. There was no evidence of erosions, ulcerations, mass, lesions, or active bleeding. Duodenum: Normal-appearing mucosa was seen with aggressive irrigation and suctioning. The retained blood within the duodenum was able to be removed with adequate visualization of the duodenum. There was no evidence of erosions, ulcerations, mass, lesions, or active/recent bleeding. IMPRESSION: 1. Large (grade 3) distal esophageal varices with numerous fibrin clots indicating recent active bleed, now status post band ligation x6 with good hemostasis achieved. 2. Large amount of retained blood and blood clot, both within the esophagus in the stomach that was removed via irrigation and suctioning. 3. Multiple gastric polyps measuring 3 to 4 mm in size, but without any evidence of recent bleeding. No biopsies taken today given increased risk of further bleeding. RECOMMENDATIONS: 1. We would continue to trend hemoglobin and hematocrit and transfuse as necessary to maintain hemoglobin and hematocrit of 7/21. 2. Continue to monitor clinically for signs of active GI bleeding. 3. We would continue the PPI drip for the next 24 hours and then can transfer the patient to pantoprazole 40 mg IV b.i.d. 4. We would continue octreotide drip for approximately 72 hours total duration of therapy. 5. We would continue to monitor the patient for signs of improvement of small bowel ileus. 6. We would refrain from placing either OG or NG tube at this time given recent placement of band over the esophageal varices. 7. We will consider placing this tube in approximately 48 hours. We will continue to follow. Please call with any questions. Job ID: [id number]
[2018-11-08] MEDS: Insulin Regular 300 UNITS/3 ML VIAL SC PRN (00:36)
[2018-11-08] MEDS: Sodium Chloride 0.9% 1,000 ML IV SCH (02:43)
[2018-11-08] MEDS: Pantoprazole 80 MG, Admixture Fee 1 EACH in Sodium Chloride 0.9% 100 ML IVPB SCH ×2 (02:44→13:58)
[2018-11-08 04:35] LABS: ALT (SGPT) 514 U/L (8-55); AST (SGOT) 859 U/L (5-34); Albumin 2.8 g/dL (3.4-4.8); Alkaline Phosphatase 158 U/L (40-150); Anion Gap 25 mmol/L (10-20); BUN (Urea Nitrogen) 58 mg/dL (8.4-25.7); Bilirubin, Total 2.2 mg/dL (0.2-1.2); Calc. Creatinine Clearance 13 mL/min (70-130); Calcium 8.2 mg/dL (7.8-10.44); Carbon Dioxide 13 mmol/L (23-31); Chloride 96 mmol/L (98-107); Estimated GFR-MDRD 8; Globulin 2.6 g/dL (2.4-3.5); Glucose 178 mg/dL (80-115); Potassium 3.2 mmol/L (3.5-5.1); Protein, Total 5.4 g/dL (5.8-8.1); Sodium 131 mmol/L (136-145)
[2018-11-08 04:47] LABS: #Lymphocytes 0.4 thou/uL (1.20-3.40); #Monocytes 0.6 thou/uL (0.11-0.59); #Neutrophils 13.9 thou/uL (1.40-6.50); %Eosinophils 0.1 % (0.0-10.0); %Lymphocytes 2.5 % (21.0-51.0); %Monocytes 4.3 % (0.0-10.0); %Neutrophils 93.2 % (42.0-75.0); Hemoglobin 9.9 g/dL (14.0-18.0); Large Platelets SLIGHT; MDiff Complete? YES; Mean Corpuscular HGB CONC 34.8 g/dL (32.0-36.0); Mean Corpuscular Hemoglobin 32.7 pg (27.0-31.0); Mean Corpuscular Volume 94.1 fL (78.0-98.0); Mean Platelet Volume 9.5 fL (7.4-10.4); Platelet Count 85 thou/uL (130-400); Platelet Morphology Comment Appears Decreased; RBC Distribution Width 13.1 % (11.5-14.5); Red Blood Cell (RBC) Count 3.02 mill/uL (4.70-6.10); White Blood Cell (WBC) Count 14.9 thou/uL (4.8-10.8)
[2018-11-08] MEDS: Piperacillin/Tazobactam 2.25 GM in Sodium Chloride 0.9% 100 ML IVPB SCH ×3 (05:05→21:01)
[2018-11-08 07:48] LABS: Base Excess (BEa) -9.9 mEq/L (-2.0 to +3.0); Carboxyhemoglobin (COHb) 0.8 gm% (0.0-3.0); O2 Tension (PaO2) 86.6 mmHg (> 80.0); Potassium - ABG Lab 3.07 mmol/L (3.70-5.30); pH, Arterial 7.46 (7.35-7.45)
[2018-11-08 07:49] LABS: CO2 Tension 17.2 mmHg (35.0-45.0); Puncture Site LRA
[2018-11-08] MEDS: Insulin Glargine 86 UNITS in Pre-Filled Syringe 1 EACH SC SCH (08:46)
[2018-11-08] MEDS: Polyethylene Glycol 3350 17 GM Packet PER TUBE SCH (08:50)
[2018-11-08] MEDS: methylPREDNISolone Sod Succ 40 MG VIAL IVP SCH ×2 (08:51→21:00)
--- NOTE | 2018-11-08 10:38 | PDOC.FM ---
- Subjective Subjective: Pt is intubated. Pt is not sedated at this time but does not respond. No acute events noted by nursing overnight. No concerns with family. Discussed with using sand digger about goals of care and pt current status. - Objective MAR Reviewed: Yes Vital Signs & Weight: Vital Signs (12 hours) Temp Pulse Resp BP Pulse Ox 11/08/18 10:00 17 11/08/18 08:00 98.5 F 19 11/08/18 07:42 91 11/08/18 06:00 18 11/08/18 04:00 18 11/08/18 03:00 98.8 F 11/08/18 02:00 18 11/08/18 01:09 90 94/56 L 11/08/18 01:05 87 22 H 100 11/08/18 00:00 19 11/07/18 23:00 98.6 F Weight Admit Weight 75.75 kg Weight 85.2 kg Most Recent Monitor Data Heart Rate from ECG 94 NIBP 98/53 NIBP BP-Mean 68 Respiration from ECG 17 SpO2 100 I&O: 11/07/18 11/08/18 11/09/18 06:59 06:59 06:59 Intake Total 3844.7 2316.8 Output Total 1280 Balance 2564.7 2316.8 Result Diagrams: 11/08/18 04:00 11/08/18 04:00 EKG Reviewed by me: Yes (A.fib with mild tachycardia) Radiology Reviewed by me: Yes (No new imaging to review) Phys Exam - Physical Examination Pt not sedated but does not repond, pt appears somewhat jaundiced Neck: no nodes Decreased breath sounds bilaterally. some rhonchi noted bilaterally Irregular, Mild tachy. Loud GARRETT Severly distended, minimal bowel sounds. Unable to assess due to pt being intubated and encephalopathic Deviation from normal: Pt not responding at this time Skin: cap refill <2 seconds Deviation from normal: Pt appears a little more jaundiced Dx/Plan (1) Hepatic encephalopathy Code(s): K72.90 - HEPATIC FAILURE, UNSPECIFIED WITHOUT COMA Status: Acute (2) Hyperammonemia Code(s): E72.20 - DISORDER OF UREA CYCLE METABOLISM, UNSPECIFIED Status: Acute (3) Small bowel obstruction Code(s): K56.609 - UNSP INTESTNL OBST, UNSP TO PARTIAL VERSUS COMPLETE OBST Status: Acute (4) Hepatic cirrhosis due to chronic hepatitis C infection Code(s): B18.2 - CHRONIC VIRAL HEPATITIS C; K74.60 - UNSPECIFIED CIRRHOSIS OF LIVER Status: Chronic (5) AF (paroxysmal atrial fibrillation) Code(s): I48.0 - PAROXYSMAL ATRIAL FIBRILLATION Status: Acute (6) Diastolic heart failure Code(s): I50.30 - UNSPECIFIED DIASTOLIC (CONGESTIVE) HEART FAILURE Status: Acute (7) DM2 (diabetes mellitus, type 2) Status: Chronic Qualifiers: Diabetes mellitus complication status: with hyperglycemia (8) ESRD on peritoneal dialysis Code(s): N18.6 - END STAGE RENAL DISEASE; Z99.2 - DEPENDENCE ON RENAL DIALYSIS Status: Chronic - Plan Plan: Hepatic encephalopathy - ALT/AST have increased today - Currently intubated and requiring no sedation - GI consulted, appreciate recs - SD lactulose not holding well, Acute hematemesis - bedside EGD reveals large amount of blood, without definitive source. they repeated EGD yesterday which showed varices. Varices were banded. - Will continue with IV octeotride and Protonix at recs of GI Seizure activity - likely secondary to numerous electrolyte disturbance - ativan prn acid/base disturbance - Anion gap metabolic acidosis with improved respiratory alkalosis - Nephrology consulted, appreciate recs - pulm consulted, appreciate recs - increasing LA - peritoneal dialysis daily Small bowel obstruction vs ischemic bowel - miralax and gentle hydration, will beg lactulose per NG when bowel fxn resumes. -NG tube being held for 48 hours per GI due to Varices. Will just continue supportive care for now. - consult surgery, Dr. Ivy- family does not wish to pursue surgery at this time. Pt very high risk. septic vs cardiogenic shock - hypotense, elevated WBC, tachycardia, afebrile, CVP wnl - zosyn started (11/04) - Peritoneal fluid analysis without WBC or bacteria. cx NGTD - echo read pending. - CXR without acute consolidation - 2u blood, levophed Hyperglycemia, DMII - Continue SS with 86u Lantus and hypoglycemic protocol. Hyperphosphatemia - dialysis as above ESRD on PD, missed 5 days prior to admission - Dr. Alexis consulted, continue perironteal dialysis with monitoring of lytes, appreciate recs Cirrhosis - see above - h/o of Hep C, treated, Hep C RNA pending. - RUQ US demonstrated cirrhosis, mild splenomegaly, and BL renal cysts -Pt liver enzymes increased. Pt status likely worsening HFpEF - Home meds currently held - repeat echo MDD - hold until NPO dc Prophylaxis: SCD Diet: NPO Fluids:50 NS abx: zosyn Disposition: Pt liver enzymes have increased. Pt not on pressors at this time. Pt status likely worsening. Concern for ischemic bowel. Talked with about goals of care. She states she wants to make pt DNR. Does not wish to have him get chest compressions. Will consult palliative care for family discussion and discuss goals of care. Pt status not looking well. Possibly even consider hospice.
--- NOTE | 2018-11-08 10:47 | PRG ---
DATE OF SERVICE: 11/08/2018 SUBJECTIVE: Mr. Moore is a 68-year-old [place]ian male, followed up for his ESRD. He is currently on peritoneal dialysis. The patient has been in the ICU due to decreased mentation. He also developed an episode of upper GI bleed. He underwent an upper GI endoscopy with Dr. Nick. Findings of bleeding were noted and the patient underwent some banding of the varices. Finding of a large grade 3 distal esophageal varices was noted. In addition, the patient has been referred to palliative care. He may have underlying ischemic bowel. Surgery has evaluated this patient and felt he is not a surgical candidate. He underwent peritoneal dialysis without any difficulty last night. OBJECTIVE: VITAL SIGNS: Blood pressure 116/68, heart rate 104, respiratory rate 22, pulse ox 100%. GENERAL: The patient is unresponsive. HEENT: Pinkish conjunctivae. Anicteric sclerae. NECK: No neck mass. No carotid bruits. No JVD. CHEST: No deformities. LUNGS: Clear breath sounds. No wheezing. No crackles. HEART: Normal sinus rhythm. No murmurs. No gallops. No rubs. ABDOMEN: Globular, soft, and nontender. No masses. Positive for PD catheter. EXTREMITIES: No edema. No deformities. MEDICATIONS: Medications of November 08, 2018, reviewed. LABORATORY DATA: Laboratories of November 08, 2018: White count 14.9, hemoglobin 9.9. Sodium 131, potassium 3.2, chloride 96, carbon dioxide 13, BUN 58, creatinine 6.67, AST 859, ALT 514, and albumin 2.8. ASSESSMENT AND PLAN: 1. Decreased mentation - secondary to a presumed metabolic encephalopathy. Continue supportive care. 2. Upper gastrointestinal bleed secondary to bleeding varices. The patient is status post upper GI endoscopy with banding. GI is following. PRN blood transfusion. 3. End-stage renal disease, stable. We will continue current continuous cyclic peritoneal dialysis regimen with this patient. No changes will be made with his current peritoneal dialysis. His overall prognosis remains poor. Palliative Care has been consulted. Job ID: [id number]
--- NOTE | 2018-11-08 11:20 | PRG ---
DATE OF SERVICE: 11/08/2018 Mr. Moore remains critically ill on the ventilator. We had a very in-depth discussion with the and she seems adamant that she does not want to advance the cardiac life support for her should he have an arrest. In the meantime, he remains critically ill. Blood pressure, however, is 90/50 with a MAP of 68. He is also on octreotide infusion following banding of some esophageal varices yesterday. Job ID: [id number]
[2018-11-08] MEDS: Amiodarone 450 MG in Dextrose 5% in Water 250 ML IVPB SCH (16:44)
[2018-11-08] MEDS: Dextrose 50% Abboject 50 ML SYRINGE SLOW IVP PRN (17:09)
--- NOTE | 2018-11-08 18:51 | PRG ---
DATE OF SERVICE: 11/08/2018 SUBJECTIVE: Lynne Moore is clinically unchanged. OBJECTIVE: VITAL SIGNS: Blood pressure 103/58, heart rate in 80s, respiratory rate in the teens. LUNGS: Clear. HEART: Regular rhythm. ABDOMEN: Soft. EXTREMITIES: Without edema. LABORATORY DATA: White count 14.9, hemoglobin 9.9, platelets 85,000. Sodium 131, potassium 3.2, chloride 96, bicarb 13, BUN 58, creatinine 6.67. PH 7.46, CO2 17, PO2 86. IMPRESSION: Multiorgan failure. We will continue current supportive care. Prognosis is quite poor. Family wants to continue to have everything done. Job ID: [id number]
[2018-11-09] MEDS: Pantoprazole 80 MG, Admixture Fee 1 EACH in Sodium Chloride 0.9% 100 ML IVPB SCH ×2 (00:01→19:47)
[2018-11-09] MEDS: Octreotide Acetate 1,250 MCG in Sodium Chloride 0.9% 250 ML 250 ML IVPB SCH (00:03)
[2018-11-09] MEDS: Sodium Chloride 0.9% 1,000 ML IV SCH ×2 (04:07→20:08)
[2018-11-09] MEDS ORDERED: Piperacillin/Tazobactam 2.25 GM VIAL ONE (05:01)
[2018-11-09 05:08] LABS: ALT (SGPT) 376 U/L (8-55); AST (SGOT) 359 U/L (5-34); Albumin 2.7 g/dL (3.4-4.8); Alkaline Phosphatase 176 U/L (40-150); Anion Gap 22 mmol/L (10-20); BUN (Urea Nitrogen) 53 mg/dL (8.4-25.7); Bilirubin, Total 2.2 mg/dL (0.2-1.2); Calc. Creatinine Clearance 14 mL/min (70-130); Calcium 8.1 mg/dL (7.8-10.44); Carbon Dioxide 16 mmol/L (23-31); Chloride 95 mmol/L (98-107); Estimated GFR-MDRD 9; Globulin 2.7 g/dL (2.4-3.5); Glucose 108 mg/dL (80-115); Protein, Total 5.4 g/dL (5.8-8.1); Sodium 130 mmol/L (136-145)
[2018-11-09] MEDS: Piperacillin/Tazobactam 2.25 GM in Sodium Chloride 0.9% 100 ML IVPB SCH ×3 (05:08→22:15)
[2018-11-09 05:21] LABS: Potassium 2.9 mmol/L (3.5-5.1)
[2018-11-09] MEDS ORDERED: Potassium Chloride 40 MEQ in Premix Bag 1 BAG IVPB SCH (05:45)
[2018-11-09 05:54] LABS: Band 11 % (5-11); Hemoglobin 10.7 g/dL (14.0-18.0); Large Platelets SLIGHT; Lymphocytes 3 % (21-51); MDiff Complete? YES; Mean Corpuscular HGB CONC 33.7 g/dL (32.0-36.0); Mean Corpuscular Hemoglobin 31.7 pg (27.0-31.0); Mean Corpuscular Volume 94.1 fL (78.0-98.0); Monocytes 3 % (0-10); Neutrophil 83 % (42-75); Platelet Count 92 thou/uL (130-400); Platelet Morphology Comment Appears Decreased; RBC Distribution Width 13.8 % (11.5-14.5); Red Blood Cell (RBC) Count 3.38 mill/uL (4.70-6.10); White Blood Cell (WBC) Count 20.3 thou/uL (4.8-10.8)
--- NOTE | 2018-11-09 07:06 | PDOC.FM ---
- Subjective Subjective: Pt is not sedated at this time but not responsive. Nurse reports will withdraw from some pain at times. Denies any acute events overnight. - Objective MAR Reviewed: Yes Vital Signs & Weight: Vital Signs (12 hours) Temp Pulse Resp BP Pulse Ox 11/09/18 06:00 16 11/09/18 04:18 95 11/09/18 04:00 99.3 F 19 11/09/18 02:00 19 11/09/18 01:01 106 H 11/09/18 01:00 100 11/09/18 00:00 99.2 F 25 H 11/08/18 22:13 109 H 91/66 11/08/18 22:00 16 11/08/18 20:00 99.0 F 15 100 Weight Admit Weight 75.75 kg Weight 82.6 kg Most Recent Monitor Data Heart Rate from ECG 97 NIBP 89/57 NIBP BP-Mean 67 Respiration from ECG 19 SpO2 100 I&O: 11/08/18 11/09/18 11/10/18 06:59 06:59 06:59 Intake Total 2316.8 1288 Balance 2316.8 1288 Result Diagrams: 11/09/18 04:14 11/09/18 04:14 EKG Reviewed by me: Yes (A. fib, tachy) Radiology Reviewed by me: Yes (official read pending. Decreased lung volume) Phys Exam - Physical Examination Pt is unresponsive to pain or voice HEENT: moist MMs, oral pharynx no lesions Neck: no nodes, no JVD, full ROM Respiratory: no wheezing, no rhonchi some mild rales bilaterally Cardiovascular: RRR, no significant murmur, no rub Severly distended. Minimimal bowel sounds Musculoskeletal: pulses present Trace edema Unable to assess 2/2 encephalopathy Deviation from normal: Pt is encephalopathic at this time Deviation from normal: Pt juandiced at this time. Dx/Plan (1) Hepatic encephalopathy Code(s): K72.90 - HEPATIC FAILURE, UNSPECIFIED WITHOUT COMA Status: Acute (2) Hyperammonemia Code(s): E72.20 - DISORDER OF UREA CYCLE METABOLISM, UNSPECIFIED Status: Acute (3) Small bowel obstruction Code(s): K56.609 - UNSP INTESTNL OBST, UNSP TO PARTIAL VERSUS COMPLETE OBST Status: Acute (4) Hepatic cirrhosis due to chronic hepatitis C infection Code(s): B18.2 - CHRONIC VIRAL HEPATITIS C; K74.60 - UNSPECIFIED CIRRHOSIS OF LIVER Status: Chronic (5) AF (paroxysmal atrial fibrillation) Code(s): I48.0 - PAROXYSMAL ATRIAL FIBRILLATION Status: Acute (6) Diastolic heart failure Code(s): I50.30 - UNSPECIFIED DIASTOLIC (CONGESTIVE) HEART FAILURE Status: Acute (7) DM2 (diabetes mellitus, type 2) Status: Chronic Qualifiers: Diabetes mellitus complication status: with hyperglycemia (8) ESRD on peritoneal dialysis Code(s): N18.6 - END STAGE RENAL DISEASE; Z99.2 - DEPENDENCE ON RENAL DIALYSIS Status: Chronic - Plan Plan: Hepatic encephalopathy - ALT/AST have down trended but still elevated - Currently intubated and requiring no sedation - GI consulted, appreciate recs - DC lactulose not holding well, Pt without NG tube per GI for varices at this time. Acute hematemesis - bedside EGD reveals large amount of blood, without definitive source. they repeated EGD yesterday which showed varices. Varices were banded. - Will continue with IV octeotride and Protonix at recs of GI -Holding NG tube for now Seizure activity - likely secondary to numerous electrolyte disturbance - ativan prn acid/base disturbance - Anion gap metabolic acidosis - Nephrology consulted, appreciate recs - pulm consulted, appreciate recs - increasing LA. will trend today. - peritoneal dialysis daily Small bowel obstruction vs ischemic bowel - miralax and gentle hydration, will begin lactulose per NG when bowel fxn resumes. -NG tube being held for 48 hours per GI due to Varices. Will just continue supportive care for now. - consult surgery, Dr. Ivy- family does not wish to pursue surgery at this time. Pt very high risk. septic vs cardiogenic shock - hypotense, elevated WBC, tachycardia, afebrile, CVP wnl - zosyn started (11/04) - Peritoneal fluid analysis without WBC or bacteria. cx NGTD - echo read pending. - CXR without acute consolidation - 2u blood, levophed Hyperglycemia, DMII - Continue SS decreased to 60 units as pt became hypoglycemic last night. Not taking in PO due to bowel. Will continue to trend glucose and adjust regimen as needed Hyperphosphatemia - dialysis as above ESRD on PD, missed 5 days prior to admission - Dr. Alexis consulted, continue perironteal dialysis with monitoring of lytes, appreciate recs Cirrhosis - see above - h/o of Hep C, treated, Hep C RNA pending. - RUQ US demonstrated cirrhosis, mild splenomegaly, and BL renal cysts -Pt liver enzymes have downtrended. will continue to follow. HFpEF - Home meds currently held - repeat echo MDD - hold until NPO dc Prophylaxis: SCD Diet: NPO Fluids:50 NS abx: zosyn Disposition: Pt WBC has continued to increase. Will continue to trend. Pt in Multi organ failure with poor prognosis. will continue to trend labs. Continue with supportive care. Palliative care consulted to help with decision on goals of care with patient. stated yesterday she would not want anything intensive done.
[2018-11-09 07:33] LABS: Actual Bicarbonate (HCO3a) 14.8 mEq/L (22-28); Calcium, Ionized 0.99 mmol/L (1.12-1.30); Hemoglobin (Hb) 10.7 g/dL (14.0-18.0); O2 Tension (PaO2) 76.3 mmHg (> 80.0); Potassium - ABG Lab 3.29 mmol/L (3.70-5.30); pH, Arterial 7.48 (7.35-7.45)
[2018-11-09 07:35] LABS: CO2 Tension 20.4 mmHg (35.0-45.0); Puncture Site LR
[2018-11-09] MEDS: Dextrose 50% Abboject 50 ML SYRINGE SLOW IVP PRN ×2 (07:40→11:11)
[2018-11-09] MEDS: Polyethylene Glycol 3350 17 GM Packet PER TUBE SCH (07:44)
[2018-11-09] MEDS: methylPREDNISolone Sod Succ 40 MG VIAL IVP SCH ×2 (07:44→19:48)
[2018-11-09 08:06] LABS: Lactic Acid 4.7 mmol/L (0.5-2.2)
--- NOTE | 2018-11-09 08:07 | RAD ---
EXAM: Portable chest PROVIDED CLINICAL HISTORY: Respiratory insufficiency COMPARISON: 11/07/2018 FINDINGS: Significant interval change with respect to the prior examination is not apparent. IMPRESSION: As above.
[2018-11-09] MEDS: Insulin Glargine 60 UNITS in Pre-Filled Syringe 1 EACH SC SCH (10:16)
--- NOTE | 2018-11-09 10:48 | PRG ---
DATE OF SERVICE: 11/09/2018 Mr. Moore remains in critical condition with multiple organ failure. According to the note per Dr. Head, the family wants to continue with full code status. His overall prognosis is dismal. We will continue to follow with the tightening machine operator and public speaking instructor. Job ID: [id number]
--- NOTE | 2018-11-09 12:42 | PRG ---
DATE OF SERVICE: 11/09/2018 SUBJECTIVE: Mr. Moore is a 68-year-old [place] male with ESRD and followed up by the [facility] for his maintenance peritoneal dialysis. Over the last several days, the patient has remained unresponsive. He continues to remain intubated. He has significant cirrhosis, has developed an upper GI bleed from the bleeding varices. No acute events, but the patient remains unimproved. Discussion over this poor prognosis was done with the family and they still want to pursue everything. He tolerated peritoneal dialysis last night. OBJECTIVE: VITAL SIGNS: Blood pressure is 105/60, temperature 99, heart rate 93, and pulse ox 100%. GENERAL: The patient remains unresponsive, intubated, on ventilator support. HEENT: Pinkish conjunctivae. Positive for icteric sclerae. NECK: No neck mass. No carotid bruits. No JVD. LUNGS: Clear breath sounds. HEART: Normal sinus rhythm. No murmur. No gallops. No rubs. ABDOMEN: Globular, soft. Positive for PD catheter. EXTREMITIES: No edema. MEDICATIONS: Medications of November 09, 2018, were reviewed. LABORATORY DATA: Laboratories of November 09, 2018; white count 20.3, hemoglobin 10.7. Sodium 130, potassium 2.9, chloride 95, carbon dioxide 16, BUN 53, creatinine 6.38. AST 359, ALT 376, albumin 2.7. November 09, 2018, chest x-ray shows no significant changes. ASSESSMENT AND PLAN: 1. End-stage renal disease, stable. We will continue current continuous cycling peritoneal dialysis regimen. No changes will be made with the current peritoneal dialysis solution. Tolerating ultrafiltration. 2. Metabolic encephalopathy/? hepatic encephalopathy-continue supportive care. The patient has underlying cirrhosis. 3. Anemia-continue to observe. 4. Mild hypokalemia. P.r.n. potassium replacement. His overall prognosis remains poor. We will attempt to discuss with the family regarding consideration for hospice care with this patient with multiple end organ [id number] renal disease and cirrhosis. Job ID: [id number]
[2018-11-09] MEDS: Dextrose 10% in Water 1,000 ML IV SCH ×2 (14:12→22:15)
[2018-11-09] MEDS: Amiodarone 450 MG in Dextrose 5% in Water 250 ML IVPB SCH (19:47)
--- NOTE | 2018-11-09 20:14 | PRG ---
DATE OF SERVICE: 11/09/2018 SUBJECTIVE: Mr. Moore is minimally arousable. OBJECTIVE: VITAL SIGNS: He is afebrile. Respiratory rates in the teens, blood pressure 110/60, heart rate is 90. He is in sinus rhythm. Intake and outputs, positive 1288. LUNGS: Clear anteriorly. HEART: Regular rhythm. ABDOMEN: Soft. EXTREMITIES: Without asymmetry. Only trace edema. IMAGING STUDIES: Chest x-ray is reviewed, it is unchanged. LABORATORY DATA: White count 20, hemoglobin 10, platelets 92,000. PH of 7.48, pCO2 of 20, pO2 of 76. Sodium 130, potassium 2.9, chloride 95, bicarb 16, BUN 53, creatinine 6.38. Glucose has been running on the low side today. We now have D10 running at 75 mL an hour. IMPRESSION: 1. Cirrhosis. 2. End-stage renal disease. 3. Hepatic encephalopathy. 4. Respiratory failure. He is not weanable until his encephalopathy improves. His prognosis is dismal. An NG tube will be placed with the approval of Gastroenterology, and started on lactulose. Then once he is awake, he can be weaned from mechanical ventilation. Critical care time is 35 minutes. Job ID: [id number] MTDD
--- NOTE | 2018-11-09 21:05 | PRG ---
DATE OF SERVICE: 11/08/2018 REASON FOR CONSULTATION: Hematemesis, cirrhosis, possible ileus. SUBJECTIVE: The patient did not experience any acute events or problems overnight, nor did he require placement back on pressor support to maintain pressures. He is currently not on any sedation medication, but has not exhibited any purposeful responses or movements. He did undergo EGD yesterday with the findings of large esophageal varices in the distal esophagus that were subsequently banded x6 with good hemostasis achieved after the procedure. There were no further episodes of hematemesis. OBJECTIVE: VITAL SIGNS: Temperature 98.4, pulse 95, blood pressure 96/54, respiratory rate 18, saturating 100% on mechanical ventilation. GENERAL: The patient is intubated and sedated in no acute distress. CARDIOVASCULAR: Regular rate and rhythm with 3/6 systolic murmur at the left lower sternal border. PULMONARY: Coarse breath Sounds heard in all lung chen consistent with mechanical ventilation. ABDOMEN: Hypoactive bowel sounds, soft. Oulp-qk-[id number] abdominal distention. No grimacing or discomfort to palpation. EXTREMITIES: 1+ bilateral lower extremity edema. LABORATORY DATA: CBC with a white blood cell count of 14.9, hemoglobin 9.9, hematocrit 28.5, platelets 85. Chemistry with a sodium of 131, potassium 3.2, chloride 96, CO2 13, BUN 58, creatinine 6.67, glucose 178. AST 859, ALT 514, alkaline phosphatase 158, total bilirubin 2.2. MELD score calculation with yesterday's INR currently at 32. IMAGING DATA: No current GI imaging is available for review. ASSESSMENT AND PLAN: The patient is a 68-year-old male presenting with history of cirrhosis secondary to chronic hepatitis C (treated) with altered mental status, presumably from hepatic encephalopathy, end-stage renal disease on peritoneal dialysis and presenting with clinical picture consistent with small bowel ileus and hematemesis. 1. Hematemesis. The patient had acute onset of hematemesis approximately 24 to 48 hours ago with the vomiting of bright red blood. Esophagogastroduodenoscopy was performed on November 06, 2018, with inadequate visualization of the esophagus and stomach due to a significant amount of retained blood. Repeat esophagogastroduodenoscopy on November 07 again showed a large amount of blood, but were amenable to irrigation and suctioning. There was no evidence of ulcerations, but rather large esophageal varices were seen in the distal esophagus and underwent banding x6 with good hemostasis achieved. Since then, he has had stabilization of his hemoglobin and hematocrit and no further episodes of hematemesis. Recommendations: a. We will continue to trend hemoglobin and hematocrit and transfuse as necessary to maintain a hemoglobin and hematocrit of 7/21. b. Continue to monitor clinically for signs of active gastrointestinal bleeding. c. We would continue proton pump inhibitors, but can be transferred to pantoprazole 40 mg b.i.d. d. We will continue octreotide for a total duration of therapy of 72 hours(discontinuation tomorrow). e. We would continue antibiotic prophylaxis in a cirrhotic patient with an upper GI bleed. 2. Encephalopathy. The patient is presenting with altered mental status upon admission and throughout this hospitalization despite not being on any sedative medications. He was noted to have a significantly elevated ammonia on admission and was treated with treated for presumed hepatic encephalopathy per rectum given his inability to tolerate oral intake secondary to altered mental status and possible ileus. Per most recent laboratory testing, his ammonia was downtrending, but he has not had any significant improvement in terms of his mental status thus far. It is unclear if this is due to a metabolic encephalopathy like hepatic encephalopathy versus sepsis versus ileus generating an altered mental status. Recommendations: a. We would continue lactulose per rectum for the time being in light of history of cirrhosis and possible hepatic encephalopathy contributing to his current cognitive status. b. We would consider placing orogastric or nasogastric tube tomorrow for oral support with lactulose and improvement of his encephalopathy. c. Continue with antibiotics for treatment of possible infection contributing to his mental state. 3. Ileus. The patient is presenting with a probable ileus based on CT findings with a dilated small bowel more proximally and decompressed distal small bowel and colon. However, there is no definitive transition point noted. Given his elevated lactate and elevated white blood cell count, it was also strongly concerning for ischemia within the bowel contributing to his current clinical status. At this time, he seems to be responding to therapy, although he continues to have a distended abdomen consistent with continued ileus. Recommendations: a. We will continue with the above antibiotics and conservative intravenous fluid support for possible ileus. b. Lactulose enemas for the time being with the possibility of oral lactulose starting tomorrow. c. I would obtain a KUB tomorrow for further evaluation of his small bowel ileus. 4. Transaminitis. The patient initially presented with relatively normal liver function tests with normal AST, ALT, alkaline phosphatase and total bilirubin. Actually, his alkaline phosphatase and total bilirubin have been slowly up trending over the last 24 to 48 hours and now with a significant elevation in both AST and ALT concerning for an additional process. It is unclear if this transaminitis was due to medication administration, hypotension within the liver or the harbinger of acute liver failure (unlikely). Recommendations: a. We would review the patient's medication list and attempt to avoid any potentially hepatotoxic medications. b. We would attempt to maintain normotensive pressures to maintain adequate blood flow within the liver. c. We will consider cardiac evaluation for possible myocardial infarction or heart failure contributing to low flow state it would then result in transaminitis. We will continue to follow. Please call with any questions. Job ID: [id number]
--- NOTE | 2018-11-09 22:40 | PRG ---
DATE OF SERVICE: 11/09/2018 REASON FOR CONSULTATION: Hematemesis, cirrhosis, probable ileus. SUBJECTIVE: Per nursing staff, there was no change in the patient's clinical status overnight nor did he exhibit any changes during the course of the day today. He continues to be in an encephalopathic state and has not exhibited any purposeful gross responses or movements but does respond to noxious stimuli. Since the EGD, there have been no additional episodes of hematemesis. OBJECTIVE: VITAL SIGNS: Temperature 99.2, pulse 96, blood pressure 125/71, respiratory rate 18, and saturating 100% on room air. GENERAL: The patient is intubated but not sedated. Does not exhibit any distress. CARDIOVASCULAR: Regular rate and rhythm. RESPIRATORY: Coarse breath sounds heard in all lung chen consistent with mechanical ventilation. ABDOMEN: Hypoactive bowel sounds. Soft. Mild to moderate abdominal distention. No grimacing or discomfort to palpation. EXTREMITIES: 1+ bilateral lower extremity edema. LABORATORY DATA: CBC with a white blood cell count of 20.3, hemoglobin 10.7, hematocrit 31.8, and platelets 92. Chemistry with a sodium of 130, potassium 2.9, chloride 95, CO2 of 16, BUN 53, creatinine 6.38, glucose 108. AST 359, ALT 376, alkaline phosphatase 176, total bilirubin 2.2. IMAGING DATA: No current GI imaging is available for review. ASSESSMENT AND PLAN: The patient is a 68-year-old male presenting with a history of cirrhosis secondary to chronic hepatitis C (treated); end-stage renal disease, on peritoneal dialysis; presenting with a clinical picture consistent with small bowel ileus, hematemesis, and metabolic encephalopathy. Hematemesis: During the course of this hospitalization, the patient exhibited acute hematemesis consisting of gross bright red blood. Initial endoscopy was able unable to visualize the upper GI tract mucosa. However, repeat EGD on November 07 showed large esophageal varices in the distal esophagus with band ligation x6 with good hemostasis achieved and no further bleeding since then. Recommendations: 1. Would continue to trend H and H and transfuse as necessary to maintain an H and H of 7/21. 2. Continue to monitor clinically for signs of active GI bleeding. 3. Would continue the patient on pantoprazole 40 mg IV b.i.d. 4. Would discontinue octreotide today given the total duration of therapy of 72 hours. 5. Would continue current antibiotic prophylaxis in a cirrhotic patient with upper GI bleed. Encephalopathy: The patient initially presented with altered mental status on admission and throughout this hospitalization has not shown any significant improvement while not being on any sedative medications. He was noted to have a significantly elevated ammonia on admission raising concern for hepatic encephalopathy, but has been relatively unresponsive to lactulose enemas thus far. At this point, it is unclear whether or not he would respond to oral administration of this medication as well. Recommendations: 1. Would continue lactulose per rectum, but could consider placing an orogastric tube for oral administration of lactulose to improve his possible hepatic encephalopathy. 2. Continue with the current antibiotic regimen for possible infection contributing to his mental state. Ileus: The patient presented with a probable ileus based on CT findings with dilated small bowel more proximally and decompressed small bowel distally along with decompressed colon. However, there was no definitive transition point noted making the likelihood of a small bowel obstruction less likely. With his elevated lactate and elevated white blood cell count during this admission, it is also strongly concerning for ischemia within the bowel that could further contribute to his current clinical status. Recommendations: 1. Would continue with the above antibiotics and conservative IV fluid support for possible ileus. 2. Would consider replacing OG tube for decompression of the proximal GI tract, although would do so gently given the recent band ligation performed. Transaminitis: The patient presented to the hospital with relatively normal liver function tests with normal AST, ALT, alkaline phosphatase, and total bilirubin. However, shortly after the upper endoscopy on November 07, he exhibited significant transaminitis with both his AST and ALT in the 500 to 800 range. Further testing today shows that it is currently downtrending. It is unclear at this time whether or not this transaminitis was due to medication administration, hypotension related to his upper GI bleed, or harbinger of worsening liver failure (unlikely). Recommendations: 1. Would continue to trend LFTs daily in addition to INR daily for evaluation of the patient's hepatic function. 2. Would attempt to maintain normotensive pressures to maintain adequate blood flow to the liver. We will continue to follow. Please call with any questions. Job ID: [id number]
[2018-11-10] MEDS: Insulin Regular 300 UNITS/3 ML VIAL SC PRN ×3 (00:08→08:06)
[2018-11-10 05:55] LABS: ALT (SGPT) 245 U/L (8-55); AST (SGOT) 149 U/L (5-34); Albumin 2.5 g/dL (3.4-4.8); Alkaline Phosphatase 175 U/L (40-150); Anion Gap 24 mmol/L (10-20); BUN (Urea Nitrogen) 56 mg/dL (8.4-25.7); Bilirubin, Total 2.8 mg/dL (0.2-1.2); Calc. Creatinine Clearance 13 mL/min (70-130); Calcium 7.9 mg/dL (7.8-10.44); Carbon Dioxide 14 mmol/L (23-31); Chloride 92 mmol/L (98-107); Estimated GFR-MDRD 9; Globulin 2.9 g/dL (2.4-3.5); Glucose 250 mg/dL (80-115); Potassium 3.3 mmol/L (3.5-5.1); Protein, Total 5.4 g/dL (5.8-8.1); Sodium 127 mmol/L (136-145)
[2018-11-10 05:59] LABS: Band 12 % (5-11); Hemoglobin 10.8 g/dL (14.0-18.0); MDiff Complete? YES; Mean Corpuscular HGB CONC 33.6 g/dL (32.0-36.0); Mean Corpuscular Hemoglobin 32.2 pg (27.0-31.0); Mean Platelet Volume 10.2 fL (7.4-10.4); Monocytes 5 % (0-10); Myelocyte 1 % (0-0); Neutrophil 82 % (42-75); Nucleated RBC 3 % (0); Platelet Count 78 thou/uL (130-400); Platelet Morphology Comment Appears Decreased; RBC Distribution Width 13.9 % (11.5-14.5); Red Blood Cell (RBC) Count 3.36 mill/uL (4.70-6.10); White Blood Cell (WBC) Count 20.5 thou/uL (4.8-10.8)
[2018-11-10] MEDS: Piperacillin/Tazobactam 2.25 GM in Sodium Chloride 0.9% 100 ML IVPB SCH ×3 (06:19→21:25)
--- NOTE | 2018-11-10 06:52 | PDOC.FM ---
- Subjective Subjective: pt resting in bed, intubated. minimally responsive without sedation. no events reported overnight - Objective Vital Signs & Weight: Vital Signs (12 hours) Temp Pulse Resp BP Pulse Ox 11/10/18 06:00 18 11/10/18 05:00 98.8 F 11/10/18 04:32 98 11/10/18 04:00 18 11/10/18 02:00 16 11/10/18 00:00 98.9 F 16 11/09/18 23:30 89 98/64 11/09/18 22:00 21 H 11/09/18 20:00 19 100 11/09/18 19:00 99.2 F 90 11/09/18 18:59 100 Weight Admit Weight 75.75 kg Weight 82.4 kg Most Recent Monitor Data Heart Rate from ECG 94 NIBP 118/80 NIBP BP-Mean 92 Respiration from ECG 19 SpO2 100 I&O: 11/08/18 11/09/18 11/10/18 06:59 06:59 06:59 Intake Total 2316.8 1288 3149 Output Total 1170 Balance 2316.8 1288 1979 Result Diagrams: 11/10/18 04:30 11/10/18 04:30 Phys Exam - Physical Examination Constitutional: NAD HEENT: moist MMs Neck: supple upper airway sounds Cardiovascular: RRR Gastrointestinal: soft Musculoskeletal: pulses present retracts from pain Skin: no rash Dx/Plan (1) Hepatic encephalopathy Code(s): K72.90 - HEPATIC FAILURE, UNSPECIFIED WITHOUT COMA Status: Acute (2) Hyperammonemia Code(s): E72.20 - DISORDER OF UREA CYCLE METABOLISM, UNSPECIFIED Status: Acute (3) Atrial fibrillation with normal ventricular rate Code(s): I48.91 - UNSPECIFIED ATRIAL FIBRILLATION Status: Acute (4) Cirrhosis of liver with ascites Code(s): K74.60 - UNSPECIFIED CIRRHOSIS OF LIVER Status: Acute (5) Congestive heart failure Code(s): I50.9 - HEART FAILURE, UNSPECIFIED Status: Acute (6) Encephalopathy acute Code(s): G93.40 - ENCEPHALOPATHY, UNSPECIFIED Status: Acute (7) Hyperglycemia Code(s): R73.9 - HYPERGLYCEMIA, UNSPECIFIED Status: Acute (8) Hyponatremia Code(s): E87.1 - HYPO-OSMOLALITY AND HYPONATREMIA Status: Acute (9) Lactic acid acidosis Code(s): E87.2 - ACIDOSIS Status: Acute (10) Leukocytosis, unspecified Code(s): D72.829 - ELEVATED WHITE BLOOD CELL COUNT, UNSPECIFIED Status: Acute (11) Diabetes Mellitus Type 2 in Nonobese Code(s): E11.9 - TYPE 2 DIABETES MELLITUS WITHOUT COMPLICATIONS Status: Chronic (12) ESRD on peritoneal dialysis Code(s): N18.6 - END STAGE RENAL DISEASE; Z99.2 - DEPENDENCE ON RENAL DIALYSIS Status: Chronic - Plan Plan: Hepatic encephalopathy - Ammonia remains elevated, coags up, ALT/AST near baseline - Currently intubated and requiring no sedation - GI consulted, appreciate recs - OG lactulose as tolerated Acute hematemesis - bedside EGD reveals large amount of blood, varices ligated - octreotide, protonix Seizure activity - likely secondary to numerous electrolyte disturbance - ativan prn acid/base disturbance - Anion gap metabolic acidosis with improved respiratory alkalosis - Nephrology consulted, appreciate recs - pulm consulted, appreciate recs - peritoneal dialysis daily Small bowel ileus vs obstruction vs ischemic bowel - NG to low-intermediate wall suction. Lactulose enemas - minimal output from NG. - miralax and gentle hydration, repeat KUB - consult surgery, Dr. Ivy: not surgical candidate septic vs cardiogenic shock - hypotense, elevated WBC, tachycardia, afebrile, CVP wnl - zosyn started (11/04) - Peritoneal fluid analysis without WBC or bacteria. cx NGTD - echo pending reveals severe aortic stenosis - CXR without acute consolidation Hyperglycemia, DMII - Continue SS with 86u Lantus and hypoglycemic protocol. Hyperphosphatemia - dialysis as above ESRD on PD, missed 5 days prior to admission - Dr. Alexis consulted, continue perironteal dialysis with monitoring of lytes, appreciate recs Cirrhosis - see above - h/o of Hep C, treated, Hep C RNA pending. - RUQ US demonstrated cirrhosis, mild splenomegaly, and BL renal cysts HFpEF - Home meds currently held MDD - hold until NPO dc Code: Full - spoke with daughter (KINSEY) and confirmed code status Prophylaxis: SCD Diet: NPO Fluids:50 D5 NS abx: zosyn Disposition: poor prognosis, palliative to discuss goals of care Addendum - Attending - Attending Attestation Date/Time: 11/10/18 1157 I personally evaluated the patient and discussed the management with Dr. Umanzor I agree with the History, Examination, Assessment and Plan documented above with any addition or exceptions noted below - Patient intubated; rsponsive to painful stimuli only; on no sedation. Afebrile VSS. A/P: 1) Gi bleed secondary to varices- s/p banding. H/H stable; continue to monitor. 2) Encephalopathy- possibly hepatic- not improved with lactulose. 3) ESRD on PD- continue PD as per nephrology. 4) Ileus with possible small bowel ischemia - poor prognosis; not surgical candidate. Will continue to discuss with family.
[2018-11-10] MEDS: Pantoprazole 80 MG, Admixture Fee 1 EACH in Sodium Chloride 0.9% 100 ML IVPB SCH ×2 (08:02→18:22)
[2018-11-10] MEDS: Polyethylene Glycol 3350 17 GM Packet PER TUBE SCH (08:06)
[2018-11-10] MEDS: methylPREDNISolone Sod Succ 40 MG VIAL IVP SCH (08:06)
[2018-11-10 09:47] LABS: INR-International Normal Ratio 1.9; PTT 37.3 SEC (22.9-36.1); Prothrombin Time 21.4 SEC (12.0-14.7)
--- NOTE | 2018-11-10 09:54 | PRG ---
DATE OF SERVICE: 11/10/2018 SUBJECTIVE: Mr. Moore is a 68-year-old [place] male with ESRD and followed up by the [facility] for his maintenance peritoneal dialysis. Currently, tolerating current peritoneal dialysis. His hospitalization has been marred by a GI bleed secondary to bleeding varices. He has undergone banding with this varices. His mentation remains unimproved. He remains unresponsive. I did discuss at length with the son and about the poor prognosis. They are made aware that the patient has worsened. He has also been suspected to have bowel ischemia and is not a surgical candidate. OBJECTIVE: VITAL SIGNS: Blood pressure is 121/62, heart rate 88, respiratory rate 17, and pulse ox 100%. GENERAL: Noted to be unresponsive, intubated, on ventilator support. SKIN: Adequate turgor. HEENT: He has a pinkish conjunctivae. Anicteric sclerae. NECK: No neck mass. No carotid bruits. No JVD. CHEST: No deformities. LUNGS: Clear breath sounds. HEART: Normal sinus rhythm. No murmur. No gallops. No rubs. ABDOMEN: Globular and soft. No bowel sounds. Positive for PD catheter. EXTREMITIES: No edema. MEDICATIONS: Medications of November 10, 2018, was reviewed. LABORATORY DATA: Laboratories of November 10, 2018, white count 20.5 and hemoglobin 10.8. Sodium 127, potassium 3.3, chloride 92, carbon dioxide 14, BUN 56, creatinine 6.37, glucose 250, AST 149, ALT 245, and albumin 2.5. ASSESSMENT AND PLAN: 1. End-stage renal disease. Continuing daily peritoneal dialysis, ultrafiltration being tolerated. 2. Ischemic bowel - supportive care. This patient is not a surgical candidate. 3. Cirrhosis with status post gastrointestinal bleed - status post banding of varices. Prognosis remains poor. Continue supportive care. Job ID: [id number]
[2018-11-10] MEDS ORDERED: Sodium Chloride 0.9% 1,000 ML IV SCH (11:45)
[2018-11-10] MEDS: Insulin Glargine 60 UNITS in Pre-Filled Syringe 1 EACH SC SCH (12:23)
[2018-11-10 14:13] VITALS: BMI 26.8
[2018-11-10] MEDS: Amiodarone 450 MG in Dextrose 5% in Water 250 ML IVPB SCH (15:44)
--- NOTE | 2018-11-10 16:53 | PRG ---
DATE OF SERVICE: 11/10/2018 SERVICE: Pulmonary Medicine. INTERVAL HISTORY: The patient is doing okay from Respiratory standpoint. He remains on 21% of FiO2. His blood pressures are stabilized a little bit. He is requiring a Levophed. Otherwise, there has been no interval change to his condition. PHYSICAL EXAMINATION: VITAL SIGNS: Afebrile, pulse 94, blood pressure 133/88, respirations 17, saturation 100% on 21% FiO2, and a PEEP of 5. GENERAL: The patient is encephalopathic still. HEENT: Normocephalic and atraumatic. Sclerae white. Conjunctivae pink. Oral mucosa is moist without lesions. LUNGS: Decent air entry. Rhonchi are present. No crackles or wheezing appreciated. HEART: Normal rate and regular. ABDOMEN: Soft, nontender, and nondistended. Bowel sounds are positive. MUSCULOSKELETAL: No cyanosis or clubbing. There is diffuse 2+ pitting throughout. NEUROLOGIC: Grossly nonfocal. LABORATORY DATA: WBC 20.5, hemoglobin 10.8, platelets 78,000. Neutrophil count is 82% on top of 12% bands. INR 1.9. Creatinine 6.37, BUN 56, bicarb 14, potassium 3.3, sodium 127. AST and ALT are downtrending. Alkaline phosphatase is stable. Ammonia has normalized. IMAGING STUDIES: Echocardiogram shows a normal ejection fraction and concentric left ventricular hypertrophy. Severe stenosis of the aortic valve is present. Pulmonary artery pressures are moderately elevated. ASSESSMENT: 1. Respiratory failure secondary to inability to protect airway. 2. Metabolic encephalopathy. 3. End-stage renal disease, on peritoneal dialysis. 4. Septic shock secondary to suspected gastrointestinal source. 5. Ileus. 6. Acute blood loss anemia. 7. Variceal bleed, status post banding x3. 8. Atrial fibrillation with rapid ventricular response, paroxysmal, currently sinus rhythm. 9. Multisystem organ dysfunction. DISCUSSION AND PLAN: The patient is fine from respiratory standpoint at this point. That being said, his mental status prevents any type of extubation or liberation from mechanical ventilation. We will continue supportive care and daily laboratories. We will continue our empiric antibiotics. Of note, all culture results are negative to date. D10 water will be interrupted as the patient is hyponatremic and his blood sugars have been maintained well. Amiodarone will be interrupted. Critical care time: 30 minutes. Job ID: [id number] [facility]
[2018-11-10] MEDS: Dextrose 50% Abboject 50 ML SYRINGE SLOW IVP PRN (21:42)
[2018-11-11] MEDS: Pantoprazole 80 MG, Admixture Fee 1 EACH in Sodium Chloride 0.9% 100 ML IVPB SCH (04:13)
[2018-11-11 05:17] LABS: INR-International Normal Ratio 2.1; PTT 38.6 SEC (22.9-36.1); Prothrombin Time 23.3 SEC (12.0-14.7)
[2018-11-11 05:43] LABS: ALT (SGPT) 158 U/L (8-55); AST (SGOT) 83 U/L (5-34); Albumin 2.3 g/dL (3.4-4.8); Alkaline Phosphatase 161 U/L (40-150); Anion Gap 26 mmol/L (10-20); BUN (Urea Nitrogen) 55 mg/dL (8.4-25.7); Bilirubin, Total 3.4 mg/dL (0.2-1.2); Calc. Creatinine Clearance 13 mL/min (70-130); Calcium 7.6 mg/dL (7.8-10.44); Carbon Dioxide 13 mmol/L (23-31); Chloride 92 mmol/L (98-107); Estimated GFR-MDRD 9; Globulin 2.9 g/dL (2.4-3.5); Glucose 164 mg/dL (80-115); Potassium 3.1 mmol/L (3.5-5.1); Protein, Total 5.2 g/dL (5.8-8.1); Sodium 128 mmol/L (136-145)
[2018-11-11 05:49] LABS: Band 11 % (5-11); Hemoglobin 10.9 g/dL (14.0-18.0); Lymphocytes 5 % (21-51); MDiff Complete? YES; Mean Corpuscular HGB CONC 33.9 g/dL (32.0-36.0); Mean Corpuscular Hemoglobin 32.3 pg (27.0-31.0); Mean Corpuscular Volume 95.2 fL (78.0-98.0); Neutrophil 84 % (42-75); Nucleated RBC 3 % (0); Platelet Count 94 thou/uL (130-400); Platelet Morphology Comment Appears Decreased; Red Blood Cell (RBC) Count 3.39 mill/uL (4.70-6.10)
[2018-11-11] MEDS: Piperacillin/Tazobactam 2.25 GM in Sodium Chloride 0.9% 100 ML IVPB SCH ×2 (06:12→14:57)
--- NOTE | 2018-11-11 06:32 | PDOC.FM ---
- Subjective Subjective: pt remains intubated w/o sedation, not responsive to auditory or pain stimuli. spontaneous movements and gag reflex present - Objective Vital Signs & Weight: Vital Signs (12 hours) Temp Pulse Resp BP Pulse Ox 11/11/18 06:00 17 11/11/18 04:07 119 H 100/58 L 11/11/18 04:00 99.1 F 20 11/11/18 02:00 22 H 11/11/18 00:47 105 H 11/11/18 00:46 100 11/11/18 00:00 24 H 11/10/18 23:29 105 H 85/59 L 11/10/18 22:00 16 11/10/18 20:30 100 11/10/18 20:00 99.1 F 16 11/10/18 18:57 95 11/10/18 18:56 100 Weight Admit Weight 75.75 kg Weight 82.4 kg Most Recent Monitor Data Heart Rate from ECG 110 NIBP 76/46 NIBP BP-Mean 56 Respiration from ECG 21 SpO2 100 I&O: 11/09/18 11/10/18 11/11/18 06:59 06:59 06:59 Intake Total 1288 3149 1650 Output Total 1170 1750 Balance 1288 1978 - Result Diagrams: 11/11/18 04:56 11/11/18 04:56 Phys Exam - Physical Examination Constitutional: NAD HEENT: moist MMs Neck: no JVD transmitted UA breath sounds Cardiovascular: RRR GARRETT Gastrointestinal: soft no BS Musculoskeletal: no edema, pulses present Neurological: moves all 4 limbs Psychiatric: normal affect Skin: no rash Dx/Plan (1) Hepatic encephalopathy Code(s): K72.90 - HEPATIC FAILURE, UNSPECIFIED WITHOUT COMA Status: Acute (2) Hyperammonemia Code(s): E72.20 - DISORDER OF UREA CYCLE METABOLISM, UNSPECIFIED Status: Acute (3) Atrial fibrillation with normal ventricular rate Code(s): I48.91 - UNSPECIFIED ATRIAL FIBRILLATION Status: Acute (4) Cirrhosis of liver with ascites Code(s): K74.60 - UNSPECIFIED CIRRHOSIS OF LIVER Status: Acute (5) Congestive heart failure Code(s): I50.9 - HEART FAILURE, UNSPECIFIED Status: Acute (6) Encephalopathy acute Code(s): G93.40 - ENCEPHALOPATHY, UNSPECIFIED Status: Acute (7) Hyperglycemia Code(s): R73.9 - HYPERGLYCEMIA, UNSPECIFIED Status: Acute (8) Hyponatremia Code(s): E87.1 - HYPO-OSMOLALITY AND HYPONATREMIA Status: Acute (9) Lactic acid acidosis Code(s): E87.2 - ACIDOSIS Status: Acute (10) Leukocytosis, unspecified Code(s): D72.829 - ELEVATED WHITE BLOOD CELL COUNT, UNSPECIFIED Status: Acute (11) Diabetes Mellitus Type 2 in Nonobese Code(s): E11.9 - TYPE 2 DIABETES MELLITUS WITHOUT COMPLICATIONS Status: Chronic (12) ESRD on peritoneal dialysis Code(s): N18.6 - END STAGE RENAL DISEASE; Z99.2 - DEPENDENCE ON RENAL DIALYSIS Status: Chronic - Plan Plan: Hepatic vs metabolic encephalopathy - Ammonia has come down, coags up, ALT/AST elevated over weekend, coming down - Currently intubated and requiring no sedation - GI consulted, appreciate recs - OG lactulose as tolerated Acute hematemesis - bedside EGD reveals large amount of blood, varices ligated - octreotide, protonix Seizure activity - likely secondary to numerous electrolyte disturbance - ativan prn acid/base disturbance - Anion gap metabolic acidosis with respiratory alkalosis - Nephrology consulted, appreciate recs - pulm consulted, appreciate recs - peritoneal dialysis daily Small bowel ileus vs ischemic bowel - NG to low-intermediate wall suction. Lactulose enemas - minimal output from NG. - miralax and gentle hydration - consult surgery, Dr. Ivy: not surgical candidate septic shock - hypotense, elevated WBC, tachycardia, afebrile, CVP wnl - zosyn started (11/04) - Peritoneal fluid analysis without WBC or bacteria. cx NGTD - CXR without acute consolidation Hyperglycemia, DMII - Continue SS with 30u Lantus and hypoglycemic protocol. Hyperphosphatemia - dialysis as above ESRD on PD, missed 5 days prior to admission - Dr. Alexis consulted, continue perironteal dialysis with monitoring of lytes, appreciate recs Cirrhosis - see above - h/o of Hep C, treated, Hep C RNA pending. - RUQ US demonstrated cirrhosis, mild splenomegaly, and BL renal cysts HFpEF - echo reveals severe aortic stenosis, stable EF -Home meds currently held MDD - hold until NPO dc Code: Full - spoke with daughter (KINSEY) and confirmed code status Prophylaxis: SCD Diet: NPO abx: zosyn Disposition: poor prognosis, discuss goals of care Addendum - Attending - Attending Attestation Date/Time: 11/12/18 7547 I personally evaluated the patient and discussed the management with on 11/11/2018 I agree with the History, Examination, Assessment and Plan documented above with any addition or exceptions noted below - Intubated; minimall response to pain/tactile stimuli Afebrile VSS A/P: 1) Gi bleed secondary to varices- s/p banding- H/H stable; continue to monitor, 2) Encephalopathy- no improvment in mentation; continue to monitor, 3) Decompensated liver cirrhosis- INR increasing /thrombocytopenia. Poor prognosis. 4) Resp failure- unable to wean seconary to multi organ failure; plan for family meeting later today to review prognosis and clinical decline and goals of care
[2018-11-11 07:35] LABS: Actual Bicarbonate (HCO3a) 11.9 mEq/L (22-28); Base Excess (BEa) -10.3 mEq/L (-2.0 to +3.0); CO2 Tension 18.4 mmHg (35.0-45.0); Calcium, Ionized 0.96 mmol/L (1.12-1.30); Carboxyhemoglobin (COHb) 1.3 gm% (0.0-3.0); Hemoglobin (Hb) 10.9 g/dL (14.0-18.0); O2 Tension (PaO2) 77.8 mmHg (> 80.0); Potassium - ABG Lab 3.14 mmol/L (3.70-5.30); pH, Arterial 7.43 (7.35-7.45)
[2018-11-11 07:36] LABS: Puncture Site RRA
[2018-11-11] MEDS ORDERED: Potassium Chloride 40 MEQ in Premix Bag 1 BAG IVPB SCH (08:00)
[2018-11-11] MEDS ORDERED: Amiodarone 450 MG, Admixture Fee 1 EACH in Dextrose 5% in Water 250 ML IVPB SCH (08:15)
[2018-11-11] MEDS ORDERED: methylPREDNISolone Sod Succ 40 MG VIAL IVP SCH (09:00)
[2018-11-11] MEDS ORDERED: Insulin Glargine 30 UNITS in Pre-Filled Syringe 1 EACH SC SCH (09:00)
--- NOTE | 2018-11-11 09:35 | PRG ---
DATE OF SERVICE: 11/11/2018 SERVICE: Renal Medicine. SUBJECTIVE: Mr. Moore is a 68-year-old [place] male with ESRD and being followed up for his maintenance peritoneal dialysis. Tolerating the peritoneal dialysis. However, he remains unimproved. His mentation remains the same. He has a suspected ischemic bowel. At the same time, his hospitalization was masked by an upper GI bleed secondary to his varices which he subsequently underwent variceal banding. He remains unimproved. OBJECTIVE: VITAL SIGNS: Blood pressure is noted at 100/76 with a heart rate of 108, respiratory rate 19, and pulse ox 99%. GENERAL: Unresponsive, intubated on ventilator support. SKIN: Decreased turgor. HEENT: He has a pinkish conjunctivae. Anicteric sclerae. NECK: No neck mass. No carotid bruits. No JVD. CHEST: No deformities. LUNGS: Decreased breath sounds. HEART: Normal sinus rhythm. No murmur. No gallops. No rubs. ABDOMEN: Globular, soft, and nontender. No masses. Positive for PD catheter. EXTREMITIES: No edema. MEDICATIONS: Medications of November 11, 2018, was reviewed. LABORATORY DATA: Laboratories of November 11, 2018, was reviewed and showed the following; white count is 28, hemoglobin 10.9. Sodium 128, potassium 3.1, chloride 92, carbon dioxide 13, BUN 5, creatinine 6.55, AST 83, ALT 158. ASSESSMENT AND PLAN: 1. End-stage renal disease, stable. Continue current peritoneal dialysis regimen. He is tolerating said treatment. 2. Cirrhosis - supportive care. Status post banding of his esophageal varices secondary to the gastrointestinal bleed. 3. Gastrointestinal bleed, stable. 4. Mild hypokalemia, p.r.n. correction. 5. Ischemic bowel - supportive care. The patient is not a surgical candidate. I had a long discussion with the regarding poor prognosis. His daughter will be coming in and they will make a final decision regarding long-term care. Job ID: [id number]
[2018-11-11] MEDS: Polyethylene Glycol 3350 17 GM Packet PER TUBE SCH (09:50)
[2018-11-11 11:01] VITALS: BP 106/55
--- NOTE | 2018-11-11 11:30 | PDOC.PALCO ---
Palliative Care Consult - Consult Details Requesting Physician: Dr Campbell Reason for Consult: goals of care, advance directives assistance, assistance with communication prognosis/disease Family Members Present: at bedside - Pertinent HPI Trey has chronic condition and presented to the emergency room 11/02 with right-sided pain and angina that has been present great than 10 days with no increase in intensity. Patient with at home peritonial dialysis, but has not done in 5 days. Evaluated in the emergency room and subsequently admitted. Patient has had a hospitalization that has had continued decline. Currently intubated with multiorgan failure. Tien Gallagher RN has been in contact with and patient daughter. is MPOA however at times requests daughter makes decisions, she is the alternate decision maker listed. - Social History Smoking Status: Unknown if ever smoked Smoking: no tobacco exposure Alcohol Use: none Drug Use History: none Living Situation: - Medications MAR Reviewed: Yes - Allergies Allergies/Adverse Reactions: Allergies Allergy/AdvReac Type Severity Reaction Status Date / Time aspirin Allergy Mild Nausea Verified 11/05/16 03:20 - Objective Vital Signs: Vital Signs - Most Recent Temp Pulse Resp BP Pulse Ox 99.2 F 103 H 19 106/55 L 99 11/11/18 09:00 11/11/18 10:59 11/11/18 06:55 11/11/18 10:59 11/11/18 06:55 - Physical Exam Deviation from normal: unresponsive HEENT: moist MMs Deviation from normal: intubated, ronchi bilaterally Cardiovascular: RRR Gastrointestinal: soft, positive bowel sounds Musculoskeletal: edema present Deviation from normal: non responsive to auditory stimulation - Problem List (1) Palliative care encounter Code(s): Z51.5 - ENCOUNTER FOR PALLIATIVE CARE Current Visit: Yes Status: Acute (2) Muscular deconditioning Code(s): R29.898 - OTH SYMPTOMS AND SIGNS INVOLVING THE MUSCULOSKELETAL SYSTEM Current Visit: No Status: Acute (3) Physical deconditioning Code(s): R53.81 - OTHER MALAISE Current Visit: No Status: Acute (4) ESRD on peritoneal dialysis Code(s): N18.6 - END STAGE RENAL DISEASE; Z99.2 - DEPENDENCE ON RENAL DIALYSIS Current Visit: No Status: Chronic - Plan/Recommendations Plan: Tien Gallagher has had several conversations with patient in person and daughter via phone. Patient is not the mother of the daughter. Faily meeting today early afternoon to discuss goals of care and readdress poor prognosis and patient resuscitation status. Visited with GI who confirms continued liver failure adn deconditioning. Will support family as they make decisions in line with what would be patient wishes inlight of poor prognosis. [60] minutes spent on this encounter with >50% of the time in counseling and coordination of care. Thank you for this very appropriate consult.
--- NOTE | 2018-11-11 13:16 | PRG ---
DATE OF SERVICE: 11/11/2018 SUBJECTIVE: Mr. Moore remains obtunded on the ventilator. He is unsedated. He has had no stool output. We have attempted lactulose by mouth, but we just continued to get significant output from the OG tube to suction with that. OBJECTIVE: VITAL SIGNS: Blood pressure 101/62, pulse 75, and temperature 99.6. GENERAL: He withdraws slightly to pain, but otherwise is unresponsive. He has anasarca with pitting edema in the arms and legs. LUNGS: Clear to auscultation bilaterally. HEART: Regular rate and rhythm with a 3/6 systolic murmur in the left lower sternal border. ABDOMEN: Distended. Hypoactive bowel sounds. EXTREMITIES: Again, pitting edema, upper and lower 1+. LABORATORY DATA: White blood cell count 28.0, hemoglobin 10.9, platelets 94, 000. INR 2.1. Creatinine 6.55, bilirubin 3.4, AST 83, ALT 158, alkaline phosphatase 161. Ammonia yesterday was 72. IMPRESSION: 1. Hepatic encephalopathy. His bleeding has stopped and his ammonia is coming down. He remains encephalopathic. He did receive a couple milligram of Versed around 4 days ago, but has otherwise been unsedated. We have tried lactulose through the NG tube, but we are getting no stool output associated with that and just continued abdominal distention and output from OG suction. At this point, we will discontinue the oral lactulose. We will have to resume rectal administration. 2. Acute upper gastrointestinal bleed secondary to esophageal varices, status post banding of the varices x6. He has had no further overt bleeding since the varices were banded and he is off octreotide now. 3. Cirrhosis of the liver, now with decompensation with increase in bilirubin, increase in INR, varices, and hepatic encephalopathy. 4. End-stage renal disease, on peritoneal dialysis. 5. Ileus. Still with no stool output. RECOMMENDATIONS: 1. Continue low intermittent suction with the OG tube. 2. He has shown that he is having no throughput with the lactulose and therefore this will be discontinued as it may just worsen abdominal distention and bowel distention and does not appear to be reaching the colon. I will resume rectal administration. 3. The palliative care team and treating team will be meeting with the family this afternoon. This family chooses to continue full supportive care, then we will plan to start TPN this afternoon. 4. Can change from pantoprazole drip to b.i.d. dosing. Job ID: [id number] MTDD
--- NOTE | 2018-11-11 13:16 | EKG ---
Test Reason : Blood Pressure : / mmHG Vent. Rate : 087 BPM Atrial Rate : 087 BPM P-R Int : 194 ms QRS Dur : 106 ms QT Int : 388 ms P-R-T Axes : 014 -18 025 degrees QTc Int : 466 ms Normal sinus rhythm Normal ECG Confirmed by JOJO DE SANTIAGO DO ([id number]), subeditor KEVIN US ([id number]) on 11/11/2018 1:16:00 PM Referred By: Confirmed By:JOJO DE SANTIAGO DO
--- NOTE | 2018-11-11 13:22 | PRG ---
DATE OF SERVICE: 11/11/2018 SERVICE: Pulmonary Medicine. INTERVAL HISTORY: The patient is doing poorly from mentation standpoint. He has yet to really wake up in any meaningful capacity. He remains a full code. He cannot provide any additional elements of the history. Nursing reports no significant events overnight other than he went back into atrial fibrillation. PHYSICAL EXAMINATION: VITAL SIGNS: Afebrile, pulse 115, blood pressure 101/62, respirations 20, and saturation 100% on 21% FiO2 and a PEEP of 5. GENERAL: The patient is intubated. He is completely obtunded. HEENT: Normocephalic and atraumatic. Sclerae are white. Conjunctivae are pink. Oral mucosa is moist without lesions. LUNGS: Decent air entry. There is no prolonged expiratory phase. Rhonchi are present. He has some dependent crackles noted. HEART: Normal rate, regular. ABDOMEN: Soft, distended. Bowel sounds are hypoactive. GENITOURINARY: Jeter catheter in place. NEUROLOGIC: He is grossly nonfocal, but demonstrates a diffuse encephalopathy. With noxious stimuli to bilateral upper and lower extremities, he demonstrates some withdrawal features and has a grimace. Pupils are equal, round, and reactive. He over-breathe the ventilator comfortably, and has a good cough and gag. With noxious stimuli to bilateral lower extremities, he does not withdraw. Lastly, Babinski is neutral. LABORATORY DATA: WBC 28.0, hemoglobin 10.9, platelets 94,000, neutrophils are 84% on top of 11% bands. INR 2.1. This continues to trend upward. PH of 7.43, pCO2 of 18, and pO2 of 77. Sodium 128, potassium 3.1. Basic metabolic profile is otherwise stable. Creatinine 6.5. AST, ALT, and alkaline phosphatase are all downtrending to the normal range. Procalcitonin is 2 and downtrending. TSH 0.8. Blood sugars have stabilized to some degree without his D10 drip. ASSESSMENT: 1. Respiratory failure secondary to inability to protect airway. 2. Metabolic encephalopathy. 3. End-stage renal disease, on peritoneal dialysis. 4. Cirrhosis, fairly advanced. 5. Septic shock secondary to suspected GI source. 6. Ileus. 7. Acute blood loss anemia, status post variceal bleed with banding x3. 8. Atrial fibrillation with rapid ventricular response, paroxysmal. 9. Multisystem organ dysfunction. DISCUSSION AND PLAN: I had a conversation with the patient's today. I have reiterated that the patient has a very severe kidney disease and liver disease. He has toxins that are building up in his bloodstream that we are having a hard time clearing. Ultimately, this is promoting his encephalopathy. She understands that his lungs are fairly healthy and that the only reason that tube is in his throat is to keep him from developing a severe respiratory infection as he is too sleepy to protect his airway. I have also explained to her for the last week, he has required absolutely no sedation to remain comfortable on the ventilator and that the ventilator is not causing his sleepiness. Ultimately, Palliative Care discussions will be continued. I do not think that the patient will be able to recover quickly from this process if he is capable of doing so. I asked the patient whether or not he would be able to participate with physical therapy in a meaningful way, and she chose not to answer that question. He will remain in the ICU. CRITICAL CARE TIME: 30 minutes. Job ID: [id number]
[2018-11-11] MEDS ORDERED: Morphine 2 MG/ML SYRINGE IVP PRN (15:49)
[2018-11-11] MEDS ORDERED: Lorazepam 2 MG/ML VIAL SLOW IVP PRN (15:50)
--- NOTE | 2018-11-11 15:53 | PDOC.PALFU ---
Palliative Care Follow-up Note Tien Gallagher RN and Dr Umanzor met with family and discussed end of life. Family seeking comfort measures for patient. Hospice to be consulted.
[2018-11-11] MEDS ORDERED: Scopolamine 1.5 mg/72 hour Patch TD SCH (16:00)
[2018-11-11] MEDS ORDERED: Lactulose 10 GM/15 ML Oral Solution PR SCH (16:00)
[2018-11-11 17:16] VITALS: TEMP 99.5
[2018-11-11] MEDS ORDERED: Pantoprazole 40 MG VIAL IVP SCH (21:00)
--- NOTE | 2018-11-12 15:11 | DIS ---
DATE OF ADMISSION: 11/03/2018 DATE OF DISCHARGE: 11/11/2018 ADMITTING ATTENDING: Sophie Moses MD DISCHARGE ATTENDING: Julia Harden MD. RESIDENT: Archie Umanzor DO. CONSULTS: 1. GI, Dr. Karan Valerio. 2. Dr. Tim Ivy, General Surgery. 3. Nephrology, Dr. Zan Herrera. 4. Pulmonology, Dr. Cristóbal Basurto. 5. Nephrology, Dr. Juan C Alexis. PROCEDURES: Daily peritoneal dialysis during his hospital stay. IMAGING STUDIES: 1. Multiple abdominal CT and x-rays revealed concern for small bowel obstruction versus ileus. 2. Echocardiogram revealed stable ejection fraction from previous reports. DISCHARGE MEDICATIONS: 1. Atorvastatin 40 mg p.o. daily. 2. Melatonin 3 mg p.o. at bedtime. 3. Mirtazapine 15 mg p.o. at bedtime. 4. Amitriptyline 10 mg p.o. at bedtime. 5. Amiodarone 200 mg p.o. daily. 6. Renvela 800 mg p.o. t.i.d. 7. Vitamin D3 2000 units p.o. daily. 8. Tramadol 50mg p.o. q.6 hours. 9. Insulin 30 units subcutaneous daily. 10. Gabapentin 300 mg p.o. b.i.d. DISCHARGE DIAGNOSIS: Metabolic encephalopathy secondary to acid-base status. SECONDARY DIAGNOSES: 1. End-stage renal disease, not resolved with dialysis. 2. End-stage liver disease with shock liver. 3. Small-bowel ileus versus ischemic bowel. 4. Septic shock. 5. Hyperglycemia. 6. Heart failure with preserved ejection fraction. HISTORY OF PRESENT ILLNESS/HOSPITAL COURSE: Mr. Moore is a 68-year-old male who initially came with chief complaint right-sided body pain and it was determined that he had not done his peritoneal dialysis for 5 days. He was admitted to the hospital for dialysis and monitoring. Shortly, he became encephalopathic and was not able to be aroused. Secondary to the patient not being able to protect his airway, an emergent intubation was initiated after the patient was moved to the ICU. The patient required little respiratory support, minimal circulatory support throughout his hospital stay, but executive functioning and painful/sensory stimulus left him quickly and did not respond to any sort of therapeutic treatments. Antibiotics were given, which did not improve. His ammonia level did drop to normal range and he still did not have much of response. Surgery was consulted and determined along with this family that a surgery was not an option. At that point, the patient continued to decline and exhibited only primitive brainstem reflexes. Palliative Care was consulted and they arrived and decided to transfer the patient to inpatient hospice. Job ID: [id number] MTDD
== END 2018-11-11 18:48 | disposition hospice, inpatient (51) | DRG 441 ==
LOC: ERS 13:15 → 2NO 18:48 → OBSVTOIN 11-03 10:23 → CCU 11-04 07:15
PROVIDERS: ADMIT Family Medicine; ATTEND Family Medicine
PROC: 0BH17EZ Insertion of Endotracheal Airway into Trachea, Via Natural or Artificial Opening (ICD-10-PCS; principal; 2018-11-04)
PROC: 5A1945Z Respiratory Ventilation, 24-96 Consecutive Hours (ICD-10-PCS; 2018-11-04)
PROC: 5A1D70Z Performance of Urinary Filtration, Intermittent, Less than 6 Hours Per Day (ICD-10-PCS; 2018-11-04)
PROC: 0DJ08ZZ Inspection of Upper Intestinal Tract, Via Natural or Artificial Opening Endoscopic (ICD-10-PCS; 2018-11-07)
PROC: 06L38CZ Occlusion of Esophageal Vein with Extraluminal Device, Via Natural or Artificial Opening Endoscopic (ICD-10-PCS; 2018-11-07)
DX: K72.90 Hepatic failure, unspecified without coma (principal); J96.90 Respiratory failure, unspecified, unspecified whether with hypoxia or hypercapnia; N18.6 End stage renal disease; G93.41 Metabolic encephalopathy; A41.9 Sepsis, unspecified organism; R65.21 Severe sepsis with septic shock; I85.01 Esophageal varices with bleeding; I13.2 Hypertensive heart and chronic kidney disease with heart failure and with stage 5 chronic kidney disease, or end stage renal disease; D62 Acute posthemorrhagic anemia; E72.20 Disorder of urea cycle metabolism, unspecified; I50.32 Chronic diastolic (congestive) heart failure; E87.1 Hypo-osmolality and hyponatremia; R18.8 Other ascites; E87.2 Acidosis; Z66 Do not resuscitate; K21.9 Gastro-esophageal reflux disease without esophagitis; E11.22 Type 2 diabetes mellitus with diabetic chronic kidney disease; B18.2 Chronic viral hepatitis C; E78.5 Hyperlipidemia, unspecified; F32.9 Major depressive disorder, single episode, unspecified; E11.40 Type 2 diabetes mellitus with diabetic neuropathy, unspecified; R07.89 Other chest pain; I48.91 Unspecified atrial fibrillation; E87.5 Hyperkalemia; R53.81 Other malaise; E11.65 Type 2 diabetes mellitus with hyperglycemia; E83.39 Other disorders of phosphorus metabolism; K74.60 Unspecified cirrhosis of liver; I95.9 Hypotension, unspecified; Z99.2 Dependence on renal dialysis; Z88.8 Allergy status to other drugs, medicaments and biological substances; Z79.899 Other long term (current) drug therapy; Z87.891 Personal history of nicotine dependence
CPT/HCPCS: 36415; 36416; 36430; 70450; 71045; 74018; 74019; 74177; 76700; 80048; 80053; 80076; 82140; 82550; 82553; 82805; 83605; 83690; 83735; 84100; 84145; 84443; 84484; 85025; 85610; 85730; 86850; 86900; 86901; 87040; 87045; 87046; 87070; 87205; 87340; 87449; 87521; 87899; 89051; 90945; 93005; 93010; 93306; 94002; 94003; 94640; 94760; C9113; G0257; J0171; J0282; J1160; J1430; J1644; J1815; J2060; J2250; J2270; J2354; J2405; J2543; J2765; J2920; J3480; J3490; J7050; J7070; J7620; P9016; P9047; Q0162; Q9966

== ENCOUNTER 2018-11-11 19:11 | Inpatient (IN) | payer OTHER ==
[2018-11-11] MEDS ORDERED: Haloperidol Lactate 5 MG/ML VIAL SLOW IVP PRN (20:25)
[2018-11-11] MEDS ORDERED: Lorazepam 2 MG/ML VIAL SLOW IVP PRN (20:25)
[2018-11-11] MEDS ORDERED: Ondansetron PF 4 MG/2 ML Vial IVP PRN (20:25)
[2018-11-11] MEDS ORDERED: diphenhydrAMINE 50 MG/ML VIAL IVP PRN (20:25)
[2018-11-11] MEDS: Morphine 2 MG/ML SYRINGE SLOW IVP PRN (20:54)
[2018-11-11] MEDS: Sodium Chloride 0.9% 1,000 ML IV SCH ×2 (20:55→23:41)
[2018-11-11] MEDS ORDERED: Scopolamine 1.5 mg/72 hour Patch TOP SCH (21:00)
[2018-11-11] MEDS: Morphine 2 MG/ML SYRINGE SLOW IVP SCH (23:42)
[2018-11-12] MEDS: Morphine 2 MG/ML SYRINGE SLOW IVP SCH ×4 (06:16→23:11)
[2018-11-12] MEDS: Morphine 2 MG/ML SYRINGE SLOW IVP PRN (08:57)
--- NOTE | 2018-11-12 09:46 | PRG ---
DATE OF SERVICE: 11/12/2018 SUBJECTIVE: Lynne Moore remains on a non-monitored bed. OBJECTIVE: VITAL SIGNS: Temperature 97, pulse respiratory rate 18, saturations 99%, blood pressure 83/50. GENERAL: Jaundiced. CHEST: Decreased breath sounds. No wheezing. CARDIAC: Normal S1 and S2. No gallops. ABDOMEN: No masses. IMPRESSION: Multiorgan failure secondary to cirrhosis and renal failure. PLAN: Comfort care, hospice. Pulmonary will follow at a distance. Job ID: [id number]
--- NOTE | 2018-11-12 10:25 | PRG ---
DATE OF SERVICE: 11/12/2018 SUBJECTIVE: Mr. Moore is a 68-year-old [place] male with ESRD and Renal Service is following up for his peritoneal dialysis. In the interim, he has not done well. He has a cirrhosis associated with bleeding varices. He underwent upper GI endoscopy with banding of the varices. However, the patient has never awakened since admission. The family has decided to proceed with hospice. He underwent peritoneal dialysis last night without any difficulty. OBJECTIVE: VITAL SIGNS: Blood pressure is 83/50, heart rate 86, respiratory rate 18, temperature 97.4, and pulse ox 100%. GENERAL: The patient is unresponsive. HEENT: Pinkish conjunctivae. Icteric sclerae. NECK: No neck mass. LUNGS: Decreased breath sounds. HEART: Normal sinus rhythm. No murmur. No gallops. No rubs. ABDOMEN: Globular, soft, and nontender. Positive for PD catheter. EXTREMITIES: No edema. MEDICATIONS: Medications of November 12, 2018, was reviewed. LABORATORY DATA: None done. ASSESSMENT AND PLAN: 1. End-stage renal disease - due to his worsening medical condition and the fact that the patient has been placed on hospice. We will discontinue peritoneal dialysis. 2. Cirrhosis - the patient has end-stage liver disease. I agree with current management of having hospice takeover. We will be signing off. Job ID: [id number]
[2018-11-12 19:32] VITALS: BP 66/39; TEMP 98.5
[2018-11-13] MEDS: Morphine 2 MG/ML SYRINGE SLOW IVP PRN (01:02)
--- NOTE | 2018-11-14 11:31 | DIS ---
DATE OF ADMISSION: 11/11/2018 DATE OF DISCHARGE: 11/13/2018 REASON FOR ADMISSION TO HOSPICE: End-stage renal disease, end-stage liver disease with shock liver and ileus, nonoperable. SUMMARY OF HISTORY AND PHYSICAL: The patient is a 68-year-old male with end-stage renal failure, on peritoneal dialysis as well as end-stage liver failure, who presented to the [facility] on 11/03/2018, with altered mental status as well as pain. Apparently, the patient has not done his peritoneal dialysis for 5 days. He was admitted to the hospital for dialysis and monitoring. The patient became encephalopathic and unarousable requiring emergent intubation, transferred to the ICU. The patient continued to remain unresponsive and developed what appeared to be an ileus. As the patient is not a candidate for surgery, it was determined that most appropriate for the patient is to be transferred to inpatient hospice and have hospice care only. This was decided on 11/11/2018, and the patient was transferred to inpatient hospice care. BRIEF SUMMARY OF HOSPITAL COURSE: The patient was given one episode of peritoneal dialysis on the night of his admission to inpatient hospice mainly for palliative measures only. Over the next 24 to 36 hours, the patient continued to be unresponsive, began having some worsening respiratory status and the patient on 11/13/2018, at 01:15 in the morning. Nursing staff went to the bed side. The patient had no respirations, no pulse and was unresponsive and was pronounced at that time. Cause of was likely asystole secondary to cardiac arrhythmia related to both renal and liver failure. Family was consulted and the body was transferred to the home per family wishes. Job ID: [id number]
== END 2018-11-13 01:18 | disposition expired | DRG 951 ==
LOC: CCU 19:11 → T4-B 22:40
PROVIDERS: ADMIT Family Medicine; ATTEND Family Medicine
PROC: 5A1D70Z Performance of Urinary Filtration, Intermittent, Less than 6 Hours Per Day (ICD-10-PCS; principal; 2018-11-10)
DX: Z51.5 Encounter for palliative care (principal); N18.6 End stage renal disease; I13.2 Hypertensive heart and chronic kidney disease with heart failure and with stage 5 chronic kidney disease, or end stage renal disease; I50.32 Chronic diastolic (congestive) heart failure; K56.7 Ileus, unspecified; E78.5 Hyperlipidemia, unspecified; K72.90 Hepatic failure, unspecified without coma; F32.9 Major depressive disorder, single episode, unspecified; K21.9 Gastro-esophageal reflux disease without esophagitis; Z66 Do not resuscitate; B18.2 Chronic viral hepatitis C; E11.40 Type 2 diabetes mellitus with diabetic neuropathy, unspecified; K74.60 Unspecified cirrhosis of liver; E11.22 Type 2 diabetes mellitus with diabetic chronic kidney disease; Z79.4 Long term (current) use of insulin; Z99.2 Dependence on renal dialysis; Z87.891 Personal history of nicotine dependence; Z86.73 Personal history of transient ischemic attack (TIA), and cerebral infarction without residual deficits
CPT/HCPCS: J2060; J2270